=== PATIENT | male | born 1955 | race Caucasian/White ===

== ENCOUNTER → 2017-10-14 07:04 | Outpatient (CLI) | payer MEDICARE, SELFPAY ==
--- NOTE | 2017-10-14 07:06 | ECHOCS_ITS ---
Reason For Study: Dyspnea/SOB Procedure This was a 2D Doppler, Color Flow transthoracic echocardiogram. The exam was of poor technical quality due to body habitus. The study was technically difficult. Contrast injection was performed. Exam performed in department. Left Ventricle Mildly dilated left ventricle. Mild to moderate global left ventricular systolic dysfunction. The estimated ejection fraction is 40 %. There is evidence of diastolic dysfunction. Right Ventricle Normal RV size. ICD or pacer leads identified within the right ventricle. Normal systolic function. Atria Normal left atrium. Normal right atrium. ICD or pacer leads identified within the right atrium. No doppler evidence for ASD. Mitral Valve There is no mitral annular calcification. Normal mitral valve. Trivial mitral valve insufficiency. Tricuspid Valve Normal tricuspid valve. Trivial tricuspid valve insufficiency. Unable to estimate RV systolic pressure/pulmonary artery pressure due to technically difficult study. Aortic Valve Trisinus/trileaflet aortic valve. Normal aortic valve. Pulmonic Valve The pulmonic valve is not well visualized. Great Vessels Normal sized aortic root. Pericardium/Pleural No pericardial effusion. Medication 22 gauge I.V. with prn adaptor inserted into right arm. Diluted definity 2ml given slow IV push to enhance endocardial definition. MMode/2D Measurements & Calculations LVIDd: 5.6 cm IVSd: 1.1 cm Ao root diam: 3.4 cm LVIDs: 4.2 cm LVPWd: 1.4 cm LA dimension: 4.0 cm FS: 25.3 % LAV(MOD-bp): 60.7 ml LA A4 area: 16.4 cm2 RA A4 area: 13.7 cm2 LAV(MOD-bp) Indexed: 23.3 ml/m2 LAV(MOD-sp2): 80.5 ml LAV(MOD-sp4): 43.9 ml Time Measurements MV dec time: 0.16 sec Doppler Measurements & Calculations MV E max ian: 69.7 cm/sec Lat Peak E' Ian: 7.2 cm/sec Med Peak E' Ian: 4.0 cm/sec MV A max ian: 106.1 cm/sec E/E' lat: 9.6 E/E' med: 17.4 MV E/A: 0.66 MV V2 max: 123.9 cm/sec MV P1/2t max ian: 71.9 cm/sec Ao V2 max: 120.7 cm/sec MV max P.1 mmHg MV P1/2t: 130.5 msec Ao max P.8 mmHg MV V2 mean: 60.5 cm/sec MV dec slope: 161.4 cm/sec2 Ao V2 mean: 75.5 cm/sec MV mean P.8 mmHg MVA(P1/2t): 1.7 cm2 Ao mean P.7 mmHg MV V2 VTI: 35.5 cm Ao V2 VTI: 20.7 cm LV V1 max: 91.3 cm/sec PA V2 max: 80.9 cm/sec LV V1 max P.3 mmHg LV V1 mean P.6 mmHg LV V1 mean: 57.4 cm/sec LV V1 VTI: 19.1 cm Interpretation Summary The study was technically difficult. Contrast injection was performed. Mildly dilated left ventricle. Mild to moderate global left ventricular systolic dysfunction. The estimated ejection fraction is 40 %. Trivial mitral valve insufficiency. Trivial tricuspid valve insufficiency. Unable to estimate RV systolic pressure/pulmonary artery pressure due to technically difficult study. There is evidence of diastolic dysfunction. ICD or pacer leads identified within the right atrium ICD or pacer leads identified within the right ventricle. Ordering Physician: Jaden Ndiaye Referring Physician: Jaden Ndiaye Performed By: Mack King [facility]
--- NOTE | 2017-10-14 16:15 | STRESSREP ---
Stress Test Report Date: 10/14/2017 Procedure: Pharmacologic stress nuclear imaging study Indications: Shortness of breath/dyspnea Consent: Per the patient Procedure: The patient underwent pharmacologic (Regadenoson) evaluation with a peak heart rate of 80 beats per minute (50 predicted maximal heart rate) and a peak blood pressure of 146/94 mmHg. The baseline ECG demonstrated normal sinus rhythm with poor R-wave progression. The peak pharmacologic ECG demonstrated no obvious ECG changes. There were no cardiac dysrhythmias pretest, during pharmacologic infusion, or recovery. There was no complaint of chest discomfort during pharmacologic infusion or recovery. The examination was discontinued secondary to completion of protocol. Impression: 1. Pharmacologic (Regadenoson) evaluation 2. Peak pharmacologic ECG with no obvious ECG changes. 3. There were no cardiac dysrhythmias pretest, during pharmacologic infusion, or recovery 4. Nuclear images pending Myocardial perfusion imaging study: Technique: The patient was injected with 14 millicuries of technetium 99m Cardiolite and subsequently rest SPECT Cardiolite nuclear imaging was obtained in the horizontal long, vertical long, and short axis views. The patient underwent pharmacologic (Regadenoson) evaluation with a peak heart rate of 80 beats per minute (50 % percent predicted maximal heart rate) and a peak blood pressure of 146/94 mmHg. The patient was injected with 45 millicuries of technetium 99m Cardiolite and subsequently stress SPECT Cardiolite nuclear imaging was obtained in the horizontal long, vertical long, and short axis views. A gated Cardiolite study at peak stress was obtained. Interpretation: Rest and stress SPECT Cardiolite nuclear imaging status post realignment, normalization, and attenuation correction demonstrate the appearance of relative uniform tracer uptake and myocardial perfusion appearing within normal limits. There is end systolic thickening and brightening. The gated Cardiolite study demonstrates myocardial thickening and inward wall motion. The reported LVEF is 43 %. Impression: 1. Rest and stress SPECT Cardiolite nuclear imaging demonstrate relative uniform tracer uptake and myocardial perfusion appearing within normal limits. 2. The gated Cardiolite study reports an LVEF of 43 %. This note was generated with [employer] software. It may contain incorrect words, spelling, and punctuation that were not noted in checking the note before signing.
== END ==
PROVIDERS: Visit Provider Internal Medicine Cardiovascular Disease
DX: I42.0 Dilated cardiomyopathy (principal); I50.22 Chronic systolic (congestive) heart failure; R06.02 Shortness of breath
CPT/HCPCS: 78452; 93017; 93306; A9500; Q9957; A4216; C8929; J2785

== ENCOUNTER → 2018-04-07 10:58 | Outpatient (CLI) | payer MEDICARE, SELFPAY ==
[2018-04-07 13:07] LABS: AST(SGOT) 20 U/L (15-37); Alanine Aminotransfer ALT/SGPT 37 U/L (16-61); Albumin, Serum 3.7 g/dL (3.2-5.0); Alkaline Phosphatase 66 U/L (45-117); Anion Gap 7 (5-15); BUN 14 mg/dL (7-18); BUN/Creat Ratio 18.9 RATIO (10-20); Bilirubin, Direct 0.15 mg/dL (0.00-0.30); Calcium,Total 8.3 mg/dL (8.5-10.1); Chloride 104 mmol/L (98-107); Cholesterol 153 mg/dL (200); Creatinine, Serum 0.74 mg/dL (0.70-1.30); EST Glomerular Filtration Rate 113 mL/min (>60); Est Glom Filt Rate - Afr Amer 137 mL/min (>60); Globulin 3.6 g/dL (2.2-4.2); Glucose 112 mg/dL (74-106); High Density Lipoprotein 31 mg/dL; Potassium 4.1 mmol/L (3.5-5.1); Protein, Total 7.3 g/dL (6.4-8.2); Sodium Level 138 mmol/L (136-145); Triglycerides 295 mg/dL; Very Low Density Lipoprotein 59 mg/dL (5-40)
== END ==
PROVIDERS: Visit Provider Physician Assistant Medical
DX: I50.22 Chronic systolic (congestive) heart failure (principal); E78.5 Hyperlipidemia, unspecified
CPT/HCPCS: 36415; 80048; 80061; 80076

== ENCOUNTER → 2018-07-21 12:45 | Outpatient (CLI) | payer MEDICARE, SELFPAY ==
[2018-07-09 10:24] VITALS: BMI 35.8
--- NOTE | 2018-07-21 13:19 | ART_ITS ---
Reason For Study: PVD Procedure A bilateral lower extremity continuous wave Doppler with analog waveform analysis,segmental pressures,and ankle brachial indexes with exercise. Left Segmental Pressures Left brachial= 122mmHg. Left posterior tibial artery = 133mmHg. Left dorsalis pedis artery = 123mmHg. The left dorsalis pedis waveforms are triphasic. The left posterior tibial artery waveforms are triphasic. Right Segmental Pressures Right brachial= 123mmHg. Right thigh = 121mmHg. Right calf = 100mmHg. Right posterior tibial artery = 108mmHg. Right dorsalis pedis artery = 108mmHg. The right dorsalis pedis waveforms are biphasic. The right posterior tibial artery waveforms are biphasic. Indices The right ankle brachial index by the dorsalis pedis is 0.88. The right ankle brachial index by the posterior tibial artery is 0.88. The right post exercise ankle brachial index is 0.52. The left ankle brachial index by the dorsalis pedis is 1.00. The left ankle brachial index by the posterior tibial artery is 1.08. The left post exercise ankle brachial index is 0.87. Interpretation Summary Findings are consistent with vascular occlusive disease in the range of claudication more notable on the right than the left. The level of disease on the right may be superficial femoral/popliteal and on the left cannot be determined. Critical ischemia is not identified bilaterally. Ordering Physician: Taqueria Jo Performed By: Nikolay Brewer RVT and Student
== END ==
PROVIDERS: Referring Provider Surgery; Visit Provider Surgery
DX: I73.9 Peripheral vascular disease, unspecified (principal)
CPT/HCPCS: 93923

== ENCOUNTER → 2018-07-24 08:29 | Outpatient (CLI) | payer MEDICARE, SELFPAY ==
[2018-07-24 08:09] VITALS: BMI 35.8
[2018-07-24 09:11] LABS: Anion Gap 5 (5-15); BUN 15 mg/dL (7-18); BUN/Creat Ratio 18.6 RATIO (10-20); Calcium,Total 8.7 mg/dL (8.5-10.1); Chloride 102 mmol/L (98-107); Creatinine, Serum 0.81 mg/dL (0.70-1.30); EST Glomerular Filtration Rate 103 mL/min (>60); Est Glom Filt Rate - Afr Amer 124 mL/min (>60); Glucose 212 mg/dL (74-106); Sodium Level 135 mmol/L (136-145)
== END ==
PROVIDERS: Referring Provider Surgery; Visit Provider Surgery
DX: I73.9 Peripheral vascular disease, unspecified (principal); E78.5 Hyperlipidemia, unspecified
CPT/HCPCS: 36415; 80048

== ENCOUNTER → 2018-07-31 07:51 | Outpatient (CLI) | payer MEDICARE, SELFPAY ==
[2018-07-24 08:09] VITALS: BMI 35.8
--- NOTE | 2018-07-31 08:00 | CT_ITS ---
STUDY: CTA OF THE ABDOMINAL AORTA AND BILATERAL LOWER EXTREMITIES REASON FOR EXAM: Male, 62 years old. Peripheral vascular disease. RADIATION DOSAGE (If Supplied By Facility): CTDIvol = ( 7.79 ) mGy, DLP = ( 1812.95 ) mGycm TECHNIQUE: Axial CT angiography multi-detector data acquisition was obtained from the to the following intravenous administration of Isovue 370 100 IV. Axial images and MIP images were reconstructed from the axial data set. Post-processing of the angiographic images was performed, with multiplanar reformation and 3D reconstruction. Individualized dose optimization techniques were used for this CT. TECHNICAL QUALITY: Good COMPARISON: 02/17/2014. Descriptors of Narrowing: None (0%) Mild (< 50%) Moderate (50-70%) Severe (70-90%) Subtotal/Total Occlusion (90-100%) Non-Evaluable (technically non-diagnostic FINDINGS: There again is diffuse fatty infiltration of the liver. There is a 1.5 cm cyst in the spleen. There is a small cyst in the right kidney. There is no evidence of gallstones. The small bowel loops are normal in caliber. There is fecal retention. There is diverticulosis of the sigmoid colon with fluid-filled sigmoid colon. Acute diverticulitis is not definitely seen. Abdominal aorta: Large peripheral clots in the peripheral aspect of the aorta extending from the level of the renal arteries to the level of the bifurcation with significant narrowing markedly worse than the previous examination. The stenosis is most severe just proximal to the bifurcation where there is an area of near complete occlusion. Celiac and superior mesenteric arteries: No demonstrated narrowing. Inferior mesenteric artery: No demonstrated narrowing. Right renal artery(arteries): Minimal atherosclerotic calcification at its origin without significant stenosis. Left renal artery(arteries): No demonstrated narrowing. 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 Right external iliac artery: No demonstrated narrowing. Right internal iliac artery: There is moderate diffuse narrowing. Left common iliac artery: Eccentric atherosclerotic calcifications with no significant stenosis. Left external iliac artery: No demonstrated narrowing. Left internal iliac artery: No demonstrated narrowing. RIGHT LOWER EXTREMITY Right common femoral artery: No significant stenosis. Presence of femoral-femoral graft change since the prior exam. Right profundus femoris: No demonstrated narrowing. Right superficial femoral: No demonstrated narrowing. Right popliteal artery: No demonstrated narrowing. Right tibioperoneal trunk: No demonstrated narrowing. Right anterior tibial artery: No demonstrated narrowing. Right posterior tibial artery: No demonstrated narrowing. Right peroneal artery: No demonstrated narrowing. LEFT LOWER EXTREMITY Left common femoral artery: No demonstrated narrowing. Left profundus femoris: No demonstrated narrowing. Left superficial femoral: No demonstrated narrowing. Left popliteal artery: No demonstrated narrowing. Left tibioperoneal trunk: No demonstrated narrowing. Left anterior tibial artery: No demonstrated narrowing. Left posterior tibial artery: No demonstrated narrowing. Left peroneal artery: No demonstrated narrowing. CT/CTA Abd w/Runoff W/WO Contrast IMPRESSION: 1. Significant atherosclerotic plaques and thrombus in the distal abdominal aorta markedly worse than the previous examination. 2. 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 3. Femoral-femoral graft unchanged. 4. No significant stenosis is seen in both lower extremities. 5. Fatty infiltration of the liver. 6. Splenic and right renal cysts. Electronically Signed: Florencio Tam MD at 9:00 EST Tel , Service support ,
== END ==
PROVIDERS: Referring Provider Surgery; Visit Provider Surgery
DX: I73.9 Peripheral vascular disease, unspecified (principal)
CPT/HCPCS: 75635; Q9967

== ENCOUNTER → 2019-01-19 | Outpatient (CLI) | payer MEDICARE, SELFPAY ==
[2019-01-19 08:36] VITALS: BMI 36.2
[2019-01-19 13:03] LABS: AST(SGOT) 23 U/L (15-37); Alanine Aminotransfer ALT/SGPT 34 U/L (16-61); Albumin, Serum 3.6 g/dL (3.2-5.0); Alkaline Phosphatase 82 U/L (45-117); Bilirubin, Direct 0.08 mg/dL (0.00-0.30); Cholesterol 134 mg/dL (200); Globulin 3.6 g/dL (2.2-4.2); High Density Lipoprotein 32 mg/dL; Protein, Total 7.2 g/dL (6.4-8.2); Triglycerides 247 mg/dL; Very Low Density Lipoprotein 49 mg/dL (5-40)
== END | disposition home or self-care (01) ==
LOC: POLAB3 10:46
PROVIDERS: Visit Provider Physician Assistant Medical
DX: E78.00 Pure hypercholesterolemia, unspecified (principal)
CPT/HCPCS: 36415; 80061; 80076

== ENCOUNTER → 2019-07-20 08:24 | Outpatient (CLI) | payer MEDICARE, SELFPAY ==
[2019-07-19 09:51] VITALS: BMI 36.2
[2019-07-20 11:09] LABS: AST(SGOT) 23 U/L (15-37); Alanine Aminotransfer ALT/SGPT 39 U/L (16-61); Albumin, Serum 3.6 g/dL (3.2-5.0); Alkaline Phosphatase 96 U/L (45-117); Bilirubin, Direct 0.16 mg/dL (0.00-0.30); Cholesterol 148 mg/dL (200); Globulin 3.7 g/dL (2.2-4.2); High Density Lipoprotein 35 mg/dL; Protein, Total 7.3 g/dL (6.4-8.2); Triglycerides 279 mg/dL; Very Low Density Lipoprotein 56 mg/dL (5-40)
== END ==
PROVIDERS: Referring Provider Internal Medicine Cardiovascular Disease; Visit Provider Internal Medicine Cardiovascular Disease
DX: E78.00 Pure hypercholesterolemia, unspecified (principal)
CPT/HCPCS: 36415; 80061; 80076

== ENCOUNTER → 2020-02-01 09:21 | Outpatient (CLI) | payer MEDICARE, SELFPAY ==
[2020-01-24 08:32] VITALS: BMI 33.3
[2020-02-01 10:25] LABS: AST(SGOT) 21 U/L (15-37); Alanine Aminotransfer ALT/SGPT 37 U/L (16-61); Albumin, Serum 3.9 g/dL (3.2-5.0); Alkaline Phosphatase 91 U/L (45-117); Cholesterol 169 mg/dL (200); Globulin 3.6 g/dL (2.2-4.2); High Density Lipoprotein 35 mg/dL; Protein, Total 7.5 g/dL (6.4-8.2); Triglycerides 304 mg/dL; Very Low Density Lipoprotein 61 mg/dL (5-40)
== END ==
PROVIDERS: Referring Provider Internal Medicine Cardiovascular Disease; Visit Provider Internal Medicine Cardiovascular Disease
DX: E78.00 Pure hypercholesterolemia, unspecified (principal)
CPT/HCPCS: 36415; 80061; 80076

== ENCOUNTER → 2020-10-04 11:39 | Outpatient (CLI) | payer MEDICARE, SELFPAY ==
[2020-10-04 10:59] VITALS: BMI 36.2
[2020-10-04 12:43] LABS: AST(SGOT) 22 U/L (15-37); Alanine Aminotransfer ALT/SGPT 42 U/L (16-61); Albumin, Serum 3.8 g/dL (3.2-5.0); Alkaline Phosphatase 113 U/L (45-117); Bilirubin, Direct 0.14 mg/dL (0.00-0.30); Cholesterol 171 mg/dL (200); Globulin 3.7 g/dL (2.2-4.2); High Density Lipoprotein 38 mg/dL; Protein, Total 7.5 g/dL (6.4-8.2); Triglycerides 371 mg/dL; Very Low Density Lipoprotein 74 mg/dL (5-40)
== END ==
PROVIDERS: Visit Provider Internal Medicine Cardiovascular Disease
DX: E78.00 Pure hypercholesterolemia, unspecified (principal); I42.0 Dilated cardiomyopathy; I11.0 Hypertensive heart disease with heart failure; I50.22 Chronic systolic (congestive) heart failure; Z95.810 Presence of automatic (implantable) cardiac defibrillator
CPT/HCPCS: 36415; 80061; 80076

== ENCOUNTER → 2020-10-19 07:43 | Outpatient (CLI) | payer MEDICARE, SELFPAY ==
[2020-10-04 10:59] VITALS: BMI 36.2
--- NOTE | 2020-10-19 07:49 | ECHOCS_ITS ---
Reason For Study: CARDIOMYOPATHY Procedure This was a 2D Doppler, Color Flow transthoracic echocardiogram. The study was technically difficult. Contrast injection was performed. Exam performed in department. Left Ventricle Normal LV size. Mild global left ventricular systolic dysfunction. The estimated ejection fraction is 45 %. Septal bounce. Diastolic function is indeterminate. Right Ventricle Normal RV size. ICD or pacer leads identified within the right ventricle. Normal systolic function. Atria Normal left atrium. Normal right atrium. ICD or pacer leads identified within the right atrium. No doppler evidence for ASD. Mitral Valve There is no mitral annular calcification. Normal mitral valve. Trivial mitral valve insufficiency. Tricuspid Valve Normal tricuspid valve. Trivial tricuspid valve insufficiency. Unable to estimate RV systolic pressure/pulmonary artery pressure due to technically difficult study. Aortic Valve Trisinus/trileaflet aortic valve. Normal aortic valve. Pulmonic Valve The pulmonic valve is not well visualized. Trivial pulmonic valve insufficiency. Great Vessels Normal sized aortic root. Pericardium/Pleural No pericardial effusion. Medication 22 gauge I.V. with prn adaptor inserted into right arm. Diluted definity 3.0ml given slow IV push to enhance endocardial definition. MMode/2D Measurements & Calculations LVIDd: 5.3 cm IVSd: 1.1 cm Ao root diam: 3.8 cm LVIDs: 4.2 cm LVPWd: 1.0 cm RVDd: 3.4 cm FS: 21.2 % LAV(MOD-bp): 40.3 ml LA A4 area: 16.1 cm2 LA dimension(2D): 4.4 cm LAV(MOD-bp) Indexed: 16.1 ml/m2 LAV(MOD-sp2): 39.6 ml LAV(MOD-sp4): 36.6 ml RA A4 area: 13.5 cm2 Time Measurements MV dec time: 0.25 sec Doppler Measurements & Calculations MV E max ian: 55.1 cm/sec Lat Peak E' Ian: 7.7 cm/sec Med Peak E' Ian: 7.0 cm/sec MV A max ian: 110.4 cm/sec E/E' lat: 7.1 E/E' med: 7.8 MV E/A: 0.50 Ao V2 max: 135.1 cm/sec LV V1 max: 81.0 cm/sec PA V2 max: 91.4 cm/sec Ao max P.3 mmHg LV V1 max P.6 mmHg ECHO/Echo Complete W/ Contrast Interpretation Summary The study was technically difficult. Contrast injection was performed. Mild global left ventricular systolic dysfunction. The estimated ejection fraction is 45 %. Septal bounce. Trivial mitral valve insufficiency. Trivial tricuspid valve insufficiency. Trivial pulmonic valve insufficiency. Unable to estimate RV systolic pressure/pulmonary artery pressure due to techni elpidio difficult study. Diastolic function is indeterminate. ICD or pacer leads identified within the right atrium ICD or pacer leads identified within the right ventricle. Ordering Physician: Jaden Ndiaye Referring Physician: NO PCP Performed By: Jossy Patton, KARRIE, RVT
== END ==
PROVIDERS: Referring Provider Internal Medicine Cardiovascular Disease; Visit Provider Internal Medicine Cardiovascular Disease
DX: I50.22 Chronic systolic (congestive) heart failure (principal)
CPT/HCPCS: 93306; Q9957; C8929; J3490

== ENCOUNTER → 2021-04-09 09:28 | Outpatient (CLI) | payer MEDICARE, SELFPAY ==
[2021-04-09 12:47] LABS: AST(SGOT) 23 U/L (15-37); Alanine Aminotransfer ALT/SGPT 45 U/L (16-61); Albumin, Serum 3.7 g/dL (3.2-5.0); Alkaline Phosphatase 92 U/L (45-117); Bilirubin, Direct 0.13 mg/dL (0.00-0.30); Cholesterol 176 mg/dL (200); Globulin 3.6 g/dL (2.2-4.2); High Density Lipoprotein 33 mg/dL; Protein, Total 7.3 g/dL (6.4-8.2); Triglycerides 420 mg/dL
== END ==
PROVIDERS: Nurse Practitioner Family; Visit Provider Internal Medicine Cardiovascular Disease
DX: I42.0 Dilated cardiomyopathy (principal); E78.00 Pure hypercholesterolemia, unspecified; I50.22 Chronic systolic (congestive) heart failure; I73.9 Peripheral vascular disease, unspecified
CPT/HCPCS: 36415; 80061; 80076

== ENCOUNTER 2021-05-20 14:00 | Inpatient (IN) | payer MEDICARE, SELFPAY ==
[2021-05-20] VITALS (13 sets, daily range): BP systolic 93–126; BP diastolic 74–98; PULSE 84–95; RESP 18–26; TEMP 35.8–36.7; O2SAT 88–95; BMI 33.3; BMI 31.9
--- NOTE | 2021-05-20 15:08 | EDS_ITS ---
HPI History of Present Illness Chief Complaint: Shortness of Breath Informant: patient Onset/Context/Timing Onset: Days Context: gradual Timing: Continuous Current Severity: Mild Maximum Severity: Mild Associated Symptoms cough; Negative for fever, sore throat or chills Chest Pain: Positive for None Narrative Narrative: 65-year-old male history of CHF and pacemaker. States has been short of breath the last 2 to 3 days. Mild chills and cough. Cough is nonproductive. No chest pain. No hemoptysis. No fever. No vomiting or diarrhea. No melena. States had CHF before this feels a little different. He denies any leg pain or swelling. No history of DVT or PE. No recent travel, surgery or immobilization. No recent hospitalization. PE Risk Factors: Negative for Cancer, OCP + Smoking + > 35, Prior DVT or PE, Recent immobilization, Recent surgery and Recent travel Prior similar symptoms: Yes Recent Illness/Hospitalization: No PFSH PFSH Medical History Anxiety Arthritis Cardiomyopathy, dilated Chronic systolic congestive heart failure Depression Essential hypertension NINO (obstructive sleep apnea) Peripheral vascular disease Pure hypercholesterolemia Home Medications aspirin 325 mg tablet 325 mg PO QDAY tab 09/29/17 [History Last Taken Unknown] HANDICAP PLACARD #1 ea 03/09/20 [Rx Last Taken Unknown] lisinopril 20 mg tablet 20 mg PO BID #180 tab 09/11/20 [Rx Last Taken Unknown] furosemide 40 mg tablet 40 mg PO QDAY #90 tab 09/19/20 [Rx Last Taken Unknown] potassium chloride 20 mEq tablet,extended release 20 meq PO QDAY #90 tab 09/25/20 [Rx Last Taken Unknown] amlodipine 10 mg tablet 10 mg PO DAILY #90 tab 10/04/20 [Rx Last Taken Unknown] atenolol 50 mg tablet 50 mg PO BID #180 tab 10/04/20 [Rx Last Taken Unknown] pravastatin 80 mg tablet 80 mg PO QHS #90 tab 10/25/20 [Rx Last Taken Unknown] fenofibrate micronized 130 mg capsule 130 mg PO QDAY #30 cap 04/09/21 [Rx Last Taken Unknown] Allergy/AdvReac Type Severity Reaction Status Date / Time No Known Allergies Allergy Verified 10/04/20 10:50 Family History Father Heart disease CVA (cerebral vascular accident) Mother Hypertension Surgical History History of tonsillectomy Presence of cardiac defibrillator (11/08/10) Social History Smoking Status: Former smoker Smokeless tobacco user: other alcohol intake: current alcohol intake frequency: a few times a month substance use type: marijuana caffeine: Yes Type: carbonated beverages Number of servings: 2 and coffee Number of servings: 2 ROS ROS ED ROS Narrative non- productive cough with chills. Shortness of breath. Review of Systems ROS Unobtainable: Denies due to encephalopathy Constitutional Constitutional ED: Reports chills; Denies fever(s) Eyes Eyes: Denies change in vision ENT ENT ED: Denies ear pain Cardiovascular Cardiovascular: Denies chest pain Respiratory/Chest Respiratory/Chest: Reports cough and dyspnea Gastrointestinal Gastrointestinal: Denies abdominal pain, diarrhea, nausea or vomiting Genitourinary Genitourinary ED: Denies dysuria Musculoskeletal Musculoskeletal: Denies myalgias Integumentary Denies rash Neurologic Neurologic: Denies headache(s) Psychiatric Psychiatric: Denies depression Endocrine Endocrinology: Denies polyuria Hematologic/Lymphatic Hematologic/Lymphatic: Denies easy bruising Allergic/Immunologic Allergic/Immunologic ED: Denies urticaria EXAM Physical Exam Narrative Exam Narrative: 65-year-old male pulse ox 88% on room air 95% on 6 L. He does not look septic or toxic. Blood pressures running low at 92/74. H EENT exam unremarkable. Nontender no JVD. Lungs clear to auscultation bilaterally. Heart regular rhythm no murmur. Abdomen soft nontender normal bowel sounds no peritoneal signs. Moving all 4 extremities. Calves are nontender without edema or cords. Neurologically is awake and alert with no focal motor deficits. Const Vital Signs: 05/20/21 14:01 05/20/21 14:08 05/20/21 15:09 Temperature 97.1 F L Temperature Source Axillary Pulse Rate 86 87 Respiratory Rate 24 H 24 H Respiratory Effort Respiratory Depth Respiratory Pattern Blood Pressure 93/74 98/74 Blood Pressure Mean 80 82 Pulse Ox 88 95 93 Oxygen Delivery Method Room Air Nasal Cannula Nasal Cannula Oxygen Flow Rate (L/min) 6 5 05/20/21 15:17 05/20/21 15:24 05/20/21 17:07 Temperature Temperature Source Pulse Rate 84 Respiratory Rate 18 Respiratory Effort Short of Breath Respiratory Depth Normal Respiratory Pattern Normal Blood Pressure 95/81 H Blood Pressure Mean 85 Pulse Ox 93 90 Oxygen Delivery Method Room Air Nasal Cannula Nasal Cannula Oxygen Flow Rate (L/min) 3 05/20/21 18:20 05/20/21 19:01 Temperature Temperature Source Pulse Rate 93 87 Respiratory Rate 24 H 22 H Respiratory Effort Respiratory Depth Respiratory Pattern Blood Pressure 106/88 H 106/80 Blood Pressure Mean 94 88 Pulse Ox 93 90 Oxygen Delivery Method Nasal Cannula Nasal Cannula Oxygen Flow Rate (L/min) 3 3 Positive well nourished, well developed and obese; Negative for cachectic, contractures or unkempt General Appearance ED: well developed and NAD; Negative for unkempt, cachectic, contractures or pallor Nutritional Appearance: obese; Negative for cachectic HEENT Reports moist mucous membranes atraumatic; Negative for trauma Eyes PERRL and EOMs intact bilaterally Neck no lymphadenopathy and supple Resp normal respiratory effort and clear to auscultation bilaterally Auscultation: Negative for rales, rhonchi or wheezes Cardio regular rate, regular rhythm, S1 normal heart sound, S2 normal heart sound and no murmurs GI non-tender, non-distended and no masses Auscultation: normoactive bowel sounds Palpation: soft; Negative for tender, guarding or rebound tenderness present Back/Spine no CVA tenderness and normal to inspection General Back: Negative for CVA tenderness Extremity normal to inspection General Extremety ED: Negative for edema or tenderness General Extremity: Negative for edema Neuro oriented x3 Sensorium / Orientation: alert, oriented to person, oriented to place and oriented to time; Negative for orientation impaired, confused, lethargic or stuporous Motor Exam: strength 5/5 throughout Psych mental status grossly normal Appearance: Negative for unkempt Thought Process: normal thought process Skin no wounds and No skin turgor normal General Skin Exam: Negative for jaundice or pallor Lesions: no lesions Rashes: no rashes MDM MDM MDM Narrative Medical decision making narrative: 65-year-old hypoxic male with a known history of prior CHF. We worked up for respiratory infection, Covid, pneumonia versus CHF or other etiologies. Multiple repeat exams. The patient has had episodes of hypoxia into the high 80s. He is not on oxygen at home. For that reason I did a D-dimer which was elevated and CT of his chest which showed pulmonary emboli. Patient is currently doing well at 9:15 PM. My concern is he 65 he has 2 new significant diagnoses acute bilateral pulmonary emboli with hypoxia and the second new onset diabetes. I think he needs to be admitted to be started on blood thinners and have diabetic teaching and oxygen for his hypoxia. I discussed this with the hospitalist. Patient is comfortable with the plan. Lab Data Attestation: I reviewed the patient's lab results. Lab results narrative: CBC shows a white count 9.8. Hemoglobin 17.4. Platelets 180. INR 1.2. Chest x-ray no acute process. Chemistries show sodium 131 gap of 11 BUN 31 creatinine 1.37. Glucose is elevated 516 with a normal gap. Troponin is normal at 36 and BNP is 411. INR is 1.2. D-dimer was elevated. CTA chest obtained which showed bilateral pulmo nary emboli. Labs: Laboratory Results - last 24 hr 05/20/21 05/20/21 05/20/21 14:08 14:08 14:08 WBC 9.8 RBC 5.38 Hgb 17.4 H Hct 50.7 MCV 94.2 H MCH 32.3 H MCHC 34.3 RDW Std Deviation 43.9 RDW Coeff of Bessie 13.2 Plt Count 180 MPV 11.6 Immature Gran % (Auto) 1.700 H Neut % (Auto) 66.1 Lymph % (Auto) 22.1 [place] % (Auto) 9.1 Eos % (Auto) 0.2 Baso % (Auto) 0.8 Absolute Neuts (auto) 6.5 Absolute Lymphs (auto) 2.17 Nucleated RBC % 0 PT INR D-Dimer Quant (PE/DVT) Sodium 131 L Potassium 4.6 Chloride 95 L Carbon Dioxide 25.0 Anion Gap 11 BUN 31 H Creatinine 1.37 H Estim Creat Clear Calc 66.00 Est GFR (MDRD) Af Amer 67 Est GFR (MDRD) Non-Af 55 L BUN/Creatinine Ratio 22.6 H Glucose 516 H* Calcium 9.3 Troponin I High Sens 36 B-Natriuretic Peptide 411.7 H POC Glucose 05/20/21 05/20/21 05/20/21 15:21 15:21 19:07 WBC RBC Hgb Hct MCV MCH MCHC RDW Std Deviation RDW Coeff of Bessie Plt Count MPV Immature Gran % (Auto) Neut % (Auto) Lymph % (Auto) [place] % (Auto) Eos % (Auto) Baso % (Auto) Absolute Neuts (auto) Absolute Lymphs (auto) Nucleated RBC % PT 14.2 INR 1.2 D-Dimer Quant (PE/DVT) 7.93 H* Sodium Potassium Chloride Carbon Dioxide Anion Gap BUN Creatinine Estim Creat Clear Calc Est GFR (MDRD) Af Amer Est GFR (MDRD) Non-Af BUN/Creatinine Ratio Glucose Calcium Troponin I High Sens B-Natriuretic Peptide POC Glucose 360 H Radiography Chest X-Ray - ED: 1 View, Read by ED Physician, Read by Radiologist, Heart, Lungs, Mediastinum, Bony Structures, No Acute Disease and Chronic Changes Diagnostic Testing: Clinical Impression(s) from Imaging Studies Chest X-Ray 05/20/21 15:25 IMPRESSION: No acute cardiopulmonary process. Electronically Signed: Sudheer Roy MD at 16:09 EST Tel , Service support , Chest CTA 05/20/21 18:07 IMPRESSION: Bilaterally pulmonary embolism. No arterial dissection. Left upper lobe infiltrate. Fluid distended esophagus. Electronically Signed: David Maharaj DO at 19:15 EST Tel [phone], Service support , ADDENDUM: 05/20/211946 IMPRESSION: Bilaterally pulmonary embolism. No arterial dissection. Left upper lobe infiltrate. Fluid distended esophagus. N.B. : The above Results were Read Back by David Maharaj DO to Dr Peter MD, and understanding confirmed on 05/20/2021 19:40:37 (ET). Electronically Signed: David Maharaj DO at 19:15 EST Tel [phone], Service support , Chest x-ray, portable single view shows no acute abnormality. Left-sided pacemaker. Rhythm Strip Rhythm Strip: Sinus Rhythm Rate: 88 Ectopy: None EKG Initial EKG: Attestation: I personally reviewed and interpreted this EKG as follows: Interpretation: Sinus Rhythm and No Acute Injury Pattern Comments: Normal sinus rhythm rate 88 no acute signs of NV nor ischemia. Discharge Plan Triage Chief Complaint: Shortness of Breath ED Provider: Best Green Dx/Rx/DC Orders Clinical Impression: Diabetes mellitus, new onset, Acute hyperglycemia, Acute renal insufficiency, Hypoxia, Bilateral pulmonary embolism Prescriptions: No Action aspirin 325 mg tablet 325 mg PO QDAY RF: 0 amlodipine 10 mg tablet 10 mg PO DAILY Qty: 90 RF: 4 atenolol 50 mg tablet 50 mg PO BID Qty: 180 RF: 4 (DME) HANDICAP PLACARD See Rx Instructions .Route .MEDSUPPLY Qty: 1 RF: 0 lisinopril [Prinivil] 20 mg tablet 20 mg PO BID Qty: 180 RF: 3 furosemide 40 mg tablet 40 mg PO QDAY Qty: 90 RF: 3 potassium chloride 20 mEq tablet extended release 20 meq PO QDAY Qty: 90 RF: 3 pravastatin 80 mg tablet 80 mg PO QHS Qty: 90 RF: 3 fenofibrate micronized 130 mg capsule 130 mg PO QDAY Qty: 30 RF: 4 Primary Care Provider: Care Physician,No Primary Referrals: Care Physician,No Primary [Primary Care Provider] -
--- NOTE | 2021-05-20 15:13 | EKG12_ITS ---
Test Reason : SOB Blood Pressure : / mmHG Vent. Rate : 088 BPM Atrial Rate : 088 BPM P-R Int : 168 ms QRS Dur : 108 ms QT Int : 408 ms P-R-T Axes : 035 -65 058 degrees QTc Int : 493 ms Normal sinus rhythm Left axis deviation Anterior infarct , age undetermined Abnormal ECG Confirmed by FIONA DEL RIO, GILDA ([id number]), acquisitions editor ADOLFO PAK ([id number]) on 05/22/2021 9:57:14 AM Referred By: CRISTINA Confirmed By:GILDA JAIMES MD
--- NOTE | 2021-05-20 15:25 | RAD_ITS ---
STUDY: X-RAY CHEST REASON FOR EXAM: Male, 65 years old. chest pain TECHNIQUE: 1 view COMPARISON: None. FINDINGS: Left-sided unipolar pacemaker is in place. Cardiomediastinal silhouette is unremarkable. Costophrenic angles are sharp. Lungs are clear. The trachea is midline. There is no pneumothorax. Multilevel thoracic spondylosis is noted. RAD/Chest 1 View (Portable) IMPRESSION: No acute cardiopulmonary process. Electronically Signed: Sudheer Roy MD at 16:09 EST Tel , Service support ,
[2021-05-20 15:46] LABS: International Normalized Ratio 1.2; Prothrombin Time (Protime)PT. 14.2 SECONDS (11.7-14.9)
[2021-05-20 15:55] LABS: Absolute Lymphocyte Count 2.17 X10^3/uL (0.83-4.51); Absolute Neutrophil Count 6.5 X10^3/uL (2.0-7.7); Basophil# 0.08 X10^3/uL; Basophil% 0.8 % (0-1); Eosinophil# 0.02 X10^3/uL; Eosinophils% 0.2 % (0-5); Hematocrit 50.7 % (40-54); Hemoglobin 17.4 g/dL (13.0-16.5); Lymphocyte # 2.17 X10^3/ul (0.83-4.51); Lymphocyte % 22.1 % (19-41); Mean Corp Hgb Conc 34.3 g/dL (32-36); Mean Corpuscular Hgb 32.3 pg (27.0-32.0); Mean Corpuscular Volume 94.2 fL (80-94); Mean Platelet Vol. 11.6 fl (6.2-12.0); Monocyte# 0.89 X10^3/uL; Monocyte% 9.1 % (0-10); NRBC Flagged by Analyzer 0 % (0-5); Neutrophil % 66.1 % (47-70); Platelet Count 180 K/mm3 (150-450); RBC Distribution Width CV 13.2 % (11.6-14.6); RBC Distribution Width SD 43.9 fl (35.1-43.9); Red Blood Count 5.38 M/mm3 (4.6-6.2); White Blood Count 9.8 K/mm3 (4.4-11.0)
[2021-05-20 16:18] LABS: BNP,B-Type NATRIURETIC PEPTIDE 411.7 pg/mL (0-100)
[2021-05-20 16:23] LABS: Anion Gap 11 (5-15); BUN 31 mg/dL (7-18); BUN/Creat Ratio 22.6 RATIO (10-20); Calcium,Total 9.3 mg/dL (8.5-10.1); Chloride 95 mmol/L (98-107); Creatinine, Serum 1.37 mg/dL (0.70-1.30); EST Glomerular Filtration Rate 55 mL/min (>60); Est Glom Filt Rate - Afr Amer 67 mL/min (>60); Glucose 516 mg/dL (74-106); Potassium 4.6 mmol/L (3.5-5.1); Sodium Level 131 mmol/L (136-145); Troponin-I HS 36 pg/mL (3.0-78.0)
[2021-05-20] MEDS: 0.9% Normal Saline 1,000 ML 999 ML IV (17:34)
[2021-05-20 18:05] LABS: D-Dimer Quantitative (DVT/PE) 7.93 FEU/ug/m (0.27-0.49)
--- NOTE | 2021-05-20 18:07 | CT_ITS ---
We are attempting to reach an attending provider to discuss findings. An addendum with communication details will be sent when the communication is complete. STUDY: CTA CHEST REASON FOR EXAM: Male, 65 years old. hypoxia. Elevated d-dimer RADIATION DOSAGE (If Supplied By Facility): CTDIvol = ( 16.23 ) mGy, DLP = ( 552.91 ) mGycm TECHNIQUE: The examination was performed with the intravenous administration of IV 100mL Isovue-370. Post-processing of the angiographic images was performed, with multiplanar reformation and 3D reconstruction. Individualized dose optimization techniques were used for this CT. COMPARISON: None. FINDINGS: There are filling defects of the right and left pulmonary arteries. No filling defects of the bilateral peripheral pulmonary arteries. This is compatible with bilateral pulmonary embolism. Normal thoracic aorta and visualized great vessels. There is no demonstrated aortic dissection. Normal heart and pericardium. Normal mediastinum. Normal hilar regions. Normal visualized trachea and bronchi. The lungs are well expanded. Left upper lobe infiltrate. Normal pleura. Normal chest wall structures. Fluid distended esophagus. Degenerative vertebral changes. Normal visualized upper abdomen. CT/CTA Chest W/WO Contrast IMPRESSION: Bilaterally pulmonary embolism. No arterial dissection. Left upper lobe infiltrate. Fluid distended esophagus. Electronically Signed: David Maharaj DO at 19:15 EST Tel [phone], Service support ,
[2021-05-20] MEDS: metFORMIN HCl 500 MG Tablet PO (18:19)
[2021-05-20 19:10] LABS: Bedside Glucose 360 mg/dL (70-110)
[2021-05-20] MEDS: APIXABAN 5 MG TABLET 10 MG PO (21:48)
--- NOTE | 2021-05-20 21:51 | PCM.HP.STD ---
HPI - General General Date of Admission: 05/20/21 HPI Narrative RENETTA FERNANDEZ, is a 65 M with a significant history of congestive heart failure; and permanent pacemaker with defibrillator who presents to the emergency department with 4-day history of progressively worsening shortness of breath. His shortness of breath is with mild exertion. Associated with symptoms is chills and intermittent dry cough. He denies any fever. At the emergent department patient was found to have bilateral PE. He denies any recent immobility. 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 His last colonoscopy was about 10 years ago. [facility] Medical History Anxiety Arthritis Cardiomyopathy, dilated Chronic systolic congestive heart failure Depression Essential hypertension NINO (obstructive sleep apnea) Peripheral vascular disease Pure hypercholesterolemia Home Medications aspirin 325 mg tablet 325 mg PO QDAY tab 09/29/17 [History Last Taken Unknown] HANDICAP PLACARD #1 ea 03/09/20 [Rx Last Taken Unknown] lisinopril 20 mg tablet 20 mg PO BID #180 tab 09/11/20 [Rx Last Taken Unknown] furosemide 40 mg tablet 40 mg PO QDAY #90 tab 09/19/20 [Rx Last Taken Unknown] potassium chloride 20 mEq tablet,extended release 20 meq PO QDAY #90 tab 09/25/20 [Rx Last Taken Unknown] amlodipine 10 mg tablet 10 mg PO DAILY #90 tab 10/04/20 [Rx Last Taken Unknown] atenolol 50 mg tablet 50 mg PO BID #180 tab 10/04/20 [Rx Last Taken Unknown] pravastatin 80 mg tablet 80 mg PO QHS #90 tab 10/25/20 [Rx Last Taken Unknown] fenofibrate micronized 130 mg capsule 130 mg PO QDAY #30 cap 04/09/21 [Rx Last Taken Unknown] Allergy/AdvReac Type Severity Reaction Status Date / Time No Known Allergies Allergy Verified 10/04/20 10:50 Family History Father Heart disease CVA (cerebral vascular accident) Mother Hypertension Surgical History History of tonsillectomy Presence of cardiac defibrillator (11/08/10) Social History Smoking Status: Former smoker Smokeless tobacco user: other alcohol intake: current alcohol intake frequency: a few times a month substance use type: marijuana caffeine: Yes Type: carbonated beverages Number of servings: 2 and coffee Number of servings: 2 ROS ROS Narrative Constitutional: Reports chills. Denies fever, anorexia and change in weight Eyes: Denies blurry vision, change in eye color, change in vision, discharge from eye(s), double vision, erythema, eye pain, loss of vision or other HEENT: Denies abnormal hearing, dysphagia, ear pain, epistaxis, headache(s), hearing loss, nasal congestion, nasal discharge, post nasal drip, sinus pressure, sore throat or other Cardiovascular: Denies chest pain or palpitations. Respiratory/Chest: Reports dry cough. Denies excessive phlegm production. Gastrointestinal: Denies abdominal pain, coffee ground emesis, constipation, diarrhea, dyspepsia, hematemesis, hematochezia, loose stools, melena, nausea, vomiting or other Genitourinary: Reports decrease in urinary frequency. Denies burning urination, difficulty urinating, dysuria, hematuria, nocturia, urinary frequency, urinary hesitancy, urinary incontinence, urinary urgency or other Musculoskeletal: Denies arthralgias, back pain, joint pain, joint stiffness, joint swelling, myalgias, neck pain or other Neurologic: Denies abnormal gait, abnormal speech, confusion, disequilibrium, dizziness, focal weakness, headache(s), numbness, paresthesias, seizure-like activity, seizures, syncope, tingling, tremor(s) or other Psychiatric: Denies anxiety, depression, homicidal ideation, suicidal ideation or other Endocrinology: Reports polydipsia. Denies change in body appearance, cold intolerance, excessive sweating, heat intolerance, polyuria or other Hematologic/Lymphatic: Denies anemia, easy bleeding, easy bruising, lymphadenopathy or other Integumentary: Denies rashes Allergic/Immunologic: Denies rhinitis, hives, eczema, asthma or other Vital Signs Vital Signs Vital Signs: 05/20/21 14:01 05/20/21 14:08 05/20/21 15:09 Temperature 97.1 F L Temperature Source Axillary Pulse Rate 86 87 Respiratory Rate 24 H 24 H Respiratory Effort Respiratory Depth Respiratory Pattern Blood Pressure 93/74 98/74 Blood Pressure Mean 80 82 Pulse Ox 88 95 93 Oxygen Delivery Method Room Air Nasal Cannula Nasal Cannula Oxygen Flow Rate (L/min) 6 5 05/20/21 15:17 05/20/21 15:24 05/20/21 17:07 Temperature Temperature Source Pulse Rate 84 Respiratory Rate 18 Respiratory Effort Short of Breath Respiratory Depth Normal Respiratory Pattern Normal Blood Pressure 95/81 H Blood Pressure Mean 85 Pulse Ox 93 90 Oxygen Delivery Method Room Air Nasal Cannula Nasal Cannula Oxygen Flow Rate (L/min) 3 05/20/21 18:20 05/20/21 19:01 05/20/21 21:22 Temperature Temperature Source Pulse Rate 93 87 95 Respiratory Rate 24 H 22 H 26 H Respiratory Effort Respiratory Depth Respiratory Pattern Blood Pressure 106/88 H 106/80 118/87 H Blood Pressure Mean 94 88 97 Pulse Ox 93 90 92 Oxygen Delivery Method Nasal Cannula Nasal Cannula Nasal Cannula Oxygen Flow Rate (L/min) 3 3 Weight Weight: 124.4 kg Body Mass Index (BMI) 33.3 Physical Exam Narrative Physical exam: General: Well-nourished, well-developed. Head: Normocephalic, atraumatic, no tenderness Eyes: PERRLA, EOMI ENT, no trauma, moist mucous membranes, no rhinorrhea Neck: Nontender, full range of motion, no spinal tenderness, deformities, step-off CVS: Regular rate and rhythm. S1-S2 present. No murmur, gallop or rub. Respiratory : Tachypnea. Use accessory muscles of respiration. Clear to auscultation bilaterally, chest wall nontender, no wheezing Abdomen: Soft, nontender, nondistended, normal bowel sounds, no masses : Deferred Back: Nontender, no CVA tenderness, no midline spinal tenderness, deformities, step-offs Extremities: Nontender full range of motion, no trauma. Cold feet (states chronic) Skin: Normal color, no trauma, abrasions Neuro: Alert, oriented, cranial nerves II through XII grossly intact. Psychiatry: Normal mood. Normal affect. Not depressed. Not anxious. Results Lab / Micro Data Result Diagrams: 05/20/21 14:08 05/20/21 14:08 Labs: Laboratory Results - last 24 hr 05/20/21 14:08: WBC 9.8, RBC 5.38, Hgb 17.4 H, Hct 50.7, MCV 94.2 H, MCH 32.3 H, MCHC 34.3, RDW Std Deviation 43.9, RDW Coeff of Bessie 13.2, Plt Count 180, MPV 11.6, Immature Gran % (Auto) 1.700 H, Neut % (Auto) 66.1, Lymph % (Auto) 22.1, [place] % (Auto) 9.1, Eos % (Auto) 0.2, Baso % (Auto) 0.8, Absolute Neuts (auto) 6.5, Absolute Lymphs (auto) 2.17, Nucleated RBC % 0 05/20/21 14:08: Sodium 131 L, Potassium 4.6, Chloride 95 L, Carbon Dioxide 25.0, Anion Gap 11, BUN 31 H, Creatinine 1.37 H, Estim Creat Clear Calc 66.00, Est GFR (MDRD) Af Amer 67, Est GFR (MDRD) Non-Af 55 L, BUN/Creatinine Ratio 22.6 H, Glucose 516 H*, Calcium 9.3, Troponin I High Sens 36 05/20/21 14:08: B-Natriuretic Peptide 411.7 H 05/20/21 15:21: PT 14.2, INR 1.2 05/20/21 15:21: D-Dimer Quant (PE/DVT) 7.93 H* 05/20/21 19:07: POC Glucose 360 H Micro: Microbiology 05/20/21 15:05 Nasal Secretion SARS-CoV-2 Antigen (Rapid) - Final Rhythm Strip Rhythm Strip: Sinus Rhythm Rate: 88 Ectopy: None Radiology Impression Chest X-Ray 05/20/21 15:25 IMPRESSION: No acute cardiopulmonary process. Electronically Signed: Sudheer Roy MD at 16:09 EST Tel , Service support , Chest CTA 05/20/21 18:07 IMPRESSION: Bilaterally pulmonary embolism. No arterial dissection. Left upper lobe infiltrate. Fluid distended esophagus. Electronically Signed: David Maharaj DO at 19:15 EST Tel [phone], Service support , ADDENDUM: 05/20/211946 IMPRESSION: Bilaterally pulmonary embolism. No arterial dissection. Left upper lobe infiltrate. Fluid distended esophagus. N.B. : The above Results were Read Back by David Maharaj DO to Dr Peter MD, and understanding confirmed on 05/20/2021 19:40:37 (ET). Electronically Signed: David Maharaj DO at 19:15 EST Tel [phone], Service support , Assessment & Plan Assessment/Plan (1) Bilateral pulmonary embolism: (2) Acute hyperglycemia: (3) Hypoxia: PLAN: Acute hypoxemic respiratory failure secondary to bilateral pulmonary embolism. Patient requiring supplemental oxygen at the emergency department. Tachypnea, using accessory muscles of respiration. Chest CTA was independently interpreted and I agree with radiologist interpretation of bilateral pulmonary embolism; and Left upper lobe infiltrate. Of note patient has no white count but he has bandemia of 1.7%. He has no fever. He reports chills at home. His symptoms are most likely from his bilateral pulmonary embolism and less likely pneumonia. Will not initiate antibiotics at this time. Will trend CBC and BMP. Discussed with emergency department doctor to initiate Eliquis. We will continue Eliquis. In view of starting patient on Eliquis will de-escalate home full dose aspirin to baby aspirin daily. Acute hyperglycemia Likely new onset diabetes. Given Metformin and a fluid bolus at the ED. Of note patient has a history of CHF and on home Lasix. Patient does not want to be started on insulin if possible. Will check A1c. Accu-Chek QA CHS with correction scale insulin. Cardiac and diabetic diet. Diabetic education. Hypertension Blood pressure is not within goal Atenolol, furosemide, amlodipine and lisinopril continued. Trend blood pressure and adjust blood pressure medications. Heart failure with reduced ejection fraction Does not appear fluid overloaded. Continue current medication. Last echocardiogram on file was on 10/19/2020. Echocardiogram showed estimated ejection fraction with of 45%. Diastolic function was indeterminate. Patient had trivial mitral valve insufficiency. Right ventricular systolic pressure was unable to be determined. Patient had trivial pulmonary valve insufficiency. Lasix, atenolol and lisinopril continued. Hyperlipidemia Pravastatin and fenofibrate continued. DVT prophylaxis not indicated as patient has been started on Eliquis. Charges/Coding Visit Charges Inpatient E&M: 88583 Init Hosp L3
[2021-05-20 22:00] LABS: Bedside Glucose 316 mg/dL (70-110)
--- NOTE | 2021-05-20 22:11 | ECHOD_ITS ---
Reason For Study: emboli Procedure This was a 2D Doppler, Color Flow transthoracic echocardiogram. The study was technically difficult. Due to body habitus and deep respirations/SOB. Definity deferred due to increased PAP >65mmHg. Exam performed portable in patient room. Left Ventricle Normal LV size. D shaped septum in systole and diastole. Left ventricular systolic function is lower limits of normal. Stage 1 diastolic dysfunction. No regional wall motion abnormalities noted. Right Ventricle Moderately dilated right ventricle. ICD or pacer leads identified within the right ventricle. Moderate global right ventricular systolic dysfunction. Atria Normal left atrium. The right atrium is mildly enlarged. Mitral Valve Normal mitral valve. Mild (1+) eccentric mitral valve insufficiency. Tricuspid Valve Normal tricuspid valve. Moderate (2+) tricuspid valve insufficiency. Pulmonary artery systolic pressure is 70 mmHg. Severe pulmonary hypertension. Aortic Valve Trisinus/trileaflet aortic valve. Pulmonic Valve Normal pulmonic valve. Great Vessels Normal aortic root. The pulmonary artery is normal size. Normal inferior vena cava. Pericardium/Pleural No pericardial effusion. MMode/2D Measurements & Calculations LVIDd: 4.8 cm IVSd: 1.1 cm Ao root diam: 3.8 cm LVIDs: 3.8 cm LVPWd: 1.1 cm RVDd: 4.3 cm FS: 21.3 % LAV(MOD-bp): 51.3 ml LA A4 area: 19.1 cm2 LA dimension(2D): 3.6 cm LAV(MOD-bp) Indexed: 20.3 ml/m2 LAV(MOD-sp2): 45.6 ml LAV(MOD-sp4): 50.4 ml RA A4 area: 24.0 cm2 Doppler Measurements & Calculations MV E max ian: 42.4 cm/sec Lat Peak E' Ian: 6.8 cm/sec Med Peak E' Ian: 4.2 cm/sec MV A max ian: 95.1 cm/sec E/E' lat: 6.3 E/E' med: 10.1 MV E/A: 0.45 Ao V2 max: 122.5 cm/sec LV V1 max: 65.1 cm/sec PA V2 max: 62.5 cm/sec Ao max P.0 mmHg LV V1 max P.7 mmHg TR max ian: 377.9 cm/sec TR max P.1 mmHg ECHO/Echo Complete Interpretation Summary Moderately dilated right ventricle. Moderate global right ventricular systolic dysfunction. Normal LV size. Left ventricular systolic function is lower limits of normal. Stage 1 diastolic dysfunction. D shaped septum in systole and diastole. Pulmonary artery systolic pressure is 70 mmHg. Severe pulmonary hypertension. Ordering Physician: Se Grijalva Referring Physician: MAR PCP Performed By: Jossy Patton RDCS, RVT
[2021-05-20] MEDS: Insulin Lispro 100 UNIT/ML INSULN.PEN SC (22:38)
[2021-05-20] MEDS: Atenolol 50 MG Tablet PO (22:39)
[2021-05-20] MEDS: Lisinopril 20 MG Tablet PO (22:39)
[2021-05-20] MEDS: Pravastatin 80 MG Tablet PO (22:39)
--- NOTE | 2021-05-20 22:43 | PCS.PANDOC ---
PANDEMIC DOCUMENTATION INITIATED: Date: 01/08/2021 Time: 190
[2021-05-20 22:46] LABS: Bedside Glucose 343 mg/dL (70-110)
[2021-05-21] VITALS (17 sets, daily range): BP systolic 84–109; BP diastolic 64–82; PULSE 72–95; RESP 16–22; TEMP 36.2–36.9; O2SAT 90–96
[2021-05-21] MEDS: Insulin Lispro 100 UNIT/ML INSULN.PEN SC ×4 (06:29→21:27)
[2021-05-21 06:35] LABS: Bedside Glucose 230 mg/dL (70-110)
[2021-05-21 07:07] LABS: Absolute Lymphocyte Count 2.43 X10^3/uL (0.83-4.51); Absolute Neutrophil Count 4.5 X10^3/uL (2.0-7.7); Basophil# 0.04 X10^3/uL; Basophil% 0.5 % (0-1); Eosinophil# 0.04 X10^3/uL; Eosinophils% 0.5 % (0-5); Hematocrit 45.5 % (40-54); Hemoglobin 15.6 g/dL (13.0-16.5); Lymphocyte # 2.43 X10^3/ul (0.83-4.51); Lymphocyte % 31.2 % (19-41); Mean Corp Hgb Conc 34.3 g/dL (32-36); Mean Corpuscular Hgb 31.8 pg (27.0-32.0); Mean Corpuscular Volume 92.9 fL (80-94); Mean Platelet Vol. 11.2 fl (6.2-12.0); Monocyte# 0.65 X10^3/uL; Monocyte% 8.4 % (0-10); NRBC Flagged by Analyzer 0 % (0-5); Neutrophil # 4.52 X10^3/uL (2.7-7.7); Neutrophil % 58.1 % (47-70); Platelet Count 132 K/mm3 (150-450); RBC Distribution Width CV 13.3 % (11.6-14.6); RBC Distribution Width SD 43.3 fl (35.1-43.9); White Blood Count 7.8 K/mm3 (4.4-11.0)
[2021-05-21 07:41] LABS: Anion Gap 10 (5-15); BUN 30 mg/dL (7-18); BUN/Creat Ratio 36.3 RATIO (10-20); Calcium,Total 8.5 mg/dL (8.5-10.1); Chloride 100 mmol/L (98-107); Creatinine, Serum 0.83 mg/dL (0.70-1.30); EST Glomerular Filtration Rate 99 mL/min (>60); Est Glom Filt Rate - Afr Amer 120 mL/min (>60); Estimated Creatinine Clearance 108.94 ml/min; Glucose 249 mg/dL (74-106); Potassium 3.7 mmol/L (3.5-5.1); Sodium Level 135 mmol/L (136-145)
[2021-05-21] MEDS: Fenofibrate 145 MG Tablet PO (08:58)
[2021-05-21] MEDS: Furosemide 40 MG Tablet PO (08:58)
[2021-05-21] MEDS: Aspirin 81 MG TAB.CHEW PO (08:59)
[2021-05-21] MEDS: Potassium Chloride Oral Tablet 20 MEQ PO (08:59)
[2021-05-21] MEDS: APIXABAN 5 MG TABLET 10 MG PO (08:59)
[2021-05-21 09:17] LABS: Hemoglobin A1c 11.2 % (3.8-5.6)
--- NOTE | 2021-05-21 10:56 | CASEMGMT ---
ERICH NASH Assessment: Face to Face with pt for initial transition planning/care coordination assessment. RN CM introduced self and role at [facility], pt voices understanding and consents to assessment. Patient appears restful in bed, in no apparent distress. Pt is A/O x4 and answers all questions appropriately at this time. Care providers, pharmacy, and demographics verified/updated. Admitting Dx: Pulmonary embolism, hyperglycemia PCP: None. [facility] Physician Directory provided to patient. Specialists: Moodisspenserw- cardio Preferred Pharmacy: [facility] [place] Insurance: Medicare Prescription Benefit: no LW/HPOA: Patient states he has LW/HPOA. Patient made aware these forms are not on file at [facility] and may be brought in to be scanned into record. LNOK: [id number], Jaskaran René Living Arrangements: Pt lives with sister and [id number] in two story house with 2 steps to enter with railing. Patient reports independent with ADLs prior to hospitalization. Social: former smoker (quit 4 years ago), denies ETOH use Transportation: Pt drives self and denies concerns with transportation. 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 DME/HHC/SNF: Patient denies having any DME in home. Patient does not have glucometer. Denies previous HHC or SNF stays. Pt states no concerns with going home at time of dc. Pt states no further concerns/needs. CM to follow. Advised pt to ask CM if any further question/concerns/needs arise, voices understanding. Pt Goal: home Plan: home
[2021-05-21 12:20] LABS: Bedside Glucose 337 mg/dL (70-110)
[2021-05-21] MEDS: Ondansetron 4 MG/2 ML Vial IV (12:24)
[2021-05-21] MEDS: 0.9% Saline Lock 10 ML Syringe IV (12:24)
--- NOTE | 2021-05-21 12:33 | PN.HOSP_ITS ---
Documented by User: Tristin LLANOS 05/21/21 12:53 Subjective Subjective Patient is a 65-year-old male comfortably resting in bed, alert and orient x3. Patient still feels a little groggy and short of breath, although improved from admission. Denies development of any new symptoms overnight. Does not appear in acute distress Objective Data Objective Data Vital Signs: Vital Signs Temp Pulse Resp BP Pulse Ox 97.8 F 86 18 91/74 91 05/21/21 12:00 05/21/21 12:00 05/21/21 12:00 05/21/21 12:00 05/21/21 12:00 Oxygen Flow Rate (L/min) 4 Oxygen Delivery Method Nasal Cannula Weight: 262 lb 5.601 oz Body Mass Index (BMI) 31.9 Intake & Output: Intake and Output for Last 24 Hours 05/19/21 05/20/21 05/21/21 23:59 23:59 23:59 Intake Total 1000 / 1000 1220 / 1220 Balance 1000 / 1000 1220 / 1220 Lab / Micro Data Result Diagrams: 05/21/21 06:30 05/21/21 06:30 Labs: Laboratory Results - last 24 hr 05/20/21 14:08: WBC 9.8, RBC 5.38, Hgb 17.4 H, Hct 50.7, MCV 94.2 H, MCH 32.3 H, MCHC 34.3, RDW Std Deviation 43.9, RDW Coeff of Bessie 13.2, Plt Count 180, MPV 11.6, Immature Gran % (Auto) 1.700 H, Neut % (Auto) 66.1, Lymph % (Auto) 22.1, Meigs % (Auto) 9.1, Eos % (Auto) 0.2, Baso % (Auto) 0.8, Absolute Neuts (auto) 6.5, Absolute Lymphs (auto) 2.17, Nucleated RBC % 0 05/20/21 14:08: Sodium 131 L, Potassium 4.6, Chloride 95 L, Carbon Dioxide 25.0, Anion Gap 11, BUN 31 H, Creatinine 1.37 H, Estim Creat Clear Calc 66.00, Est GFR (MDRD) Af Amer 67, Est GFR (MDRD) Non-Af 55 L, BUN/Creatinine Ratio 22.6 H, Glucose 516 H*, Calcium 9.3, Troponin I High Sens 36 05/20/21 14:08: B-Natriuretic Peptide 411.7 H 05/20/21 15:21: PT 14.2, INR 1.2 05/20/21 15:21: D-Dimer Quant (PE/DVT) 7.93 H* 05/20/21 19:07: POC Glucose 360 H 05/20/21 21:54: POC Glucose 316 H 05/20/21 22:37: POC Glucose 343 H 05/21/21 06:29: POC Glucose 230 H 05/21/21 06:30: WBC 7.8, RBC 4.90, Hgb 15.6, Hct 45.5, MCV 92.9, MCH 31.8, MCHC 34.3, RDW Std Deviation 43.3, RDW Coeff of Bessie 13.3, Plt Count 132 L, MPV 11.2, Immature Gran % (Auto) 1.300 H, Neut % (Auto) 58.1, Lymph % (Auto) 31.2, Meigs % (Auto) 8.4, Eos % (Auto) 0.5, Baso % (Auto) 0.5, Absolute Neuts (auto) 4.5, Absolute Lymphs (auto) 2.43, Nucleated RBC % 0 05/21/21 06:30: Sodium 135 L, Potassium 3.7, Chloride 100, Carbon Dioxide 25.0, Anion Gap 10, BUN 30 H, Creatinine 0.83, Estim Creat Clear Calc 108.94, Est GFR (MDRD) Af Amer 120, Est GFR (MDRD) Non-Af 99, BUN/Creatinine Ratio 36.3 H, Glucose 249 H, Calcium 8.5 05/21/21 06:30: Hemoglobin A1c 11.2 H 05/21/21 12:13: POC Glucose 337 H Micro: Microbiology 05/20/21 15:05 Nasal Secretion SARS-CoV-2 Antigen (Rapid) - Final Radiography Diagnostic Testing: Radiology Impression Chest X-Ray 05/20/21 15:25 IMPRESSION: No acute cardiopulmonary process. Electronically Signed: Sudheer Roy MD at 16:09 EST Tel , Service support , Chest CTA 05/20/21 18:07 IMPRESSION: Bilaterally pulmonary embolism. No arterial dissection. Left upper lobe infiltrate. Fluid distended esophagus. Electronically Signed: David Maharaj DO at 19:15 EST Tel [phone], Service support , ADDENDUM: 05/20/211946 IMPRESSION: Bilaterally pulmonary embolism. No arterial dissection. Left upper lobe infiltrate. Fluid distended esophagus. N.B. : The above Results were Read Back by David Maharaj DO to Dr Peter MD, and understanding confirmed on 05/20/2021 19:40:37 (ET). Electronically Signed: David Maharaj DO at 19:15 EST Tel [phone], Service support , Rhythm Strip Rhythm Strip: Sinus Rhythm Rate: 88 Ectopy: None Physical Exam Const alert, oriented x3 and no apparent distress HEENT head/scalp atraumatic, moist oral mucous membranes and oropharynx normal Head and Scalp: normocephalic Eyes PERRL, EOMs intact bilaterally and conjunctivae normal Neck no lymphadenopathy, supple and no JVD Resp normal air movement, no retractions and no use of accessory muscles Effort and Inspection: labored Auscultation: diminished lung sounds Cardio regular rate, regular rhythm, no murmurs and no JVD GI normal to inspection, nondistended, normoactive bowel sounds, soft to palpation and non-tender Extremity normal to inspection, full ROM and no clubbing, cyanosis or edema Skin no rashes or lesions noted, no wounds and skin turgor normal Neuro CN's II-XII intact bilaterally Psych affect normal Assessment & Plan Assessment/Plan (1) Bilateral pulmonary embolism: (2) Hypoxia: PLAN: Day 1 Discharge planning: Current plan is for patient to discharge home when medically ready. 1) acute hypoxemic respiratory failure secondary to bilateral PE Patient still requiring 4 L of oxygen and satting at 90%. Chest CTA demonstrated bilateral pulmonary embolism and Left upper lobe infiltrate. Patient is without any significant respiratory symptoms to include productive cough, fever, chills or N/V/D. Plan; continue Eliquis and echocardiogram ordered/pending. 2) Acute hyperglycemia Glucose currently 332, hemoglobin A1c 11.2. Admitting physician noted new onset. Continue Accu-Cheks with sliding scale insulin. 3) HTN Stable, continue amlodipine, atenolol, Lasix and lisinopril. 4) HFrEF Does not appear fluid overloaded, do not believe patient is in acute exacerbation. Echocardiogram from September 2020 demonstrated an EF of 45%, diastolic dysfunction was indeterminate. Continue Lasix, atenolol and lisinopril. 5) hyperlipidemia Continue pravastatin and fenofibrate. DVT prophylaxis -not indicated, on therapeutic Eliquis. Patient seen by Tristin Thomas PA-C, under the supervision of Dr. Portillo. Documented by User: Dr. Michelle Portillo MD 05/21/21 15:03 Objective Data Lab / Micro Data Result Diagrams: 05/21/21 06:30 05/21/21 06:30 Charges/Coding Addendum Addendum: Patient seen by Tristin Thomas PA-C under my supervision Patient seen and examined. He had no active complaints. He remains on 4 L of oxygen. He denies any chest pain or palpitations, dizziness, nausea vomiting. Review of systems otherwise negative. O/E: Const alert, oriented x3 and no apparent distress HEENT head/scalp atraumatic, moist oral mucous membranes and oropharynx normal Head and Scalp: normocephalic Eyes PERRL, EOMs intact bilaterally and conjunctivae normal Neck no lymphadenopathy, supple and no JVD Resp diminished breath sounds bibasally, no wheezes or crackles. On 4L of oxygen by nasal canula Cardio regular rate, regular rhythm, no murmurs and no JVD GI normal to inspection, nondistended, normoactive bowel sounds, soft to palpation and non-tender Extremity normal to inspection, full ROM and no clubbing, cyanosis or edema Skin no rashes or lesions noted, no wounds and skin turgor normal Neuro CN's II-XII intact bilaterally Psych affect normal Patient is being managed for bilateral pulmonary embolism. Patient is on 4 L of oxygen and blood pressure was marginal when he came in at 95/81 and 93/74 when he came in so he meets the criteria for submassive PE. He was started on Eliquis on admission. 2D echo shows a moderately dilated right ventricle with moderate global right ventricular systolic dysfunction and normal left ventricular size with stage I diastolic dysfunction and D-shaped septum in systole and diastole as well as pulmonary artery systolic pressure of 70 mmHg. Patient therefore has severe pulmonary hypertension which I think is as a direct result of the PE. I do think this patient will benefit from use of heparin drip for now due to his submassive PE. Once his saturation starts improving and his blood pressure improves and he is hemodynamically more stable, he can be taken off of the heparin drip and transition to direct oral anticoagulants. We will consult pulmonology as well. Titrate oxygen to maintain saturation above 90%. 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 He had a colonoscopy ~ 10 years ago and says everything was normal, and he wasnt told exactly when to come back. I will speak to pharmacy about transitioning him to heparin drip, with him getting a heparin bolus and then continuing with the drip. I am concerned about his marginal blood pressures and him still requiring 4L of oxygen. Will hold his BP meds- amlodipine, atenolol and lisinopril, and will also hold lasix. Will give a bit of fluids at 125cc/hr for 1L bag. Consult pulmonology. Plan discussed with Dr Webster Visit Charges Inpatient E&M: 13293 Subs Hosp L3
[2021-05-21] MEDS: 0.9% Normal Saline 1,000 ML 125 ML IV (15:41)
[2021-05-21 16:05] LABS: Bedside Glucose 264 mg/dL (70-110)
[2021-05-21] MEDS: Pravastatin 80 MG Tablet PO (21:27)
[2021-05-21 22:35] LABS: Partial Thromboplast Time 34.5 Seconds (24.1-36.2)
[2021-05-21] MEDS: Heparin Injection (Vial) 5,000 UNIT/ML VIAL IV (22:48)
[2021-05-21] MEDS: 0.9% Normal Saline 1,000 ML 999 ML IV (23:59)
[2021-05-22] VITALS (9 sets, daily range): BP systolic 106–121; BP diastolic 58–80; PULSE 82–99; RESP 16–20; TEMP 35.9–36.8; O2SAT 92–97
[2021-05-22 03:06] LABS: Bedside Glucose 266 mg/dL (70-110)
[2021-05-22 05:48] LABS: Partial Thromboplast Time 37.4 Seconds (24.1-36.2)
[2021-05-22] MEDS: Heparin Injection (Vial) 5,000 UNIT/ML VIAL IV ×2 (06:16→13:28)
[2021-05-22 06:34] LABS: Hematocrit 44.5 % (40-54); Mean Corp Hgb Conc 33.7 g/dL (32-36); Mean Corpuscular Hgb 31.8 pg (27.0-32.0); Mean Corpuscular Volume 94.5 fL (80-94); Mean Platelet Vol. 11.2 fl (6.2-12.0); RBC Distribution Width CV 13.4 % (11.6-14.6); RBC Distribution Width SD 45.2 fl (35.1-43.9); Red Blood Count 4.71 M/mm3 (4.6-6.2); White Blood Count 7.8 K/mm3 (4.4-11.0)
--- NOTE | 2021-05-22 07:39 | EX.PCM.CONCC ---
Assessment & Plan Assessment/Plan (1) Bilateral pulmonary embolism: PLAN: RECOMMENDATIONS: 1. Wean supplemental oxygen to maintain saturations at or above 90%. 2. Continue heparin infusion. 3. Await results of Covid PCR testing. 4. If Covid testing is negative, start Levaquin with plans to complete a 7-day treatment course. 5. Encourage incentive spirometer use and mobilize patient as tolerated. IMPRESSIONS: 1. Acute hypoxemic respiratory failure The patient initially presented to the hospital with dyspnea and was found to have significant bilateral pulmonary emboli with evidence of RV dysfunction consistent with submassive PE. He remains on systemic anticoagulation. The patient's hemodynamics were a bit tenuous at first, but responded to IV fluid resuscitation. On chest imaging, he did have a vague groundglass opacity in the left upper lobe which could be an early pneumonia. For now, we will plan to continue the patient on a continuous heparin infusion. COVID-19 PCR is currently pending. If his Covid testing is negative, I would recommend that we place him on CAP antimicrobials, such as Levaquin, to complete a 7-day treatment course. Continue to wean supplemental oxygen to maintain saturations at or above 90%. Encourage incentive spirometer use and mobilize patient as tolerated. 2. Obesity/hypertension/diabetes mellitus Complicates care, management, recovery and prognosis. Continue home medications as indicated. This note was generated with [employer] dictation software. It may contain incorrect words, spelling, and punctuation that were not noted in checking the note before signing. HPI Consult Data Date of Consult: 05/22/21 HPI Narrative Reason for Consultation: Submassive PE HPI Narrative: The patient is a 65-year-old male, with a history as outlined below, who presented to the emergency department via EMS on May 20 with shortness of breath. The patient has a known history of known coronary artery disease associated cardiomyopathy and is status post ICD placement. On presentation to the emergency department, the patient was noted to be afebrile and hemodynamically stable. The patient was hypoxemic, saturating 88% on room air. D-dimer was elevated at 7.9. Initial creatinine was elevated at 1.37. BNP was elevated 411. Troponin was unremarkable. CTA chest was positive for bilateral pulmonary emboli. Follow-up echocardiogram completed on May 21 demonstrated stage I diastolic dysfunction with moderate global RV systolic dysfunction and a pulmonary artery systolic pressure estimated to be 70 mmHg. The patient was initially admitted to the hospital and placed on Eliquis. However, in light of tenuous hemodynamics noted throughout the day on May 21, he was transitioned to a heparin infusion. The patient denies a history of venous thromboembolic disease. 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 [facility] Medical History Anxiety Arthritis Cardiomyopathy, dilated Chronic systolic congestive heart failure Depression Essential hypertension NINO (obstructive sleep apnea) Peripheral vascular disease Pure hypercholesterolemia Home Medications aspirin 325 mg tablet 325 mg PO QDAY tab 09/29/17 [History Last Taken Unknown] HANDICAP PLACARD #1 ea 03/09/20 [Rx Last Taken Unknown] lisinopril 20 mg tablet 20 mg PO BID #180 tab 09/11/20 [Rx Last Taken Unknown] furosemide 40 mg tablet 40 mg PO QDAY #90 tab 09/19/20 [Rx Last Taken Unknown] potassium chloride 20 mEq tablet,extended release 20 meq PO QDAY #90 tab 09/25/20 [Rx Last Taken Unknown] amlodipine 10 mg tablet 10 mg PO DAILY #90 tab 10/04/20 [Rx Last Taken Unknown] atenolol 50 mg tablet 50 mg PO BID #180 tab 10/04/20 [Rx Last Taken Unknown] pravastatin 80 mg tablet 80 mg PO QHS #90 tab 10/25/20 [Rx Last Taken Unknown] fenofibrate micronized 130 mg capsule 130 mg PO QDAY #30 cap 04/09/21 [Rx Last Taken Unknown] Allergy/AdvReac Type Severity Reaction Status Date / Time No Known Allergies Allergy Verified 10/04/20 10:50 Family History Father Heart disease CVA (cerebral vascular accident) Mother Hypertension Surgical History History of tonsillectomy Presence of cardiac defibrillator (11/08/10) Social History Smoking Status: Former smoker Smokeless tobacco user: other alcohol intake: current alcohol intake frequency: a few times a month substance use type: marijuana caffeine: Yes Type: carbonated beverages Number of servings: 2 and coffee Number of servings: 2 ROS Constitutional Constitutional: Denies chills, fatigue or fever(s) Eyes Eyes: Denies blurry vision or change in vision ENT HEENT: Denies dizziness, dysphagia or loss taste/smell Cardiovascular Cardiovascular: Reports dyspnea; Denies chest pain Respiratory/Chest Respiratory/Chest: Reports dyspnea; Denies chest tightness Gastrointestinal Gastrointestinal: Denies abdominal pain, diarrhea, nausea or vomiting Genitourinary Genitourinary: Denies difficulty urinating Musculoskeletal Musculoskeletal: Denies arthralgias, back pain or joint pain Integumentary Integumentary: Denies lesions, rash or skin ulcer Neurologic Neurologic: Denies abnormal gait or abnormal speech Psychiatric Psychiatric: Denies anxiety Endocrine Endocrinology: Denies fatigue or polydipsia Hematologic/Lymphatic Hematologic/Lymphatic: Denies easy bleeding or easy bruising Physical Exam Const alert, oriented x3 and no apparent distress General Appearance: cooperative Nutritional Appearance: obese HEENT normocephalic, head/scalp atraumatic and moist oral mucous membranes Eyes PERRL, EOMs intact bilaterally and conjunctivae normal Neck supple General: trachea midline Chest inspection of chest normal Resp Auscultation: diminished lung sounds Cardio regular rate and regular rhythm GI normal to inspection, nondistended, normoactive bowel sounds Extremity no clubbing, cyanosis or edema Skin no rashes or lesions noted Neuro CN's II-XII intact bilaterally, moves all extremities and no focal motor deficits Psych cooperative and affect normal Lab / Micro Data Result Diagrams: 05/22/21 05:30 05/22/21 05:30 Labs: Laboratory Results - last 24 hr 05/21/21 06:30: Sodium 135 L, Potassium 3.7, Chloride 100, Carbon Dioxide 25.0, Anion Gap 10, BUN 30 H, Creatinine 0.83, Estim Creat Clear Calc 108.94, Est GFR (MDRD) Af Amer 120, Est GFR (MDRD) Non-Af 99, BUN/Creatinine Ratio 36.3 H, Glucose 249 H, Calcium 8.5 05/21/21 06:30: Hemoglobin A1c 11.2 H 05/21/21 12:13: POC Glucose 337 H 05/21/21 15:57: POC Glucose 264 H 05/21/21 21:25: POC Glucose 266 H 05/21/21 22:06: APTT 34.5 05/22/21 05:30: APTT 37.4 H 05/22/21 05:30: WBC 7.8, RBC 4.71, Hgb 15.0, Hct 44.5, MCV 94.5 H, MCH 31.8, MCHC 33.7, RDW Std Deviation 45.2 H, RDW Coeff of Bessie 13.4, Plt Count 128 L, MPV 11.2 Rhythm Strip Rhythm Strip: Sinus Rhythm Rate: 88 Ectopy: None Radiology Impression Echocardiogram 05/20/21 22:11 Interpretation Summary Moderately dilated right ventricle. Moderate global right ventricular systolic dysfunction. Normal LV size. Left ventricular systolic function is lower limits of normal. Stage 1 diastolic dysfunction. D shaped septum in systole and diastole. Pulmonary artery systolic pressure is 70 mmHg. Severe pulmonary hypertension. Ordering Physician: Se Grijalva Referring Physician: MAR PCP Performed By: Jossy Patton, KARRIE, RVT Charges/Coding Visit Charges Inpatient E&M: 92586 Init Hosp L3
[2021-05-22 08:13] LABS: Anion Gap 9 (5-15); BUN 33 mg/dL (7-18); BUN/Creat Ratio 34.1 RATIO (10-20); Calcium,Total 8.9 mg/dL (8.5-10.1); Chloride 99 mmol/L (98-107); Creatinine, Serum 0.97 mg/dL (0.70-1.30); EST Glomerular Filtration Rate 83 mL/min (>60); Est Glom Filt Rate - Afr Amer 100 mL/min (>60); Estimated Creatinine Clearance 93.21 ml/min; Glucose 228 mg/dL (74-106); Potassium 4.3 mmol/L (3.5-5.1); Sodium Level 132 mmol/L (136-145)
[2021-05-22] MEDS: Fenofibrate 145 MG Tablet PO (08:49)
[2021-05-22] MEDS: Potassium Chloride Oral Tablet 20 MEQ PO (08:49)
[2021-05-22] MEDS: Insulin Lispro 100 UNIT/ML INSULN.PEN SC ×4 (08:49→20:31)
[2021-05-22 08:55] LABS: Bedside Glucose 220 mg/dL (70-110)
--- NOTE | 2021-05-22 11:06 | PN.HOSP_ITS ---
Subjective Subjective Patient seen and examined. He says he had a rough night. His shortness of breath worsened, and he says he is on 10L. His blood pressure is also much better. He remains on heparin drip. Objective Data Objective Data Vital Signs: Vital Signs Temp Pulse Resp BP Pulse Ox 97.4 F L 89 20 H 106/79 94 05/22/21 08:35 05/22/21 08:35 05/22/21 08:35 05/22/21 08:35 05/22/21 08:35 Oxygen Flow Rate (L/min) 10 Oxygen Delivery Method High Flow Weight: 262 lb 5.601 oz Body Mass Index (BMI) 31.9 Intake & Output: Intake and Output for Last 24 Hours 05/20/21 05/21/21 05/22/21 23:59 23:59 23:59 Intake Total 1000 / 1000 2909.5 / 2909.5 1091.6 / 1091.6 Balance 1000 / 1000 2909.5 / 2909.5 1091.6 / 1091.6 Lab / Micro Data Result Diagrams: 05/22/21 05:30 05/22/21 05:30 Labs: Laboratory Results - last 24 hr 05/21/21 12:13: POC Glucose 337 H 05/21/21 15:57: POC Glucose 264 H 05/21/21 21:25: POC Glucose 266 H 05/21/21 22:06: APTT 34.5 05/22/21 05:30: APTT 37.4 H 05/22/21 05:30: WBC 7.8, RBC 4.71, Hgb 15.0, Hct 44.5, MCV 94.5 H, MCH 31.8, MCHC 33.7, RDW Std Deviation 45.2 H, RDW Coeff of Bessie 13.4, Plt Count 128 L, MPV 11.2 05/22/21 05:30: Sodium 132 L, Potassium 4.3, Chloride 99, Carbon Dioxide 24.0, Anion Gap 9, BUN 33 H, Creatinine 0.97, Estim Creat Clear Calc 93.21, Est GFR (MDRD) Af Amer 100, Est GFR (MDRD) Non-Af 83, BUN/Creatinine Ratio 34.1 H, Glucose 228 H, Calcium 8.9 05/22/21 08:39: POC Glucose 220 H Micro: Microbiology 05/20/21 15:05 Nasal Secretion SARS-CoV-2 Antigen (Rapid) - Final Radiography Diagnostic Testing: Radiology Impression Echocardiogram 05/20/21 22:11 Interpretation Summary Moderately dilated right ventricle. Moderate global right ventricular systolic dysfunction. Normal LV size. Left ventricular systolic function is lower limits of normal. Stage 1 diastolic dysfunction. D shaped septum in systole and diastole. Pulmonary artery systolic pressure is 70 mmHg. Severe pulmonary hypertension. Ordering Physician: Se Grijalva Referring Physician: MAR PCP Performed By: Jossy Patton, KARRIE, RVT Rhythm Strip Rhythm Strip: Sinus Rhythm Rate: 88 Ectopy: None Physical Exam Const alert, oriented x3 and no apparent distress Exam Limitations: no limitations HEENT head/scalp atraumatic and moist oral mucous membranes Head and Scalp: normocephalic Eyes PERRL, EOMs intact bilaterally and conjunctivae normal Neck no lymphadenopathy Resp Resp Narrative: diminished breath sounds bibasally, no wheezes or crackles. On 10L of oxygen by nasal canula. Cardio regular rate, regular rhythm, S1 normal heart sound, S2 normal heart sound and no murmurs GI normal to inspection, nondistended, normoactive bowel sounds, soft to palpation, non-tender, non-distended and hepatosplenomegaly Extremity normal to inspection, full ROM and no clubbing, cyanosis or edema Peripheral Pulses: Yes pulses 2+ throughout Skin no rashes or lesions noted Neuro oriented x3, CN's II-XII intact bilaterally and moves all extremities Sensorium / Orientation: awake and alert Psych affect normal Assessment & Plan Assessment/Plan (1) Diabetes mellitus, new onset: (2) Bilateral pulmonary embolism: (3) Acute and chronic respiratory failure with hypoxia: PLAN: #Acute hypoxic respiratory failure due to submassive PE * patient up to 10L of oxygen today; was on 4L yesterday. * eliquis was discontinued, and he is now on heparin drip. * titrate oxygen to maintain sats >90% * breathing treatment with bronchodilators. * #Bilateral submassive PE * management as above. * pulmonology on board. * #Type 2 diabetes mellitus * newly diagnosed * A1C was 11.2. * on lantus 10 units qhs. ISS. Accuchecks ACHS * on metformin 500mg bid * #Hypertension: BP meds on hold due to patient's low BP yesterday,. Will continue to hold for now DVT prophylaxis: not indicated as patient is on heparin drip for PE. Charges/Coding Visit Charges Inpatient E&M: 25722 [facility] Hosp L3
[2021-05-22 11:31] LABS: Bedside Glucose 289 mg/dL (70-110)
[2021-05-22 12:22] LABS: Partial Thromboplast Time 38.8 Seconds (24.1-36.2)
[2021-05-22 14:32] LABS: Absolute Lymphocyte Count 2.56 X10^3/uL (0.83-4.51); Absolute Neutrophil Count 4.6 X10^3/uL (2.0-7.7); Basophil# 0.04 X10^3/uL; Basophil% 0.5 % (0-1); Eosinophil# 0.03 X10^3/uL; Eosinophils% 0.4 % (0-5); Lymphocyte # 2.56 X10^3/ul (0.83-4.51); Lymphocyte % 31.9 % (19-41); Monocyte# 0.69 X10^3/uL; Monocyte% 8.6 % (0-10); NRBC Flagged by Analyzer 0 % (0-5); Neutrophil # 4.61 X10^3/uL (2.7-7.7); Neutrophil % 57.4 % (47-70); Platelet Count 124 K/mm3 (150-450)
[2021-05-22 16:21] LABS: Bedside Glucose 299 mg/dL (70-110)
[2021-05-22] MEDS: levoFLOXacin IV 750 MG/150 ML BAG 100 MG IV (16:38)
[2021-05-22] MEDS: 0.9% Saline Lock 10 ML Syringe IV (16:42)
[2021-05-22 20:08] LABS: Partial Thromboplast Time 44.8 Seconds (24.1-36.2)
[2021-05-22] MEDS: Pravastatin 80 MG Tablet PO (20:31)
[2021-05-22 21:26] LABS: Bedside Glucose 236 mg/dL (70-110)
[2021-05-23] VITALS (9 sets, daily range): BP systolic 103–137; BP diastolic 78–107; PULSE 89–105; RESP 14–20; TEMP 36.4–36.8; O2SAT 93–95
[2021-05-23 02:57] LABS: Absolute Lymphocyte Count 2.54 X10^3/uL (0.83-4.51); Absolute Neutrophil Count 3.3 X10^3/uL (2.0-7.7); Basophil# 0.03 X10^3/uL; Basophil% 0.4 % (0-1); Eosinophil# 0.07 X10^3/uL; Hematocrit 41.8 % (40-54); Hemoglobin 14.6 g/dL (13.0-16.5); Lymphocyte # 2.54 X10^3/ul (0.83-4.51); Lymphocyte % 37.9 % (19-41); Mean Corp Hgb Conc 34.9 g/dL (32-36); Mean Corpuscular Hgb 32.2 pg (27.0-32.0); Mean Corpuscular Volume 92.3 fL (80-94); Mean Platelet Vol. 11.1 fl (6.2-12.0); Monocyte# 0.64 X10^3/uL; Monocyte% 9.6 % (0-10); NRBC Flagged by Analyzer 0 % (0-5); Neutrophil # 3.34 X10^3/uL (2.7-7.7); Neutrophil % 49.9 % (47-70); Platelet Count 104 K/mm3 (150-450); RBC Distribution Width CV 13.1 % (11.6-14.6); RBC Distribution Width SD 43.4 fl (35.1-43.9); Red Blood Count 4.53 M/mm3 (4.6-6.2); White Blood Count 6.7 K/mm3 (4.4-11.0)
[2021-05-23 03:07] LABS: Partial Thromboplast Time 47.8 Seconds (24.1-36.2)
[2021-05-23 03:14] LABS: Anion Gap 8 (5-15); BUN 24 mg/dL (7-18); BUN/Creat Ratio 32.7 RATIO (10-20); Calcium,Total 8.5 mg/dL (8.5-10.1); Chloride 99 mmol/L (98-107); Creatinine, Serum 0.73 mg/dL (0.70-1.30); EST Glomerular Filtration Rate 114 mL/min (>60); Est Glom Filt Rate - Afr Amer 138 mL/min (>60); Estimated Creatinine Clearance 123.86 ml/min; Glucose 158 mg/dL (74-106); Potassium 4.1 mmol/L (3.5-5.1); Sodium Level 132 mmol/L (136-145)
[2021-05-23] MEDS: Insulin Lispro 100 UNIT/ML INSULN.PEN SC ×4 (06:34→21:11)
[2021-05-23 06:41] LABS: Bedside Glucose 186 mg/dL (70-110)
[2021-05-23] MEDS: Fenofibrate 145 MG Tablet PO (09:13)
[2021-05-23] MEDS: metFORMIN HCl 500 MG Tablet PO ×2 (09:13→16:03)
[2021-05-23] MEDS: Potassium Chloride Oral Tablet 20 MEQ PO (09:13)
[2021-05-23 09:32] LABS: Partial Thromboplast Time 45.3 Seconds (24.1-36.2)
[2021-05-23] MEDS: levoFLOXacin IV 750 MG/150 ML BAG 100 MG IV (10:19)
--- NOTE | 2021-05-23 10:53 | PN.HOSP_ITS ---
Subjective Subjective Patient seen and examined. He has no active complaints today. He is down to 6l of oxygen. Review of systems is otherwise negative. Objective Data Objective Data Vital Signs: Vital Signs Temp Pulse Resp BP Pulse Ox 97.9 F 103 H 20 H 137/91 H 94 05/23/21 09:10 05/23/21 09:10 05/23/21 09:10 05/23/21 09:10 05/23/21 09:10 Oxygen Flow Rate (L/min) 6 Oxygen Delivery Method Nasal Cannula Weight: 262 lb 5.601 oz Body Mass Index (BMI) 31.9 Intake & Output: Intake and Output for Last 24 Hours 05/21/21 05/22/21 05/23/21 23:59 23:59 23:59 Intake Total 2909.5 / 2909.5 2874.77 / 2874.77 244.83 / 244.83 Output Total 850 / 850 475 / 475 Balance 2909.5 / 2909.5 2024.77 / 2024.77 -230.17 / -230.17 Lab / Micro Data Result Diagrams: 05/23/21 02:35 05/23/21 02:35 Labs: Laboratory Results - last 24 hr 05/22/21 05:30: Plt Count 124 L, Immature Gran % (Auto) 1.200 H, Neut % (Auto) 57.4, Lymph % (Auto) 31.9, [place] % (Auto) 8.6, Eos % (Auto) 0.4, Baso % (Auto) 0.5, Absolute Neuts (auto) 4.6, Absolute Lymphs (auto) 2.56, Nucleated RBC % 0 05/22/21 11:00: COVID-19 (KA[facility]EN) Not Detected 05/22/21 11:17: POC Glucose 289 H 05/22/21 12:00: APTT 38.8 H 05/22/21 16:14: POC Glucose 299 H 05/22/21 19:35: APTT 44.8 H 05/22/21 20:29: POC Glucose 236 H 05/23/21 02:35: WBC 6.7, RBC 4.53 L, Hgb 14.6, Hct 41.8, MCV 92.3, MCH 32.2 H, MCHC 34.9, RDW Std Deviation 43.4, RDW Coeff of Bessie 13.1, Plt Count 104 L, MPV 11.1, Immature Gran % (Auto) 1.200 H, Neut % (Auto) 49.9, Lymph % (Auto) 37.9, [place] % (Auto) 9.6, Eos % (Auto) 1.0, Baso % (Auto) 0.4, Absolute Neuts (auto) 3.3, Absolute Lymphs (auto) 2.54, Nucleated RBC % 0 05/23/21 02:35: Sodium 132 L, Potassium 4.1, Chloride 99, Carbon Dioxide 25.0, Anion Gap 8, BUN 24 H, Creatinine 0.73, Estim Creat Clear Calc 123.86, Est GFR (MDRD) Af Amer 138, Est GFR (MDRD) Non-Af 114, BUN/Creatinine Ratio 32.7 H, Glucose 158 H, Calcium 8.5 05/23/21 02:35: APTT 47.8 H 05/23/21 06:33: POC Glucose 186 H 05/23/21 09:05: APTT 45.3 H Micro: Microbiology 05/20/21 15:05 Nasal Secretion SARS-CoV-2 Antigen (Rapid) - Final Rhythm Strip Rhythm Strip: Sinus Rhythm Rate: 88 Ectopy: None Physical Exam Const alert, oriented x3 and no apparent distress Exam Limitations: no limitations HEENT head/scalp atraumatic and moist oral mucous membranes Head and Scalp: normocephalic Eyes PERRL, EOMs intact bilaterally and conjunctivae normal Neck no lymphadenopathy Resp Resp Narrative: diminished breath sounds bibasally, no wheezes or crackles. On 6 L of oxygen by nasal canula. Cardio regular rate, regular rhythm, S1 normal heart sound, S2 normal heart sound and no murmurs GI normal to inspection, nondistended, normoactive bowel sounds, soft to palpation, non-tender, non-distended and hepatosplenomegaly Extremity normal to inspection, full ROM and no clubbing, cyanosis or edema Peripheral Pulses: Yes pulses 2+ throughout Skin no rashes or lesions noted Neuro oriented x3, CN's II-XII intact bilaterally and moves all extremities Sensorium / Orientation: awake and alert Psych affect normal Assessment & Plan Assessment/Plan (1) Diabetes mellitus, new onset: (2) Bilateral pulmonary embolism: (3) Acute and chronic respiratory failure with hypoxia: PLAN: #Acute hypoxic respiratory failure due to submassive PE * patient is down to 6 L of oxygen today, from 10L yesterday * 2D echo showed right ventricular strain and markedly elevated PA pressure of 70mmHg. * on heparin drip. Pulmonology on board * started on IV levaquin yesterday due to concerns about superimposed pneumonia due to his * titrate oxygen to maintain sats >90% * breathing treatment with bronchodilators. * #Bilateral submassive PE * management as above. * pulmonology on board. * #Severe pulmonary hypertension * PA pressure per echo was 70mmHg, which is likely secondary to the bilateral PE * will need follow up 2D echo to assess for improvement down the line * #Type 2 diabetes mellitus * newly diagnosed * A1C was 11.2. * on lantus 10 units qhs. ISS. Accuchecks ACHS * on metformin 500mg bid * #Hypertension: BP meds on hold due to patient's low BP on admission. BP has now improved. Will continue to hold for now DVT prophylaxis: not indicated as patient is on heparin drip for PE. Charges/Coding Visit Charges Inpatient E&M: 77858 Subs Hosp L3
[2021-05-23 11:21] LABS: Bedside Glucose 352 mg/dL (70-110)
--- NOTE | 2021-05-23 14:01 | PCM.PN.INT ---
Assessment & Plan Assessment/Plan (1) Bilateral pulmonary embolism: PLAN: RECOMMENDATIONS: 1. Wean supplemental oxygen to maintain saturations at or above 90%. 2. Continue heparin infusion. Transition to either Eliquis or Xarelto at discharge. 3. Continue Levaquin for 7 days of therapy. 4. Encourage incentive spirometer use and mobilize patient as tolerated. 5. Recommend follow-up echocardiogram in 2 to 3 months. 6. The patient can be discharged home once able to maintain appropriate saturations on 6 L/min or less of oxygen. 7. Please have the patient follow-up in the pulmonary medicine clinic after discharge. 8. Will sign off at this time. Please call with any additional questions. IMPRESSIONS: 1. Acute hypoxemic respiratory failure The patient initially presented to the hospital with dyspnea and was found to have significant bilateral pulmonary emboli with evidence of RV dysfunction consistent with submassive PE. He remains on systemic anticoagulation. The patient's hemodynamics were a bit tenuous at first, but responded to IV fluid resuscitation. On chest imaging, he did have a vague groundglass opacity in the left upper lobe which could be an early pneumonia. COVID-19 PCR was negative. Accordingly, the patient will be placed on Levaquin to complete 7 days of therapy. In addition, he will be continued on a heparin infusion until he is stable for discharge home, at which time, he can be transitioned to either Xarelto or Eliquis. The patient can be discharged home with outpatient pulmonary follow-up once he is able to ambulate on 6 L/min or less of supplemental oxygen. Continue to encourage incentive spirometer use and mobilize patient as tolerated. Please arrange for outpatient pulmonary follow-up after discharge. 2. Obesity/hypertension/diabetes mellitus Complicates care, management, recovery and prognosis. Continue home medications as indicated. This note was generated with [employer] dictation software. It may contain incorrect words, spelling, and punctuation that were not noted in checking the note before signing. Subjective Subjective The patient was seen and examined at the bedside this morning. Events from the last 24 hours have been reviewed. The patient is currently afebrile, hemodynamically stable and maintaining appropriate oxygen saturations on 6 L/min via nasal cannula. The patient remains on a continuous heparin infusion. He denies any overt dyspnea today. Objective Data Objective Data The patient's most recent lab work, culture data and imaging studies have all been personally reviewed. Surface echocardiogram demonstrated evidence of stage I diastolic dysfunction with a moderately dilated RV and moderate global RV systolic dysfunction. Pulmonary artery systolic pressure was estimated to be 70 mmHg. Vital Signs: Vital Signs Temp Pulse Resp BP Pulse Ox 97.9 F 103 H 20 H 137/91 H 94 05/23/21 09:10 05/23/21 09:10 05/23/21 09:10 05/23/21 09:10 05/23/21 09:10 Oxygen Flow Rate (L/min) 6 Oxygen Delivery Method Nasal Cannula Weight: 119 kg Body Mass Index (BMI) 31.9 Intake & Output: Intake and Output for Last 24 Hours 05/21/21 05/22/21 05/23/21 23:59 23:59 23:59 Intake Total 2909.5 / 2909.5 2874.77 / 2874.77 874.83 / 874.83 Output Total 850 / 850 475 / 475 Balance 2909.5 / 2909.5 2024.77 / 2024.77 399.83 / 399.83 Lab / Micro Data Attestation: I reviewed the patient's lab results. Result Diagrams: 05/23/21 02:35 05/23/21 02:35 Labs: Laboratory Results - last 24 hr 05/22/21 05:30: Plt Count 124 L, Immature Gran % (Auto) 1.200 H, Neut % (Auto) 57.4, Lymph % (Auto) 31.9, [place] % (Auto) 8.6, Eos % (Auto) 0.4, Baso % (Auto) 0.5, Absolute Neuts (auto) 4.6, Absolute Lymphs (auto) 2.56, Nucleated RBC % 0 05/22/21 11:00: COVID-19 ([facility]) Not Detected 05/22/21 16:14: POC Glucose 299 H 05/22/21 19:35: APTT 44.8 H 05/22/21 20:29: POC Glucose 236 H 05/23/21 02:35: WBC 6.7, RBC 4.53 L, Hgb 14.6, Hct 41.8, MCV 92.3, MCH 32.2 H, MCHC 34.9, RDW Std Deviation 43.4, RDW Coeff of Bessie 13.1, Plt Count 104 L, MPV 11.1, Immature Gran % (Auto) 1.200 H, Neut % (Auto) 49.9, Lymph % (Auto) 37.9, [place] % (Auto) 9.6, Eos % (Auto) 1.0, Baso % (Auto) 0.4, Absolute Neuts (auto) 3.3, Absolute Lymphs (auto) 2.54, Nucleated RBC % 0 05/23/21 02:35: Sodium 132 L, Potassium 4.1, Chloride 99, Carbon Dioxide 25.0, Anion Gap 8, BUN 24 H, Creatinine 0.73, Estim Creat Clear Calc 123.86, Est GFR (MDRD) Af Amer 138, Est GFR (MDRD) Non-Af 114, BUN/Creatinine Ratio 32.7 H, Glucose 158 H, Calcium 8.5 05/23/21 02:35: APTT 47.8 H 05/23/21 06:33: POC Glucose 186 H 05/23/21 09:05: APTT 45.3 H 05/23/21 11:12: POC Glucose 352 H Micro: Microbiology 05/20/21 15:05 Nasal Secretion SARS-CoV-2 Antigen (Rapid) - Final Rhythm Strip Rhythm Strip: Sinus Rhythm Rate: 88 Ectopy: None Physical Exam Const alert, oriented x3 and no apparent distress General Appearance: cooperative Nutritional Appearance: obese HEENT normocephalic, head/scalp atraumatic and moist oral mucous membranes Eyes PERRL, EOMs intact bilaterally and conjunctivae normal Neck supple General: trachea midline Chest inspection of chest normal Resp Auscultation: diminished lung sounds Cardio regular rate and regular rhythm GI normal to inspection, nondistended, normoactive bowel sounds Extremity no clubbing, cyanosis or edema Skin no rashes or lesions noted Neuro CN's II-XII intact bilaterally, moves all extremities and no focal motor deficits Psych cooperative and affect normal Charges/Coding Visit Charges Inpatient E&M: 98072 Subs Hosp L2
[2021-05-23 16:21] LABS: Bedside Glucose 165 mg/dL (70-110)
[2021-05-23 16:44] LABS: Partial Thromboplast Time 50.4 Seconds (24.1-36.2)
[2021-05-23] MEDS: Pravastatin 80 MG Tablet PO (21:11)
[2021-05-23 21:20] LABS: Bedside Glucose 184 mg/dL (70-110)
[2021-05-23 23:15] LABS: Partial Thromboplast Time 51.7 Seconds (24.1-36.2)
[2021-05-24] VITALS (12 sets, daily range): BP systolic 124–135; BP diastolic 84–94; PULSE 89–107; RESP 16–20; TEMP 36.6–37.2; O2SAT 91–96
[2021-05-24 05:42] LABS: Absolute Lymphocyte Count 1.92 X10^3/uL (0.83-4.51); Absolute Neutrophil Count 2.8 X10^3/uL (2.0-7.7); Basophil# 0.02 X10^3/uL; Basophil% 0.4 % (0-1); Eosinophil# 0.05 X10^3/uL; Eosinophils% 0.9 % (0-5); Hematocrit 41.3 % (40-54); Hemoglobin 14.3 g/dL (13.0-16.5); Lymphocyte # 1.92 X10^3/ul (0.83-4.51); Lymphocyte % 35.8 % (19-41); Mean Corp Hgb Conc 34.6 g/dL (32-36); Mean Corpuscular Hgb 32.1 pg (27.0-32.0); Mean Corpuscular Volume 92.8 fL (80-94); Mean Platelet Vol. 11.1 fl (6.2-12.0); Monocyte# 0.52 X10^3/uL; Monocyte% 9.7 % (0-10); NRBC Flagged by Analyzer 0 % (0-5); Neutrophil # 2.79 X10^3/uL (2.7-7.7); Neutrophil % 52.1 % (47-70); POSITIVE COUNT YES; Platelet Count 94 K/mm3 (150-450); RBC Distribution Width SD 43.8 fl (35.1-43.9); Red Blood Count 4.45 M/mm3 (4.6-6.2); White Blood Count 5.4 K/mm3 (4.4-11.0)
[2021-05-24 05:47] LABS: Partial Thromboplast Time 55.3 Seconds (24.1-36.2)
[2021-05-24 06:15] LABS: Anion Gap 7 (5-15); BUN 14 mg/dL (7-18); BUN/Creat Ratio 18.3 RATIO (10-20); Calcium,Total 8.4 mg/dL (8.5-10.1); Chloride 98 mmol/L (98-107); Creatinine, Serum 0.77 mg/dL (0.70-1.30); EST Glomerular Filtration Rate 108 mL/min (>60); Est Glom Filt Rate - Afr Amer 131 mL/min (>60); Estimated Creatinine Clearance 117.42 ml/min; Glucose 157 mg/dL (74-106); Sodium Level 132 mmol/L (136-145)
[2021-05-24 06:26] LABS: Bedside Glucose 142 mg/dL (70-110)
[2021-05-24] MEDS: levoFLOXacin IV 750 MG/150 ML BAG 100 MG IV (09:32)
[2021-05-24] MEDS: metFORMIN HCl 500 MG Tablet PO ×2 (09:32→16:40)
[2021-05-24] MEDS: Potassium Chloride Oral Tablet 20 MEQ PO (09:32)
[2021-05-24] MEDS: Fenofibrate 145 MG Tablet PO (09:32)
[2021-05-24] MEDS: Insulin Lispro 100 UNIT/ML INSULN.PEN SC ×3 (11:26→21:08)
[2021-05-24 11:35] LABS: Bedside Glucose 210 mg/dL (70-110)
[2021-05-24 11:56] LABS: Partial Thromboplast Time 55.6 Seconds (24.1-36.2)
--- NOTE | 2021-05-24 13:49 | PN.HOSP_ITS ---
Subjective Subjective Patient seen and examined. He has no complaints and feels well. Review of systems otherwise negative. He is down to 5 L of oxygen today. Objective Data Objective Data Vital Signs: Vital Signs Temp Pulse Resp BP Pulse Ox 98.6 F 98 16 135/89 H 95 05/24/21 09:15 05/24/21 09:15 05/24/21 09:15 05/24/21 09:15 05/24/21 09:57 Oxygen Flow Rate (L/min) 4 Oxygen Delivery Method Nasal Cannula Weight: 262 lb 5.601 oz Body Mass Index (BMI) 31.9 Intake & Output: Intake and Output for Last 24 Hours 05/22/21 05/23/21 05/24/21 23:59 23:59 23:59 Intake Total 2874.77 / 2874.77 1551.38 / 1551.38 468.75 / 468.75 Output Total 850 / 850 475 / 475 600 / 600 Balance 2024.77 / 2024.77 1076.38 / 1076.38 -131.25 / -131.25 Lab / Micro Data Result Diagrams: 05/24/21 05:14 05/24/21 05:14 Labs: Laboratory Results - last 24 hr 05/23/21 16:02: POC Glucose 165 H 05/23/21 16:16: APTT 50.4 H 05/23/21 21:10: POC Glucose 184 H 05/23/21 22:53: APTT 51.7 H 05/24/21 05:14: WBC 5.4, RBC 4.45 L, Hgb 14.3, Hct 41.3, MCV 92.8, MCH 32.1 H, MCHC 34.6, RDW Std Deviation 43.8, RDW Coeff of Bessie 13.0, Plt Count 94 L, MPV 11.1, Immature Gran % (Auto) 1.100 H, Neut % (Auto) 52.1, Lymph % (Auto) 35.8, [place] % (Auto) 9.7, Eos % (Auto) 0.9, Baso % (Auto) 0.4, Absolute Neuts (auto) 2.8, Absolute Lymphs (auto) 1.92, Nucleated RBC % 0 05/24/21 05:14: Sodium 132 L, Potassium 4.0, Chloride 98, Carbon Dioxide 27.0, Anion Gap 7, BUN 14, Creatinine 0.77, Estim Creat Clear Calc 117.42, Est GFR (MDRD) Af Amer 131, Est GFR (MDRD) Non-Af 108, BUN/Creatinine Ratio 18.3, Glucose 157 H, Calcium 8.4 L 05/24/21 05:14: APTT 55.3 H 05/24/21 06:22: POC Glucose 142 H 05/24/21 11:23: POC Glucose 210 H 05/24/21 11:32: APTT 55.6 H Micro: Microbiology 05/20/21 15:05 Nasal Secretion SARS-CoV-2 Antigen (Rapid) - Final Rhythm Strip Rhythm Strip: Sinus Rhythm Rate: 88 Ectopy: None Physical Exam Const alert, oriented x3 and no apparent distress Exam Limitations: no limitations HEENT head/scalp atraumatic and moist oral mucous membranes Head and Scalp: normocephalic Eyes PERRL, EOMs intact bilaterally and conjunctivae normal Neck no lymphadenopathy Resp Resp Narrative: diminished breath sounds bibasally, no wheezes or crackles. On 5 L of oxygen by nasal canula. Cardio regular rate, regular rhythm, S1 normal heart sound, S2 normal heart sound and no murmurs GI normal to inspection, nondistended, normoactive bowel sounds, soft to palpation, non-tender, non-distended and hepatosplenomegaly Extremity normal to inspection, full ROM and no clubbing, cyanosis or edema Peripheral Pulses: Yes pulses 2+ throughout Skin no rashes or lesions noted Neuro oriented x3, CN's II-XII intact bilaterally and moves all extremities Sensorium / Orientation: awake and alert Psych affect normal Assessment & Plan Assessment/Plan (1) Diabetes mellitus, new onset: (2) Bilateral pulmonary embolism: (3) Acute and chronic respiratory failure with hypoxia: PLAN: #Acute hypoxic respiratory failure due to submassive PE * patient is down to 5L of oxygen today * 2D echo showed right ventricular strain and markedly elevated PA pressure of 70mmHg. * on heparin drip. Pulmonology on board * on IV levaquin. to complete a 7 day course * titrate oxygen to maintain sats >90% * breathing treatment with bronchodilators. * to switch to eliquis at discharge. * #Bilateral submassive PE * management as above. * pulmonology on board. * #Severe pulmonary hypertension * PA pressure per echo was 70mmHg, which is likely secondary to the bilateral PE * will need follow up 2D echo to assess for improvement down the line * #Type 2 diabetes mellitus * newly diagnosed * A1C was 11.2. * on lantus 10 units qhs. ISS. Accuchecks ACHS * on metformin 500mg bid * #Hypertension: * BP meds on hold due to patient's low BP on admission. * BP has now improved. Will continue to hold for now DVT prophylaxis: not indicated as patient is on heparin drip for PE. Charges/Coding Visit Charges Inpatient E&M: 99420 Subs Hosp L2
--- NOTE | 2021-05-24 15:02 | CASEMGMT ---
Pt has no Rx coverage and [facility] Rx assist to be utilized at [facility] pharmacy[address]. Portillo aware to send meds 05/25 as pharmacy is only open till 1630. Rx assist paper already tubed to pharmacy with note regarding same. Green sheet left on chart for home oxygen, if pt qualifies. Jennifer JUNG CM
[2021-05-24 16:45] LABS: Bedside Glucose 203 mg/dL (70-110)
[2021-05-24] MEDS: Pravastatin 80 MG Tablet PO (21:09)
[2021-05-24 21:26] LABS: Bedside Glucose 209 mg/dL (70-110)
[2021-05-25] VITALS (7 sets, daily range): BP systolic 140–147; BP diastolic 90–99; PULSE 89–111; RESP 16–20; TEMP 36.8–36.9; O2SAT 89–97
[2021-05-25 05:27] LABS: Absolute Lymphocyte Count 1.84 X10^3/uL (0.83-4.51); Absolute Neutrophil Count 2.5 X10^3/uL (2.0-7.7); Basophil# 0.02 X10^3/uL; Basophil% 0.4 % (0-1); Eosinophil# 0.06 X10^3/uL; Eosinophils% 1.2 % (0-5); Hematocrit 40.1 % (40-54); Hemoglobin 14.1 g/dL (13.0-16.5); Lymphocyte # 1.84 X10^3/ul (0.83-4.51); Lymphocyte % 36.9 % (19-41); Mean Corp Hgb Conc 35.2 g/dL (32-36); Mean Corpuscular Hgb 32.5 pg (27.0-32.0); Mean Corpuscular Volume 92.4 fL (80-94); Mean Platelet Vol. 10.9 fl (6.2-12.0); Monocyte# 0.46 X10^3/uL; Monocyte% 9.2 % (0-10); NRBC Flagged by Analyzer 0 % (0-5); Neutrophil # 2.54 X10^3/uL (2.7-7.7); Neutrophil % 50.9 % (47-70); POSITIVE COUNT YES; Platelet Count 91 K/mm3 (150-450); RBC Distribution Width CV 13.2 % (11.6-14.6); RBC Distribution Width SD 44.4 fl (35.1-43.9); Red Blood Count 4.34 M/mm3 (4.6-6.2)
[2021-05-25 05:41] LABS: Partial Thromboplast Time 59.9 Seconds (24.1-36.2)
[2021-05-25 05:47] LABS: Anion Gap 7 (5-15); BUN 12 mg/dL (7-18); BUN/Creat Ratio 14.9 RATIO (10-20); Calcium,Total 8.4 mg/dL (8.5-10.1); Chloride 101 mmol/L (98-107); Creatinine, Serum 0.81 mg/dL (0.70-1.30); EST Glomerular Filtration Rate 102 mL/min (>60); Est Glom Filt Rate - Afr Amer 123 mL/min (>60); Estimated Creatinine Clearance 111.63 ml/min; Glucose 146 mg/dL (74-106); Potassium 4.2 mmol/L (3.5-5.1); Sodium Level 133 mmol/L (136-145)
[2021-05-25] MEDS: Fenofibrate 145 MG Tablet PO (08:47)
[2021-05-25] MEDS: metFORMIN HCl 500 MG Tablet PO (08:47)
[2021-05-25] MEDS: Potassium Chloride Oral Tablet 20 MEQ PO (08:48)
[2021-05-25] MEDS: levoFLOXacin IV 750 MG/150 ML BAG 100 MG IV (10:35)
--- NOTE | 2021-05-25 10:43 | CASEMGMT ---
ERICH NASH NOTE: Dr Portillo requesting amezcua check on Eliquis vs Xarelto. TC to [facility] pharmacy. 30-day supply of Eliquis 5 mg po BID is $429.31 and for Xarelto 20 mg daily it is $423.80. Dr Portillo made aware and asks for PCU nurse to discuss this w/pt to inquire if this is affordable, as he will need to be on one of these for approx 6 months. Timmy, PCU charge made aware of the above and states will talk w/pt and will f/u w/Dr Portillo. Damien MANNN ERICH CM
[2021-05-25] MEDS: Insulin Lispro 100 UNIT/ML INSULN.PEN SC (11:04)
[2021-05-25 11:21] LABS: Bedside Glucose 201 mg/dL (70-110)
--- NOTE | 2021-05-25 11:46 | PCM.DC.SUM ---
Providers Date of Admission: 05/20/21 Primary Care Physician: Yen Primary Care Phys Consultations 05/21/21 14:32 Consult: Full Stack Software Developer / Pulmonary Medicine Routine Consulting Provider: Pulmonary Medicine emory Thomas Reason for Consult: submassive PE EMERGENT Consult: No MD Notified: Yes Date Notified: 05/21/21 Time Notified: 14:32 Method of Notification: Text Reason For Visit: PULMONARY EMBOLISM, HYPERGLYCEMIA Diagnosis Discharge Diagnosis (1) Diabetes mellitus, new onset: Status: Acute Code(s): E11.9 - Type 2 diabetes mellitus without complications (2) Bilateral pulmonary embolism: Status: Acute Code(s): I26.99 - Other pulmonary embolism without acute cor pulmonale (3) Acute and chronic respiratory failure with hypoxia: Status: Chronic Code(s): J96.21 - Acute and chronic respiratory failure with hypoxia Medications at Discharge Home Medications HANDICAP PLACARD #1 ea 03/09/20 lisinopril 20 mg tablet 20 mg PO BID #180 tab 09/11/20 furosemide 40 mg tablet 40 mg PO QDAY #90 tab 09/19/20 potassium chloride 20 mEq tablet,extended release 20 meq PO QDAY #90 tab 09/25/20 amlodipine 10 mg tablet 10 mg PO DAILY #90 tab 10/04/20 atenolol 50 mg tablet 50 mg PO BID #180 tab 10/04/20 pravastatin 80 mg tablet 80 mg PO QHS #90 tab 10/25/20 fenofibrate micronized 130 mg capsule 130 mg PO QDAY #30 cap 04/09/21 blood sugar diagnostic [Freestyle Insu[employer]x] #10 ea 05/25/21 blood-glucose meter #1 ea 05/25/21 insulin glargine 10 unit SUBCUT QPM #15 ml 05/25/21 levofloxacin 750 mg PO DAILY #5 tab 05/25/21 metformin 500 mg PO BID #60 tab 05/25/21 rivaroxaban [Xarelto DVT-PE Treat 30d Start] 1 tab PO UD #51 tab 05/25/21 Hospital Course Operations None Procedures 2-D Echocardiogram Summary of Care Provided Minutes Spent on Discharge: 40 Hospital Course: Patient is a 65-year-old male with a past medical history as outlined who was admitted through the ED on 05/20/2021 with a complaint of shortness of breath which have been going on for about 4 days. Was worsened with exertion and he had associated chills and intermittent dry cough. 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 D-dimer was markedly elevated he also had elevated BNP and chest x-ray showed evidence of pulmonary congestion. CTA of the chest was positive for bilateral PE. He was admitted to be managed for bilateral PE. He was initially started on Eliquis. However patient's oxygen requirements increased and was diagnosed with submassive pulmonary embolism. He was therefore switched to heparin drip. Of note patient was also noted to have elevated blood sugar on admission and was found to have newly diagnosed diabetes as his A1c was around 11. He was started on subcu Lantus 10 units daily as well as Metformin 500 mg twice daily. He had 2D echo which showed severe right ventricular strain and markedly elevated pulmonary artery pressure of 70 mmHg. Of note patient was also started on Levaquin due to concerns about probable pneumonia. Patient's shortness of breath gradually resolved he was weaned off of oxygen. Patient was transitioned to Xarelto at time of discharge and was also discharged on subcu Lantus 10 units daily as well as Metformin 500 mg twice daily. Patient was referred to pulmonology as well as to [place] [facility] to establish PCP care. He is to follow-up with his primary care doctor and rehab/pre vocational counselor in 1 to 2 weeks. Of note, bilateral PE was thought to be due to a sedentary lifestyle as no other clear cause was found. He had had a colonoscopy about 10 years ago and said it was completely normal then. He is to follow-up with his primary care doctor once he establishes relationship with 1 for age-appropriate screening. Patient seen and examined prior to discharge. He had no complaints and felt well. Review of systems otherwise negative. Labs and vitals reviewed. Home medication reviewed and reconciled. Physical Exam Const alert, oriented x3 and no apparent distress General Appearance: cooperative, comfortable and well kempt Exam Limitations: no limitations HEENT normocephalic, head/scalp atraumatic and moist oral mucous membranes Eyes PERRL, EOMs intact bilaterally and conjunctivae normal Neck no lymphadenopathy Resp Resp Narrative: diminished breath sounds bibasally, no wheezes or crackles. weaned off oxygen onto room air. Cardio regular rate, regular rhythm, S1 normal heart sound, S2 normal heart sound and no murmurs GI normal to inspection, nondistended, normoactive bowel sounds, soft to palpation, non-tender, non-distended and hepatosplenomegaly Extremity normal to inspection, full ROM and no clubbing, cyanosis or edema Skin no rashes or lesions noted Neuro oriented x3, CN's II-XII intact bilaterally and moves all extremities Sensorium / Orientation: awake and alert Psych affect normal Weight / BMI Weight Weight: 262 lb 5.601 oz Body Mass Index (BMI) 31.9 ABG / Lab / Microbiology Data Result Diagrams: 05/25/21 04:52 05/25/21 04:52 Laboratory: Laboratory Results - last 24 hr 05/24/21 11:32: APTT 55.6 H 05/24/21 16:39: POC Glucose 203 H 05/24/21 21:06: POC Glucose 209 H 05/25/21 04:52: WBC 5.0, RBC 4.34 L, Hgb 14.1, Hct 40.1, MCV 92.4, MCH 32.5 H, MCHC 35.2, RDW Std Deviation 44.4 H, RDW Coeff of Bessie 13.2, Plt Count 91 L, MPV 10.9, Immature Gran % (Auto) 1.400 H, Neut % (Auto) 50.9, Lymph % (Auto) 36.9, [place] % (Auto) 9.2, Eos % (Auto) 1.2, Baso % (Auto) 0.4, Absolute Neuts (auto) 2.5, Absolute Lymphs (auto) 1.84, Nucleated RBC % 0 05/25/21 04:52: Sodium 133 L, Potassium 4.2, Chloride 101, Carbon Dioxide 25.0, Anion Gap 7, BUN 12, Creatinine 0.81, Estim Creat Clear Calc 111.63, Est GFR (MDRD) Af Amer 123, Est GFR (MDRD) Non-Af 102, BUN/Creatinine Ratio 14.9, Glucose 146 H, Calcium 8.4 L 05/25/21 04:52: APTT 59.9 H 05/25/21 11:03: POC Glucose 201 H Microbiology: Microbiology 05/20/21 15:05 Nasal Secretion SARS-CoV-2 Antigen (Rapid) - Final D/C Instructions Discharge Diet: 1800 Calorie Control Diet Discharge Activity: Return to Normal Activity Weight Bearing Status: Weight bearing as tolerated Call your doctor if you observe: Shortness of breath, Dizziness, Swelling in the ankles, Chest pain, Increased palpitations (irregular heartbeat) and Calf discomfort Meaningful Use Info Meaningful Use Diagnoses (Choose all that apply): VTE VTE Anticoag overlap given w/in hospital stay or rx'd at ut?: Yes Pt receive overlap for 5 days?: No Reason overlap not ordered, prescribed, or given for 5 days: Procedure Not Indicated Discharge Plan Admission Admit Date/Time: 05/20/21 21:41 Primary Reason for Your Visit: bilateral PE; newly diagnosed diabetes mellitus. Attending Provider: Michelle Portillo Primary Care Provider: Care Physician,No Primary Consulting Providers: Larry Cook ; Cyrus Webster ; Agueda Adam FRUIT BAR MAKER Discharge Orders/Prescriptions Prescriptions: New insulin glargine 100 unit/mL (3 mL) insulin pen 10 unit subcut QPM Qty: 15 RF: 0 metformin 500 mg tablet 500 mg PO BID Qty: 60 RF: 1 levofloxacin 750 mg tablet 750 mg PO DAILY Qty: 5 RF: 0 Xarelto DVT-PE Treat 30d Start 15 mg (42)- 20 mg (9) tablets,dose pack 1 tab PO UD Qty: 51 RF: 0 (DME) blood-glucose meter Kit See Rx Instructions .ROUTE .MEDSUPPLY Qty: 1 RF: 0 (DME) Freestyle [employer] Strip See Rx Instructions .ROUTE .MEDSUPPLY Qty: 10 RF: 0 Continued amlodipine 10 mg tablet 10 mg PO DAILY Qty: 90 RF: 4 atenolol 50 mg tablet 50 mg PO BID Qty: 180 RF: 4 (DME) HANDICAP PLACARD See Rx Instructions .Route .MEDSUPPLY Qty: 1 RF: 0 lisinopril [Prinivil] 20 mg tablet 20 mg PO BID Qty: 180 RF: 3 furosemide 40 mg tablet 40 mg PO QDAY Qty: 90 RF: 3 potassium chloride 20 mEq tablet extended release 20 meq PO QDAY Qty: 90 RF: 3 pravastatin 80 mg tablet 80 mg PO QHS Qty: 90 RF: 3 fenofibrate micronized 130 mg capsule 130 mg PO QDAY Qty: 30 RF: 4 Discontinued aspirin 325 mg tablet 325 mg PO QDAY RF: 0 Referrals / Follow Up: Cyrus Webster DO [STAFF PHYSICIAN] - Within 2 Weeks Natty Amaya MD [STAFF PHYSICIAN] - Within 2 Weeks (follow up to establish PCP relationship) Care Physician,No Primary [Primary Care Provider] - Disposition Disposition (needs filled in before D/C Order can be placed): Home, Self Care Charges/Coding Visit Charges Inpatient E&M: 47904 Disch Hosp
--- NOTE | 2021-05-25 13:30 | CASEMGMT ---
ERICH NASH NOTE: Pt has received new scripts from [facility] pharmacy using Rx assist program. Noted no pen needles in bag w/discharge meds. Pt wishing to discharge before pen needles delivered to room. He is aware he can get from [facility] pharmacy once they are ready. Dr Portillo made aware and will e-scribe them. Pt made aware glucometer is not available @ [facility] retail pharmacy. Pt has been given script for glucometer and made aware he can take to pharmacy of his choice. Questions answered. Pt denies having other discharge planning needs or concerns. Damien ROQUE RN CM
== END 2021-05-25 14:06 | disposition home or self-care (01) | DRG 175 ==
LOC: ED 21:46 → PCU 21:53
PROVIDERS: Admitting Provider Hospitalist; Emergency Provider Emergency Medicine; Visit Provider Student in an Organized Health Care Education/Training Program
DX: I26.99 Other pulmonary embolism without acute cor pulmonale (principal); J96.01 Acute respiratory failure with hypoxia; I42.0 Dilated cardiomyopathy; I50.22 Chronic systolic (congestive) heart failure; E11.65 Type 2 diabetes mellitus with hyperglycemia; E11.51 Type 2 diabetes mellitus with diabetic peripheral angiopathy without gangrene; E66.9 Obesity, unspecified; Z68.31 Body mass index [BMI] 31.0-31.9, adult; E78.00 Pure hypercholesterolemia, unspecified; F32.A Depression, unspecified; F41.9 Anxiety disorder, unspecified; G47.33 Obstructive sleep apnea (adult) (pediatric); I11.0 Hypertensive heart disease with heart failure; I25.10 Atherosclerotic heart disease of native coronary artery without angina pectoris; I27.20 Pulmonary hypertension, unspecified; M19.90 Unspecified osteoarthritis, unspecified site; Z79.82 Long term (current) use of aspirin; Z79.899 Other long term (current) drug therapy; Z95.810 Presence of automatic (implantable) cardiac defibrillator; Z87.891 Personal history of nicotine dependence; Z23 Encounter for immunization
CPT/HCPCS: 36415; 71045; 71275; 80048; 82962; 83036; 83880; 84484; 85025; 85379; 85610; 85730; 87426; 87635; 93005; 93306; 97802; 99285; G0008; J7030; Q9957; Q9967; U0005; 90686; A4216; J2405; U0003

== ENCOUNTER 2021-06-21 08:57 | Outpatient (CLI) | payer MEDICARE, SELFPAY ==
[2021-06-21 09:44] LABS: Absolute Lymphocyte Count 1.53 X10^3/uL (0.83-4.51); Absolute Neutrophil Count 3.4 X10^3/uL (2.0-7.7); Basophil# 0.03 X10^3/uL; Basophil% 0.5 % (0-1); Eosinophils% 1.8 % (0-5); Hematocrit 44.5 % (40-54); Hemoglobin 15.3 g/dL (13.0-16.5); Lymphocyte # 1.53 X10^3/ul (0.83-4.51); Lymphocyte % 27.6 % (19-41); Mean Corp Hgb Conc 34.4 g/dL (32-36); Mean Corpuscular Volume 93.1 fL (80-94); Mean Platelet Vol. 9.9 fl (6.2-12.0); Monocyte# 0.48 X10^3/uL; Monocyte% 8.6 % (0-10); NRBC Flagged by Analyzer 0 % (0-5); Neutrophil # 3.37 X10^3/uL (2.7-7.7); Neutrophil % 60.8 % (47-70); Platelet Count 177 K/mm3 (150-450); RBC Distribution Width CV 12.5 % (11.6-14.6); Red Blood Count 4.78 M/mm3 (4.6-6.2); White Blood Count 5.6 K/mm3 (4.4-11.0)
[2021-06-21 10:18] LABS: Vitamin D,25 Hydroxy 44.1 ng/mL
[2021-06-21 10:24] LABS: AST(SGOT) 19 U/L (15-37); Alanine Aminotransfer ALT/SGPT 30 U/L (16-61); Albumin, Serum 3.7 g/dL (3.2-5.0); Alkaline Phosphatase 53 U/L (45-117); Anion Gap 6 (5-15); BUN 24 mg/dL (7-18); BUN/Creat Ratio 28.8 RATIO (10-20); Bilirubin, Direct 0.13 mg/dL (0.00-0.30); Calcium,Total 9.1 mg/dL (8.5-10.1); Chloride 104 mmol/L (98-107); Cholesterol 132 mg/dL (200); Creatinine, Serum 0.83 mg/dL (0.70-1.30); EST Glomerular Filtration Rate 98 mL/min (>60); Est Glom Filt Rate - Afr Amer 119 mL/min (>60); Globulin 3.8 g/dL (2.2-4.2); Glucose 149 mg/dL (74-106); High Density Lipoprotein 33 mg/dL; PSA,Total- Diagnostic 1.14 ng/mL (0.0-4.0); Potassium 4.3 mmol/L (3.5-5.1); Protein, Total 7.5 g/dL (6.4-8.2); Sodium Level 137 mmol/L (136-145); T4 Free Direct 1.09 ng/dL (0.76-1.46); Thyroid Stim Hormone (TSH) 0.49 uIU/mL (0.358-3.74); Triglycerides 190 mg/dL; Very Low Density Lipoprotein 38 mg/dL (5-40)
== END 2021-06-21 23:59 | disposition short-term general hospital (02) ==
LOC: LAB 09:00
PROVIDERS: PCP Internal Medicine; Referring Provider Nurse Practitioner Family; Visit Provider Nurse Practitioner Family
DX: E55.9 Vitamin D deficiency, unspecified (principal); I26.99 Other pulmonary embolism without acute cor pulmonale; I42.0 Dilated cardiomyopathy; I50.22 Chronic systolic (congestive) heart failure; I11.0 Hypertensive heart disease with heart failure; I73.9 Peripheral vascular disease, unspecified; E78.1 Pure hyperglyceridemia; E78.00 Pure hypercholesterolemia, unspecified; N40.1 Benign prostatic hyperplasia with lower urinary tract symptoms; N13.8 Other obstructive and reflux uropathy; Z95.810 Presence of automatic (implantable) cardiac defibrillator
CPT/HCPCS: 80053; 80061; 82248; 82306; 84153; 84439; 84443; 84481; 85025

== ENCOUNTER → 2021-11-07 | Outpatient (CLI) | payer MEDICARE, SELFPAY ==
--- NOTE | 2021-11-07 09:59 | ECHOLC_ITS ---
Reason For Study: DYSPNEA/SOB Procedure This was a limited 2D transthoracic echocardiogram. The study was technically difficult. Exam performed in department. Left Ventricle Normal LV size. The estimated ejection fraction is 45 %. No regional wall motion abnormalities noted. Right Ventricle Normal RV size. Mild global right ventricular systolic dysfunction. Atria Normal left atrium. Normal right atrium. Mitral Valve Normal mitral valve. Tricuspid Valve Normal tricuspid valve. Mild (1+) tricuspid valve insufficiency. Pulmonary artery systolic pressure is 38 mmHg. Great Vessels Normal aortic root. Pericardium/Pleural No pericardial effusion. Medication 22 gauge I.V. with prn adaptor inserted into right arm. Diluted definity 1.5ml given slow IV push to enhance endocardial definition. MMode/2D Measurements & Calculations LVIDd: 5.5 cm IVSd: 0.84 cm LVAd ap4: 39.6 cm2 LVIDs: 4.1 cm LVPWd: 0.83 cm LVLd ap4: 9.2 cm FS: 26.1 % EDV(MOD-sp4): 137.9 ml EDV(sp4-el): 144.0 ml LVAs ap4: 24.5 cm2 LVLs ap4: 7.5 cm ESV(MOD-sp4): 68.5 ml ESV(sp4-el): 68.2 ml EF(MOD-sp4): 50.3 % EF(sp4-el): 52.6 % SV(MOD-sp4): 69.4 ml SV(sp4-el): 75.8 ml Doppler Measurements & Calculations TR max jazmyne: 295.4 cm/sec TR max P.9 mmHg ECHO/Echo Limited w/Contrast Interpretation Summary The estimated ejection fraction is 45 %. Normal LV size. Mild (1+) tricuspid valve insufficiency. Pulmonary artery systolic pressure is 38 mmHg. Compared to the previous study the pulmonary artery systolic pressures are brenden edly reduced. Contrast injection was performed. The study was technically limited. Ordering Physician: Agueda Adam Referring Physician: MELANIA CASTILLO Performed By: Deb Youngblood RDCS
== END | disposition home or self-care (01) ==
PROVIDERS: PCP Internal Medicine; Visit Provider Nurse Practitioner Acute Care
DX: I50.22 Chronic systolic (congestive) heart failure (principal); R06.02 Shortness of breath
CPT/HCPCS: 93308; Q9957; A4216; C8924

== ENCOUNTER → 2022-02-11 | Outpatient (CLI) | payer MEDICARE, SELFPAY ==
[2022-02-11 11:36] LABS: Absolute Lymphocyte Count 2.22 X10^3/uL (0.83-4.51); Absolute Neutrophil Count 3.4 X10^3/uL (2.0-7.7); Basophil# 0.03 X10^3/uL; Basophil% 0.5 % (0-1); Eosinophil# 0.12 X10^3/uL; Eosinophils% 1.9 % (0-5); Hematocrit 45.8 % (40-54); Hemoglobin 15.6 g/dL (13.0-16.5); Lymphocyte # 2.22 X10^3/ul (0.83-4.51); Mean Corp Hgb Conc 34.1 g/dL (32-36); Mean Corpuscular Hgb 31.9 pg (27.0-32.0); Mean Corpuscular Volume 93.7 fL (80-94); Mean Platelet Vol. 10.7 fl (6.2-12.0); Monocyte# 0.56 X10^3/uL; Monocyte% 8.8 % (0-10); NRBC Flagged by Analyzer 0 % (0-5); Neutrophil # 3.37 X10^3/uL (2.7-7.7); Neutrophil % 53.2 % (47-70); Platelet Count 195 K/mm3 (150-450); RBC Distribution Width CV 12.7 % (11.6-14.6); RBC Distribution Width SD 43.6 fl (35.1-43.9); Red Blood Count 4.89 M/mm3 (4.6-6.2); White Blood Count 6.3 K/mm3 (4.4-11.0)
[2022-02-11 12:01] LABS: Hemoglobin A1c 8.4 % (3.8-5.6)
[2022-02-11 12:40] LABS: ALB/GLOB Ratio 1.1 RATIO (0.9-2.4); AST(SGOT) 28 U/L (15-37); Alanine Aminotransfer ALT/SGPT 56 U/L (16-61); Albumin, Serum 4.1 g/dL (3.2-5.0); Alkaline Phosphatase 55 U/L (45-117); Anion Gap 7 (5-15); BUN 27 mg/dL (7-18); BUN/Creat Ratio 30.3 RATIO (10-20); Calcium,Total 9.7 mg/dL (8.5-10.1); Chloride 104 mmol/L (98-107); Cholesterol 152 mg/dL (200); Creatinine, Serum 0.89 mg/dL (0.70-1.30); EST Glomerular Filtration Rate 91 mL/min (>60); Est Glom Filt Rate - Afr Amer 110 mL/min (>60); Globulin 3.7 g/dL (2.2-4.2); Glucose 177 mg/dL (74-106); High Density Lipoprotein 36 mg/dL; Potassium 4.1 mmol/L (3.5-5.1); Protein, Total 7.8 g/dL (6.4-8.2); Sodium Level 141 mmol/L (136-145); Triglycerides 233 mg/dL; Very Low Density Lipoprotein 47 mg/dL (5-40)
== END | disposition home or self-care (01) ==
LOC: LAB 10:12
PROVIDERS: PCP Internal Medicine; Referring Provider Internal Medicine; Visit Provider Internal Medicine
DX: I10 Essential (primary) hypertension (principal); E11.9 Type 2 diabetes mellitus without complications; E78.1 Pure hyperglyceridemia; E78.00 Pure hypercholesterolemia, unspecified
CPT/HCPCS: 36415; 80053; 80061; 83036; 85025

== ENCOUNTER → 2022-08-12 | Outpatient (CLI) | payer MEDICARE, SELFPAY ==
[2022-08-12 09:47] LABS: Absolute Lymphocyte Count 1.83 X10^3/uL (0.83-4.51); Absolute Neutrophil Count 3.7 X10^3/uL (2.0-7.7); Basophil# 0.04 X10^3/uL; Basophil% 0.6 % (0-1); Eosinophil# 0.12 X10^3/uL; Eosinophils% 1.9 % (0-5); Hematocrit 47.7 % (40-54); Lymphocyte # 1.83 X10^3/ul (0.83-4.51); Lymphocyte % 28.8 % (19-41); Mean Corp Hgb Conc 33.5 g/dL (32-36); Mean Corpuscular Hgb 31.7 pg (27.0-32.0); Mean Corpuscular Volume 94.5 fL (80-94); Mean Platelet Vol. 10.3 fl (6.2-12.0); Monocyte# 0.61 X10^3/uL; Monocyte% 9.6 % (0-10); NRBC Flagged by Analyzer 0 % (0-5); Neutrophil % 58.2 % (47-70); Platelet Count 192 K/mm3 (150-450); RBC Distribution Width CV 12.6 % (11.6-14.6); RBC Distribution Width SD 43.5 fl (35.1-43.9); Red Blood Count 5.05 M/mm3 (4.6-6.2); White Blood Count 6.4 K/mm3 (4.4-11.0)
[2022-08-12 10:09] LABS: D-Dimer Quantitative (DVT/PE) 1.38 FEU/ug/m (0.27-0.49)
[2022-08-12 10:36] LABS: ALB/GLOB Ratio 1.2 RATIO (0.9-2.4); AST(SGOT) 29 U/L (15-37); Alanine Aminotransfer ALT/SGPT 52 U/L (16-61); Alkaline Phosphatase 48 U/L (45-117); Anion Gap 10 (5-15); BUN 24 mg/dL (7-18); BUN/Creat Ratio 24.5 RATIO (10-20); Calcium,Total 9.6 mg/dL (8.5-10.1); Chloride 101 mmol/L (98-107); Cholesterol 159 mg/dL (200); Creatinine, Serum 0.98 mg/dL (0.70-1.30); EST Glomerular Filtration Rate 81 mL/min (>60); Est Glom Filt Rate - Afr Amer 98 mL/min (>60); Globulin 3.4 g/dL (2.2-4.2); Glucose 232 mg/dL (74-106); High Density Lipoprotein 34 mg/dL; PSA,Total - Annual Screen 1.11 ng/mL (0.00-4.00); Protein, Total 7.4 g/dL (6.4-8.2); Sodium Level 138 mmol/L (136-145); Thyroid Stim Hormone (TSH) 0.78 uIU/mL (0.358-3.74); Triglycerides 310 mg/dL; Very Low Density Lipoprotein 62 mg/dL (5-40)
== END | disposition home or self-care (01) ==
PROVIDERS: PCP Internal Medicine; Referring Provider Internal Medicine; Visit Provider Internal Medicine
DX: I42.0 Dilated cardiomyopathy (principal); E11.9 Type 2 diabetes mellitus without complications; G47.33 Obstructive sleep apnea (adult) (pediatric); E78.1 Pure hyperglyceridemia; Z95.810 Presence of automatic (implantable) cardiac defibrillator; E78.00 Pure hypercholesterolemia, unspecified; I10 Essential (primary) hypertension; M79.662 Pain in left lower leg; Z13.220 Encounter for screening for lipoid disorders; Z12.5 Encounter for screening for malignant neoplasm of prostate
CPT/HCPCS: 36415; 80053; 80061; 84153; 84443; 85025; 85379; G0103

== ENCOUNTER → 2022-08-21 | Outpatient (CLI) | payer MEDICARE, SELFPAY ==
--- NOTE | 2022-08-21 07:51 | VDLE_ITS ---
Reason For Study: LLE PAIN RIGHT LEFT CFV is compressible, spontaneous, phasic, GSV is normal. competent and demonstrates normal CFV is compressible, spontaneous, phasic, augmentation. competent, and demonstrates normal Procedure augmentation. This is a venous duplex using B-mode, color FV is compressible, spontaneous, phasic, flow and spectral Doppler. competent and demonstrates normal Exam performed in department. augmentation. A preliminary report was called and/or faxed POP V is compressible, spontaneous, phasic, to Dr. Norwood @ [phone] @8:20 am. competent and demonstrates normal augmentation. T/P Trunk is compressible. PTV is compressible. LT PerV is compressible. VL/Venous Duplex US, Unilateral Interpretation Summary There is no evidence of left lower extremity deep vein thrombosis. Left great s aphenous vein appears patent and compressible segmentally. Normal flow patterns right common femoral vein Ordering Physician: Sadia Norwood Referring Physician: Sadia Norwood Performed By: Jossy Patton, KARRIE, RVT
== END | disposition home or self-care (01) ==
PROVIDERS: PCP Internal Medicine; Referring Provider Internal Medicine; Visit Provider Internal Medicine
DX: M79.662 Pain in left lower leg (principal); M79.89 Other specified soft tissue disorders
CPT/HCPCS: 93971

== ENCOUNTER 2023-07-14 17:49 | Emergency (ER) | payer MEDICARE, SELFPAY ==
[2023-07-14 17:50] VITALS: BP 131/83; PULSE 94; RESP 14; TEMP 36.4; O2SAT 94
--- NOTE | 2023-07-14 18:38 | US_ITS ---
STUDY: VENOUS DOPPLER ULTRASOUND - RIGHT LOWER EXTREMITY REASON FOR EXAM: Male, 67 years old. RIGHT LEG PAIN AND SWELLING TECHNIQUE: Ultrasound evaluation of the deep vein system to include carr-scale imaging and compression was performed. Carr-scale imaging and Doppler sonographic evaluation, including duplex spectral analysis and qualitative color flow sonography, was performed. COMPARISON: None. FINDINGS: Common Femoral Vein: Normal compression, spontaneity and augmentation. Normal color Doppler. Common Femoral Vein/Greater Saphenous Junction: Normal compression, spontaneity and augmentation. Normal color Doppler. Deep Femoral Vein: Normal compression, spontaneity and augmentation. Normal color Doppler. Femoral Proximal: Normal compression, spontaneity and augmentation. Normal color Doppler. Femoral Middle: Normal compression, spontaneity and augmentation. Normal color Doppler. Femoral Distal: Normal compression, spontaneity and augmentation. Normal color Doppler. Popliteal Vein: Normal compression, spontaneity and augmentation. Normal color Doppler. Posterior Tibial Vein: Not imaged Peroneal Vein: Not imaged US/Venous Duplex Imag/Limited/Uni IMPRESSION: Lower leg not imaged. Otherwise no DVT. Electronically Signed: Brendan Suárez MD at 20:13 EST ,
--- NOTE | 2023-07-14 19:14 | EDS_ITS ---
HPI History of Present Illness Chief Complaint: Lower Extremity Injury Detail of Chief Complaint: Right leg pain swelling discoloration Informant: patient Occured/Mechanism Comment: Atraumatic right lower extremity pain, swelling discoloration Onset/Context/Timing Context: Sudden Onset Timing: Continuous Quality of Pain: Dull Location: Right lower extremity Current Severity: Moderate Maximum Severity: Moderate Worsened by: Nothing Relieved by: Nothing Associated Symptoms Associated Symptoms: Negative for Parasthesia, Weakness or Loss of Funtion Narrative Narrative: Patient is a 67-year-old male presents with swelling, discoloration and pain of his right lower extremity. Patient had a femoral line in the right lower extremity had surgical procedure within the past month. He denies history of PE or DVT. He states he was on Eliquis in the past. He has history of hypertension, hypercholesterolemia, type 1 diabetes who presents with pain and swelling discoloration of right lower extremity. He denies chest pain. He denies dyspnea at rest. He may have slight shortness of breath with activity. He denies fever, chills night sweats. He denies headache, visual, ocular auditory symptoms. He denies abdominal pain, nausea, vomit diarrhea. He denies history of peptic ulcer disease. Denies black or maroon-colored stool. Prior similar symptoms: No Recent Illness/Hospitalization: Yes [facility] Medical History Anxiety Arthritis Bilateral pulmonary embolism Cardiology follow-up encounter Cardiomyopathy, dilated Chronic systolic congestive heart failure Depression Diabetes mellitus, new onset Essential hypertension Former smoker Gastric reflux High cholesterol History of pacemaker Implantable cardioverter-defibrillator (ICD) at end of battery life Insulin dependent diabetes mellitus Leg cramps Marijuana use NINO (obstructive sleep apnea) Peripheral vascular disease Pulmonary embolism Pure hypercholesterolemia Wears dentures Wears glasses Home Medications HANDICAP PLACARD #1 ea 03/09/20 [Rx Last Taken Unknown] blood sugar diagnostic (Freestyle InsuLinx strips) #10 ea 05/25/21 [Rx Last Taken Unknown] blood-glucose meter #1 ea 05/25/21 [Rx Last Taken Unknown] aspirin 81 mg chewable tablet 81 mg PO DAILY 06/12/21 [History Last Taken Unknown] pen needle, diabetic 29 gauge x 1/2 (1st Tier Unifine Pentips) #100 ea 01/30/22 [Rx Last Taken Unknown] insulin glargine 100 unit/mL (3 mL) subcutaneous pen 10 unit (0.1 mL) subcut QPM #15 mL 08/12/22 [Rx Last Taken Unknown] lisinopril 20 mg tablet See Rx Instructions .Route .COMPLEX #180 tabs 09/09/22 [Rx Last Taken Unknown] amlodipine 10 mg tablet 10 mg PO DAILY #90 tabs 12/02/22 [Rx Last Taken Unknown] metformin 500 mg tablet 500 mg PO BID #180 tabs 12/02/22 [Rx Last Taken Unknown] fenofibrate micronized 130 mg capsule See Rx Instructions .Route .COMPLEX #90 caps 12/20/22 [Rx Last Taken Unknown] furosemide 40 mg tablet 40 mg PO QDAY #90 tabs 12/20/22 [Rx Last Taken Unknown] atenolol 50 mg tablet 50 mg PO BID #180 tabs 03/25/23 [Rx Last Taken Unknown] pravastatin 80 mg tablet 80 mg PO QHS #90 tabs 03/25/23 [Rx Last Taken Unknown] potassium chloride 20 mEq tablet,extended release 20 meq PO QDAY #90 tabs 06/24/23 [Rx Last Taken Unknown] apixaban 5 mg (74 tabs) tablets in a dose pack (Eliquis DVT-PE Treat 30D Start) 5 mg PO BID #74 tabs 07/14/23 [Rx Last Taken Unknown] Allergy/AdvReac Type Severity Reaction Status Date / Time No Known Allergies Allergy Verified 07/14/23 17:50 Family History Father Heart disease CVA (cerebral vascular accident) Mother Hypertension Surgical History H/O colonoscopy History of implantable cardiac defibrillator (ICD) History of tonsillectomy Presence of cardiac defibrillator (11/08/10) Social History Smoking Status: Former smoker Smokeless tobacco user: other alcohol intake: current alcohol intake frequency: a few times a month substance use type: marijuana caffeine: Yes Type: carbonated beverages Number of servings: 2 and coffee Number of servings: 2 ROS ROS ED Constitutional Constitutional ED: Denies chills, fever(s), subjective or sweats Eyes Eyes: Denies blurry vision, change in vision or diplopia ENT ENT ED: Denies rhinorrhea or sore throat Cardiovascular Cardiovascular: Denies chest pain, orthopnea, palpitations, paroxysmal nocturnal dyspnea or racing heartbeat Respiratory/Chest Respiratory/Chest: Reports dyspnea on exertion; Denies cough, dyspnea, orthopnea, paroxysmal nocturnal dyspnea or sputum Gastrointestinal Gastrointestinal: Denies abdominal pain, nausea or vomiting Genitourinary Genitourinary ED: Denies dysuria, hematuria or urinary frequency Musculoskeletal Musculoskeletal: Denies arthralgias or myalgias Integumentary Reports rash Neurologic Neurologic: Denies paresthesias or weakness Endocrine Endocrinology: Denies polydipsia, polyphagia or polyuria Hematologic/Lymphatic Hematologic/Lymphatic: Denies easy bleeding or easy bruising EXAM Physical Exam Const Vital Signs: 07/14/23 17:50 07/14/23 18:37 Temperature 97.5 F L Temperature Source Temporal Pulse Rate 94 Respiratory Rate 14 Respiratory Effort Normal Non-Labored Respiratory Pattern Normal Blood Pressure 131/83 H Blood Pressure Mean 99 Pulse Ox 94 Oxygen Delivery Method Room Air Positive well nourished, well developed and obese General Appearance ED: well developed and NAD Nutritional Appearance: obese HEENT normocephalic and atraumatic Eyes PERRL Eyes Narrative: Extraocular muscles are intact. Sclera is anicteric. Neck full ROM and supple Thyroid: Negative for tender Chest Wall inspection of chest normal and palpation of chest normal Resp normal respiratory effort, no retractions and clear to auscultation bilaterally Cardio regular rate, regular rhythm, S1 normal heart sound, S2 normal heart sound and no murmurs Back/Spine no CVA tenderness Extremity Extremity Narrative: Patient has phlegmasia cerulea dolens right lower extremity. DP pulses palpable. Neuro oriented x3, CN's II-XII intact bilaterally and moves all extremities Sensorium / Orientation: alert Psych mental status grossly normal Skin Skin Narrative: Phlegmasia cerulea dolens right lower extremity. There is evidence of port for femoral line as patient reported. This was probably the nidus for his DVT. MDM MDM MDM Narrative Medical decision making narrative: Patient has phlegmasia cerulea dolens. Patient has a DVT until proven o therwise. Patient does not have findings consistent with an ischemic leg. Radiography Diagnostic Testing: Venous duplex study reveals DVT involving the common, popliteal and distal branches. Treatment and Re-Evaluation Narrative: After explaining risk benefits of anticoagulation and options patient chose Eliquis. He has been on Eliquis in the past. He received his first dose in the emergency department. Discharge Plan Triage Chief Complaint: Lower Extremity Injury Other Complaint: General Illness ED Provider: Leonid Johnson Dx/Rx/DC Orders Clinical Impression: NINO (obstructive sleep apnea), History of diabetes mellitus, type I, Essential hypertension, Cardiomyopathy, dilated, Pure hypercholesterolemia, Phlegmasia cer ulea dolens of right lower extremity Instructions: ED Deep Vein Thrombosis (DVT) Prescriptions: New Eliquis DVT-PE Treat 30D Start 5 mg (74 tabs) tablets,dose pack 5 mg PO BID Qty: 74 0RF No Action aspirin 81 mg tablet,chewable 81 mg PO DAILY (DME) blood-glucose meter Kit See Rx Instructions .ROUTE .MEDSUPPLY Qty: 1 0RF Rx Instructions: As directed (DME) Freestyle InsuLinx Strip See Rx Instructions .ROUTE .MEDSUPPLY Qty: 10 0RF Rx Instructions: As directed (DME) HANDICAP PLACARD See Rx Instructions .Route .MEDSUPPLY Qty: 1 0RF Rx Instructions: As directed (DME) pen needle, diabetic [1st Tier Unifine Pentips] 29 gauge x 1/2 needle See Rx Instructions .Route Qty: 100 3RF Rx Instructions: As directed to administer insulin twice daily insulin glargine 100 unit/mL (3 mL) insulin pen 10 unit subcut QPM Qty: 15 5RF lisinopril 20 mg tablet See Rx Instructions .ROUTE .COMPLEX Qty: 180 3RF Dose Instruction: TAKE 1 TABLET BY MOUTH TWICE A DAY Rx Instructions: TAKE 1 TABLET BY MOUTH TWICE A DAY amlodipine 10 mg tablet 10 mg PO DAILY Qty: 90 4RF metformin 500 mg tablet 500 mg PO BID Qty: 180 3RF fenofibrate micronized 130 mg capsule See Rx Instructions .ROUTE .COMPLEX Qty: 90 3RF Dose Instruction: TAKE 1 CAPSULE DAILY Rx Instructions: TAKE 1 CAPSULE DAILY furosemide 40 mg tablet 40 mg PO QDAY Qty: 90 3RF atenolol 50 mg tablet 50 mg PO BID Qty: 180 4RF pravastatin 80 mg tablet 80 mg PO QHS Qty: 90 3RF potassium chloride 20 mEq tablet extended release 20 meq PO QDAY Qty: 90 3RF Primary Care Provider: Sadia Norwood Referrals: Sadia Norwood MD [Primary Care Provider] - 1-2 Weeks Disposition Disposition: Home, Self Care
--- OUTSIDE RECORDS SUMMARY | 2023-07-14 19:21 | XMS RPT_ITS | CCD ---
Author Name Unknown Address [id number] [place] [address] Organization [facility] Care Team Providers Care Microbiology Lab Analyst Name Role Phone Harinder JUNG, Laura Sanchez Unavailable [phone] Zelda DEL RIO, Jaden Gibson Unavailable DeFinis, Harumi Y Unavailable Unavailable DeFinis, Harumi Y Unavailable Unavailable [facility] Nurse Unavailable Unavailable Katelin Schneider Unavailable Unavailable Melania Castillo MD Primary Care Provider Tristin Chacko Unavailable Abdi Caldwell MD Unavailable MELANIA CASTILLO Primary Care Unavailable ZAHEER MCCLOUD Attending Unavailable ZAHEER MCCLOUD Admitting Unavailable MELANIA CASTILLO Primary Care Unavailable ABDI CALDWELL Referring Unavailable ZAHEER MCCLOUD Attending Unavailable MELANIA CASTILLO Primary Care Unavailable ZAHEER MCCLOUD Referring Unavailable Medications Completed/Discontinued Medications Medication Drug Class(es) Dates Sig (Normalized) Sig (Original) ALPRAZolam 0.25 mg oral tablet (14 sources) Benzodiazepine Start: 11-25-2011 End: 03-30-2012 take 1 tablet by mouth every six hours as needed XANAX 0.25 MG TABS 1 tablet by mouth every 6 hours as needed ALPRAZOLAM [id number] Jaden Ndiaye MD amLODIPine 10 mg oral tablet (1 source) Dihydropyridine Calcium Channel Carl Start: 03-22-2023 take 1 tablet by mouth once amLODIPine (NORVASC) 10 mg tablet Take 1 tablet by mouth every afternoon. 0 03/22/2023 Suspended Problems Active Problems Problem Classification Problem Date Documented Da te Episodic/Chronic Anxiety disorders (1 source) Anxiety; Translations: [Anxiety disorder, unspecified] Onset: 08-31-2018 08-31-2018 Chronic Complication of device; implant or graft (2 sources) Malfunction of automatic implantable cardioverter defibrillator; Translations: [Breakdown (mechanical) of other cardiac electronic device, initial encounter] Onset: 06-01-2023 07-02-2023 Episodic Conduction disorders (3 sources) Automatic implantable cardiac defibrillator in situ; Translations: [Presence of automatic (implantable) cardiac defibrillator] Onset: 06-01-2023 07-02-2023 Chronic Congestive heart failure; nonhypertensive (17 sources) Congestive heart failure; Translations: [Chronic systolic heart failure] Onset: 09-20-2010 09-20-2010 Chronic Disorders of lipid metabolism (15 sources) Hyperlipidemia; Translations: [Hypertriglyceridemi a] Onset: 09-20-2010 09-20-2010 Chronic Essential hypertension (8 sources) Hypertensive disorder; Translations: [Essential hypertension] Onset: 09-20-2010 09-20-2010 Chronic Osteoarthritis (1 source) Arthritis; Translations: [Unspecified osteoarthritis, unspecified site] Onset: 08-31-2018 08-31-2018 Chronic Other nutritional; endocrine; and metabolic disorders (20 sources) Body mass index (BMI) 33.0-33.9, adult; Translations: [Body mass index (BMI) 32.0-32.9, adult] Onset: 09-20-2010 Resolved: 02-17-2015 07-12-2014 Chronic Dimple-; endo-; and myocarditis; cardiomyopathy (16 sources) Dilated cardiomyopathy; Translations: [Cardiomyopathy in diseases classified elsewhere] Onset: 09-20-2010 09-20-2010 Chronic Peripheral and visceral atherosclerosis (11 sources) Peripheral vascular disease; Translations: [Peripheral vascular disease, unspecified] Onset: 09-20-2010 09-20-2010 Chronic Residual codes; unclassified (1 source) Sleep apnea; Translations: [Sleep apnea, unspecified] 05-11-2009 Chronic Residual codes; unclassified (1 source) Cardiovascular event risk; Translations: [Other specified personal risk factors, not elsewhere classified] Onset: 06-01-2023 07-02-2023 Episodic Residual codes; unclassified (1 source) Other specified personal risk factors, not elsewhere classified; Translations: [At risk for sudden cardiac ] Onset: 06-01-2023 Episodic Screening or history of mental health and substance abuse (8 sources) Tobacco dependence syndrome; Translations: [Nicotine dependence, unspecified, uncomplicated] Onset: 09-20-2010 09-20-2010 Chronic Unclassified (15 sources) Body mass index (BMI) 31.0-31.9, adult; Translations: [Body mass index (BMI) 32.0-32.9, adult] Onset: 06-02-2013 06-02-2013 Chronic Unclassified (7 sources) Implantation of automatic cardiac defibrillator ; Translations: [Presence of automatic (implantable) cardiac defibrillator] Onset: 09-20-2010 09-20-2010 Unclassified (5 sources) Long-term drug therapy; Translations: [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) drug therapy] Onset: 09-20-2010 09-20-2010 Past or Other Problems Problem Classification Problem Date Documented Date Episodic/Chronic Hemorrhoids (1 source) Internal hemorrhoids; Translations: [Other hemorrhoids] Onset: 06-29-2009 06-29-2009 Episodic Nonspecific chest pain (7 sources) Chest pain, unspecified; Translations: [Chest pain, unspecified] Onset: 09-20-2010 09-20-2010 Episodic Other aftercare (2 sources) Other retirement (current) drug therapy; Translations: [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) drug therapy] Onset: 09-20-2010 09-20-2010 Episodic Other and unspecified benign neoplasm (1 source) Benign neoplasm of colon; Translations: [Benign neoplasm of colon, unspecified] Onset: 06-29-2009 06-29-2009 Episodic Other circulatory disease (7 sources) Abnormal result of cardiovascular function study, unspecified; Translations: [Abnormal result of cardiovascular function study, unspecified] Onset: 09-20-2010 09-20-2010 Episodic Other screening for suspected conditions (not mental disorders or infectious disease) (1 source) Patient encounter status; Translations: [Encounter for screening for malignant neoplasm of colon] Onset: 06-29-2009 06-29-2009 Episodic Unclassified (15 sources) Family history of stroke; Translations: [FH: Hypertension] Onset: 06-02-2013 12-29-2013 Episodic Results Test Name Value Interpretation Reference Range Facil ity Vital Signs Date Time Vital Sign Value Performing Clinician Sarbjit sotelo 03-31-2017 08:55-0500 BMI (Body Mass Index) 34.44 kg/m2 [facility] Work Phone: 03-31-2017 08:55-0500 BP Diastolic 90 mm[Hg] [facility] Work Phone: 03-31-2017 08:55-0500 BP Systolic 140 mm[Hg] [facility] Work Phone: 03-31-2017 08:55-0500 Height 193.04 cm [facility] Work Phone: 03-31-2017 08:55-0500 Pulse (Heart Rate) 72 /min [facility] Work Phone: 03-31-2017 08:55-0500 Respiratory Rate 20 /min [facility] Work Phone: 03-31-2017 08:55-0500 Weight 128.37 kg [facility] Work Phone: 09-11-2016 08:56-0400 BMI (Body Mass Index) 34.32 kg/m2 Jaden Ndiaye MD [facility] Work Phone: 09-11-2016 08:56-0400 BP Diastolic 84 mm[Hg] Jaden Ndiaye MD [facility] Work Phone: 09-11-2016 08:56-0400 BP Systolic 110 mm[Hg] Jaden Ndiaye MD [facility] Work Phone: 09-11-2016 08:56-0400 Height 193.04 cm Jaden Ndiaye MD [facility] Work Phone: 09-11-2016 08:56-0400 Pulse (Heart Rate) 74 /min [facility] Work Phone: 09-11-2016 08:56-0400 Respiratory Rate 16 /min Jaden Ndiaye MD [facility] Work Phone: 09-11-2016 08:56-0400 Weight 127.92 kg Jaden Ndiaye MD [facility] Work Phone: 03-08-2016 09:01-0400 BSA (Body Surface Area) 2.58 m2 Jaden Ndiaye MD [facility] Work Phone: Encounters Encounter Date Encounter Type Care Provider Facility Start: 07-02-2023 Telephone encounter Zaheer jensen MD Work Phone: [facility] Procedures Date Procedure Procedure Detail Performing Clinician Start: 07-02-2023 Antibody screen MELANIA COONEY Plan of Treatment Date Care Activity Detail Author Start: 07-02-2026 Diabetes Screening Diabetes Screening [facility] Start: 05-26-2023 Advance Directive Discussion Advance Directive Discussion [facility] Start: 05-26-2023 Depression Assessment Depression Assessment [facility] Start: 01-24-2023 Covid-19 Vaccine () Covid-19 Vaccine () [facility] Start: 01-24-2023 Influenza vaccination Influenza Vaccine (#1) [facility] Start: 03-31-2022 Lipid panel Lipid Screening [facility] Start: 06-29-2019 Screening for malignant neoplasm of colon [facility] Start: 09-29-2017 End: 04-04-2017 *Hepatic Function Panel *Hepatic Function Panel [facility] Work Phone: Start: 09-29-2017 End: 04-04-2017 Lipid panel [AGGREGATE] *Lipid Profile CC PCP [facility] Work Phone: Start: 09-29-2017 End: 09-29-2017 Appointment Appointment [facility] Work Phone: Start: 03-31-2017 End: 03-31-2017 *Hepatic Function Panel *Hepatic Function Panel [facility] Work Phone: Start: 03-31-2017 End: 03-31-2017 Follow Up Appt 6 months Follow Up Appt 6 months [facility] Work Phone: Start: 03-31-2017 End: 03-31-2017 Follow Up Appt Other Follow Up Appt Other [facility] Work Phone: Start: 03-31-2017 End: 03-31-2017 Lipid panel [AGGREGATE] *Lipid Profile CC PCP [facility] Work Phone: Start: 03-31-2017 End: 03-31-2017 Pacer Clinic Pac[facility] Clinic [facility] Work Phone: Start: 03-31-2017 End: 03-31-2017 PFM PFM [facility] Work Phone: Start: 03-31-2017 End: 03-31-2017 Appointment Appointment [facility] Work Phone: Start: 03-31-2017 End: 03-31-2017 Appointment Appointment [facility] Work Phone: Start: 2016 End: 03-31-2017 *Hepatic Function Panel *Hepatic Function Panel [facility] Work Phone: Start: 2016 End: 03-31-2017 Lipid panel [AGGREGATE] *Lipid Profile CC PCP [facility] Work Phone: Start: 2016 End: 10-02-2016 *Hepatic Function Panel *Hepatic Function Panel [facility] Work Phone: Start: 2016 End: 10-02-2016 Lipid panel [AGGREGATE] *Lipid Profile CC PCP [facility] Work Phone: Start: 10-01-2016 End: 10-01-2016 *Hepatic Function Panel *Hepatic Function Panel [facility] Work Phone: Start: 10-01-2016 End: 10-01-2016 Lipid panel [AGGREGATE] *Lipid Profile CC PCP [facility] Work Phone: Start: 10-01-2016 End: 10-01-2016 *Hepatic Function Panel *Hepatic Function Panel [facility] Work Phone: Start: 10-01-2016 End: 10-01-2016 Lipid panel [AGGREGATE] *Lipid Profile CC PCP [facility] Work Phone: Start: 09-11-2016 End: 09-11-2016 Follow Up Appt 3 months Follow Up Appt 3 months [facility] Work Phone: Start: 09-11-2016 End: 09-11-2016 Follow Up Appt Other Follow Up Appt Other [facility] Work Phone: Start: 09-11-2016 End: 09-11-2016 Pacer Clinic Pacer Clinic [facility] Work Phone: Start: 09-11-2016 End: 09-11-2016 PFM PFM [facility] Work Phone: Start: 09-11-2016 End: 09-11-2016 Follow Up Appt 3 months Follow Up Appt 3 months [facility] Work Phone: Start: 09-11-2016 End: 09-11-2016 Follow Up Appt Other Follow Up Appt Other [facility] Work Phone: Start: 09-11-2016 End: 09-11-2016 Pacer Clinic Pacer Clinic [facility] Work Phone: Start: 09-11-2016 End: 09-11-2016 PFM PFM [facility] Work Phone: Start: 06-12-2016 End: 09-02-2016 Follow Up Appt 3 months Follow Up Appt 3 months [facility] Work Phone: Start: 06-12-2016 End: 09-02-2016 Pacer Clinic Pacer Clinic [facility] Work Phone: Start: 06-12-2016 End: 09-02-2016 Follow Up Appt 3 months Follow Up Appt 3 months [facility] Work Phone: Start: 06-12-2016 End: 09-02-2016 Pacer Clinic Pac[facility] Clinic [facility] Work Phone: Start: 04-02-2016 End: 04-03-2016 *BMP *BMP [facility] Work Phone: Start: 04-02-2016 End: 04-03-2016 *BMP *BMP [facility] Work Phone: Start: 03-08-2016 End: 04-02-2016 *Hepatic Function Panel *Hepatic Function Panel [facility] Work Phone: Start: 03-08-2016 End: 03-08-2016 Device Interrogation Device Interrogation [facility] Work Phone: Start: 03-08-2016 End: 03-08-2016 Ecg routine ecg w/least 12 lds w/i&r EKG (In office) [facility] Work Phone: Start: 03-08-2016 End: 03-08-2016 Echocardiography Echocardiogram (complete) [facility] Work Phone: Start: 03-08-2016 End: 09-02-2016 Follow Up Appt 3 months Follow Up Appt 3 months [facility] Work Phone: Start: 03-08-2016 End: 03-08-2016 Follow Up Appt 6 months Follow Up Appt 6 months [facility] Work Phone: Start: 03-08-2016 End: 04-02-2016 Lipid panel [AGGREGATE] *Lipid Profile CC PCP [facility] Work Phone: Start: 03-08-2016 End: 03-08-2016 MMM MMM [facility] Work Phone: Start: 03-08-2016 End: 03-08-2016 Nuclear stress test -Lexiscan Nuclear stress test -Lexiscan [facility] Work Phone: Start: 03-08-2016 End: 09-02-2016 Pacer Clinic Pacer Clinic [facility] Work Phone: Start: 03-08-2016 End: 04-02-2016 *Hepatic Function Panel *Hepatic Function Panel [facility] Work Phone: Start: 03-08-2016 End: 03-08-2016 Device Interrogation Device Interrogation [facility] Work Phone: Start: 03-08-2016 End: 03-08-2016 Echocardiography Echocardiogram (complete) [facility] Work Phone: Start: 03-08-2016 End: 03-08-2016 Electrocardiogram, complete EKG (In office) [facility] Work Phone: Start: 03-08-2016 End: 09-02-2016 Follow Up Appt 3 months Follow Up Appt 3 months [facility] Work Phone: Start: 03-08-2016 End: 03-08-2016 Follow Up Appt 6 months Follow Up Appt 6 months [facility] Work Phone: Start: 03-08-2016 End: 04-02-2016 Lipid panel [AGGREGATE] *Lipid Profile CC PCP [facility] Work Phone: Start: 03-08-2016 End: 03-08-2016 MMM MMM [facility] Work Phone: Start: 03-08-2016 End: 03-08-2016 Nuclear stress test -Lexiscan Nuclear stress test -Lexiscan [facility] Work Phone: Start: 03-08-2016 End: 09-02-2016 Pacer Clinic Pacer Clinic [facility] Work Phone: Start: 11-30-2015 End: 09-02-2016 Follow Up Appt 3 months Follow Up Appt 3 months [facility] Work Phone: Start: 11-30-2015 End: 09-02-2016 Pacer Clinic [facility] Clinic [facility] Work Phone: Start: 11-30-2015 End: 09-02-2016 Follow Up Appt 3 months Follow Up Appt 3 months [facility] Work Phone: Start: 11-30-2015 End: 09-02-2016 Pacer Clinic [facility] Work Phone: Start: 2015 RSV Vaccine (1 - 1-dose 60+ series) RSV Vaccine (1 - 1-dose 60+ series) [facility] Start: 10-26-2015 End: 04-03-2016 *BMP *BMP [facility] Work Phone: Start: 10-26-2015 End: 04-02-2016 *Hepatic Function Panel *Hepatic Function Panel [facility] Work Phone: Start: 10-26-2015 End: 10-26-2015 Follow Up Appt 6 months Follow Up Appt 6 months [facility] Work Phone: Start: 10-26-2015 End: 04-02-2016 Lipid panel [AGGREGATE] *Lipid Profile CC PCP [facility] Work Phone: Start: 10-26-2015 End: 10-26-2015 PFM PFM [facility] Work Phone: Start: 10-26-2015 End: 04-03-2016 *BMP *BMP [facility] Work Phone: Start: 10-26-2015 End: 04-02-2016 *Hepatic Function Panel *Hepatic Function Panel [facility] Work Phone: Start: 10-26-2015 End: 10-26-2015 Follow Up Appt 6 months Follow Up Appt 6 months [facility] Work Phone: Start: 10-26-2015 End: 04-02-2016 Lipid panel [AGGREGATE] *Lipid Profile CC PCP [facility] Work Phone: Start: 10-26-2015 End: 10-26-2015 PFM PFM [facility] Work Phone: Start: 08-22-2015 End: 10-10-2015 Follow Up Appt 3 months Follow Up Appt 3 months [facility] Work Phone: Start: 08-22-2015 End: 10-10-2015 Pacer Clinic Pac[facility] Clinic [facility] Work Phone: Start: 08-22-2015 End: 10-10-2015 Follow Up Appt 3 months Follow Up Appt 3 months [facility] Work Phone: Start: 08-22-2015 End: 10-10-2015 Pacer Clinic [facility] Work Phone: Start: 02-17-2015 End: 10-26-2015 *Hepatic Function Panel *Hepatic Function Panel [facility] Work Phone: Start: 02-17-2015 End: 06-12-2015 Follow Up Appt 3 months Follow Up Appt 3 months [facility] Work Phone: Start: 02-17-2015 End: 07-31-2015 Follow Up Appt 6 months Follow Up Appt 6 months [facility] Work Phone: Start: 02-17-2015 End: 10-26-2015 Lipid panel [AGGREGATE] *Lipid Profile CC PCP [facility] Work Phone: Start: 02-17-2015 End: 07-31-2015 MMM MMM [facility] Work Phone: Start: 02-17-2015 End: 06-12-2015 Pacer Clinic Pac[facility] Work Phone: Start: 02-17-2015 End: 10-26-2015 *Hepatic Function Panel *Hepatic Function Panel [facility] Work Phone: Start: 02-17-2015 End: 06-12-2015 Follow Up Appt 3 months Follow Up Appt 3 months [facility] Work Phone: Start: 02-17-2015 End: 07-31-2015 Follow Up Appt 6 months Follow Up Appt 6 months [facility] Work Phone: Start: 02-17-2015 End: 10-26-2015 Lipid panel [AGGREGATE] *Lipid Profile CC PCP [facility] Work Phone: Start: 02-17-2015 End: 07-31-2015 MMM MMM [facility] Work Phone: Start: 02-17-2015 End: 06-12-2015 Pacer Clinic [facility] Work Phone: Start: 10-11-2014 End: 02-17-2015 Follow Up Appt 3 months Follow Up Appt 3 months [facility] Work Phone: Start: 10-11-2014 End: 02-17-2015 Pacer Clinic Pac[facility] Clinic [facility] Work Phone: Start: 10-11-2014 End: 02-17-2015 Follow Up Appt 3 months Follow Up Appt 3 months [facility] Work Phone: Start: 10-11-2014 End: 02-17-2015 Pacer Clinic Pac[facility] Clinic [facility] Work Phone: Start: 08-18-2014 End: 07-08-2014 *CPKISO - Isoenzyme (CPK) 2154 *CPKISO - Isoenzyme (CPK) 2154 [facility] Work Phone: Start: 08-18-2014 End: 07-08-2014 *Hepatic Function Panel *Hepatic Function Panel [facility] Work Phone: Start: 08-18-2014 End: 07-08-2014 Lipid panel [AGGREGATE] *Lipid Profile CC PCP [facility] Work Phone: Start: 08-18-2014 End: 07-08-2014 *CPKISO - Isoenzyme (CPK) 2154 *CPKISO - Isoenzyme (CPK) 2154 [facility] Work Phone: Start: 08-18-2014 End: 07-08-2014 *Hepatic Function Panel *Hepatic Function Panel [facility] Work Phone: Start: 08-18-2014 End: 07-08-2014 Lipid panel [AGGREGATE] *Lipid Profile CC PCP [facility] Work Phone: Start: 07-12-2014 End: 07-12-2014 Follow Up Appt 6 months Follow Up Appt 6 months [facility] Work Phone: Start: 07-12-2014 End: 07-12-2014 PFM PF [facility] Work Phone: Start: 07-12-2014 End: 07-12-2014 Follow Up Appt 6 months Follow Up Appt 6 months [facility] Work Phone: Start: 07-12-2014 End: 07-12-2014 PFM PFM [facility] Work Phone: Start: 07-07-2014 End: 07-07-2014 *BMP *BMP [facility] Work Phone: Start: 07-07-2014 End: 07-07-2014 *BMP *BMP [facility] Work Phone: Start: 07-05-2014 End: 07-12-2014 Follow Up Appt 3 months Follow Up Appt 3 months [facility] Work Phone: Start: 07-05-2014 End: 07-12-2014 Pacer Clinic Pacer Clinic [facility] Work Phone: Start: 07-05-2014 End: 07-12-2014 Follow Up Appt 3 months Follow Up Appt 3 months [facility] Work Phone: Start: 07-05-2014 End: 07-12-2014 Pacer Clinic Pacer Clinic [facility] Work Phone: Start: 06-26-2014 End: 01-01-2014 *Hepatic Function Panel *Hepatic Function Panel [facility] Work Phone: Start: 06-26-2014 End: 01-01-2014 Lipid panel [AGGREGATE] *Lipid Profile CC PCP [facility] Work Phone: Start: 06-26-2014 End: 01-01-2014 *Hepatic Function Panel *Hepatic Function Panel [facility] Work Phone: Start: 06-26-2014 End: 01-01-2014 Lipid panel [AGGREGATE] *Lipid Profile CC PCP [facility] Work Phone: Start: 03-31-2014 End: 06-30-2014 Follow Up Appt 3 months Follow Up Appt 3 months [facility] Work Phone: Start: 03-31-2014 End: 06-30-2014 Pacer Clinic Pacer Clinic [facility] Work Phone: Start: 03-31-2014 End: 06-30-2014 Follow Up Appt 3 months Follow Up Appt 3 months [facility] Work Phone: Start: 03-31-2014 End: 06-30-2014 Pacer Clinic Pacer Clinic [facility] Work Phone: Start: 01-13-2014 End: 01-13-2014 Vascular Surgery Vascular Surgery [facility] Work Phone: Start: 01-13-2014 End: 01-13-2014 Vascular Surgery Vascular Surgery [facility] Work Phone: Start: 01-01-2014 End: 01-07-2014 *BMP *BMP [facility] Work Phone: Start: 01-01-2014 End: 07-07-2014 Glucose mass conc *Glucose, Fasting [facility] Work Phone: Start: 01-01-2014 End: 01-07-2014 *BMP *BMP [facility] Work Phone: Start: 01-01-2014 End: 07-07-2014 Glucose *Glucose, Fasting [facility] Work Phone: Start: 12-29-2013 End: 12-30-2013 *Hepatic Function Panel *Hepatic Function Panel [facility] Work Phone: Start: 12-29-2013 End: 12-29-2013 Follow Up Appt 3 months Follow Up Appt 3 months [facility] Work Phone: Start: 12-29-2013 End: 12-29-2013 Follow Up Appt 6 months Follow Up Appt 6 months [facility] Work Phone: Start: 12-29-2013 End: 07-07-2014 Follow Up Appt Other Follow Up Appt Other [facility] Work Phone: Start: 12-29-2013 End: 12-30-2013 Lipid panel [AGGREGATE] *Lipid Profile CC PCP [facility] Work Phone: Start: 12-29-2013 End: 12-29-2013 MMM MMM [facility] Work Phone: Start: 12-29-2013 End: 12-29-2013 Pacer Clinic Pacer Clinic [facility] Work Phone: Start: 12-29-2013 End: 12-30-2013 *Hepatic Function Panel *Hepatic Function Panel [facility] Work Phone: Start: 12-29-2013 End: 12-29-2013 Follow Up Appt 3 months Follow Up Appt 3 months [facility] Work Phone: Start: 12-29-2013 End: 12-29-2013 Follow Up Appt 6 months Follow Up Appt 6 months [facility] Work Phone: Start: 12-29-2013 End: 07-07-2014 Follow Up Appt Other Follow Up Appt Other [facility] Work Phone: Start: 12-29-2013 End: 12-30-2013 Lipid panel [AGGREGATE] *Lipid Profile CC PCP [facility] Work Phone: Start: 12-29-2013 End: 12-29-2013 MMM MMM [facility] Work Phone: Start: 12-29-2013 End: 12-29-2013 Pacer Clinic Pacer Clinic [facility] Work Phone: Start: 09-30-2013 End: 06-30-2014 Follow Up Appt 3 months Follow Up Appt 3 months [facility] Work Phone: Start: 09-30-2013 End: 06-30-2014 Pacer Clinic Pac[facility] Clinic [facility] Work Phone: Start: 09-30-2013 End: 06-30-2014 Follow Up Appt 3 months Follow Up Appt 3 months [facility] Work Phone: Start: 09-30-2013 End: 06-30-2014 Pacer Clinic Pacer Clinic [facility] Work Phone: Start: 06-24-2013 End: 06-30-2014 Follow Up Appt 3 months Follow Up Appt 3 months [facility] Work Phone: Start: 06-24-2013 End: 06-30-2014 Pacer Clinic Pacer Clinic [facility] Work Phone: Start: 06-24-2013 End: 06-30-2014 Follow Up Appt 3 months Follow Up Appt 3 months [facility] Work Phone: Start: 06-24-2013 End: 06-30-2014 Pac[facility] Clinic [facility] Work Phone: Start: 06-02-2013 End: 01-01-2014 *Hepatic Function Panel *Hepatic Function Panel [facility] Work Phone: Start: 06-02-2013 End: 06-02-2013 Ecg routine ecg w/least 12 lds w/i&r EKG (In office) [facility] Work Phone: Start: 06-02-2013 End: 06-02-2013 Follow Up Appt 6 months Follow Up Appt 6 months [facility] Work Phone: Start: 06-02-2013 End: 01-01-2014 Lipid panel [AGGREGATE] *Lipid Profile CC PCP [facility] Work Phone: Start: 06-02-2013 End: 06-02-2013 PFM PFM [facility] Work Phone: Start: 06-02-2013 End: 01-01-2014 *Hepatic Function Panel *Hepatic Function Panel [facility] Work Phone: Start: 06-02-2013 End: 06-02-2013 Electrocardiogram, complete EKG (In office) [facility] Work Phone: Start: 06-02-2013 End: 06-02-2013 Follow Up Appt 6 months Follow Up Appt 6 months [facility] Work Phone: Start: 06-02-2013 End: 01-01-2014 Lipid panel [AGGREGATE] *Lipid Profile CC PCP [facility] Work Phone: Start: 06-02-2013 End: 06-02-2013 PFM PFM [facility] Work Phone: Start: 05-31-2013 End: 05-28-2013 *Hepatic Function Panel *Hepatic Function Panel [facility] Work Phone: Start: 05-31-2013 End: 05-28-2013 Lipid panel [AGGREGATE] *Lipid Profile CC PCP [facility] Work Phone: Start: 05-31-2013 End: 05-28-2013 *Hepatic Function Panel *Hepatic Function Panel [facility] Work Phone: Start: 05-31-2013 End: 05-28-2013 Lipid panel [AGGREGATE] *Lipid Profile CC PCP [facility] Work Phone: Start: 01-28-2013 End: 06-02-2013 Follow Up Appt 3 months Follow Up Appt 3 months [facility] Work Phone: Start: 01-28-2013 End: 06-02-2013 Pacer Clinic Pac[facility] Clinic [facility] Work Phone: Start: 01-28-2013 End: 06-02-2013 Follow Up Appt 3 months Follow Up Appt 3 months [facility] Work Phone: Start: 01-28-2013 End: 06-02-2013 Pacer Clinic Pac[facility] Clinic [facility] Work Phone: Start: 10-26-2012 End: 11-03-2012 *BMP *BMP [facility] Work Phone: Start: 10-26-2012 End: 11-03-2012 *Hepatic Function Panel *Hepatic Function Panel [facility] Work Phone: Start: 10-26-2012 End: 10-26-2012 Arterial exam Arterial exam [facility] Work Phone: Start: 10-26-2012 End: 11-03-2012 Digoxin *Digoxin (Drug Assay) [facility] Work Phone: Start: 10-26-2012 End: 11-03-2012 Follow Up Appt 3 months Follow Up Appt 3 months [facility] Work Phone: Start: 10-26-2012 End: 10-26-2012 Follow Up Appt 6 months Follow Up Appt 6 months [facility] Work Phone: Start: 10-26-2012 End: 11-03-2012 Lipid panel [AGGREGATE] *Lipid Profile CC PCP [facility] Work Phone: Start: 10-26-2012 End: 06-02-2013 Pacer Clinic Pacer Clinic [facility] Work Phone: Start: 10-26-2012 End: 10-26-2012 PFM PFM [facility] Work Phone: Start: 10-26-2012 End: 11-03-2012 *BMP *BMP [facility] Work Phone: Start: 10-26-2012 End: 11-03-2012 *Hepatic Function Panel *Hepatic Function Panel [facility] Work Phone: Start: 10-26-2012 End: 10-26-2012 Arterial exam Arterial exam [facility] Work Phone: Start: 10-26-2012 End: 11-03-2012 Digoxin *Digoxin (Drug Assay) [facility] Work Phone: Start: 10-26-2012 End: 11-03-2012 Follow Up Appt 3 months Follow Up Appt 3 months [facility] Work Phone: Start: 10-26-2012 End: 10-26-2012 Follow Up Appt 6 months Follow Up Appt 6 months [facility] Work Phone: Start: 10-26-2012 End: 11-03-2012 Lipid panel [AGGREGATE] *Lipid Profile CC PCP [facility] Work Phone: Start: 10-26-2012 End: 06-02-2013 Pacer Clinic Pacer Clinic [facility] Work Phone: Start: 10-26-2012 End: 10-26-2012 PFM PFM [facility] Work Phone: Start: 09-23-2012 End: 10-26-2012 *Hepatic Function Panel *Hepatic Function Panel [facility] Work Phone: Start: 09-23-2012 End: 10-26-2012 Lipid panel [AGGREGATE] *Lipid Profile [facility] Work Phone: Start: 09-23-2012 End: 10-26-2012 *Hepatic Function Panel *Hepatic Function Panel [facility] Work Phone: Start: 09-23-2012 End: 10-26-2012 Lipid panel [AGGREGATE] *Lipid Profile [facility] Work Phone: Start: 03-30-2012 End: 04-29-2012 *Hepatic Function Panel *Hepatic Function Panel [facility] Work Phone: Start: 03-30-2012 End: 03-30-2012 Device Interrogation Device Interrogation [facility] Work Phone: Start: 03-30-2012 End: 03-30-2012 Follow Up Appt 6 months Follow Up Appt 6 months [facility] Work Phone: Start: 03-30-2012 End: 04-29-2012 Lipid panel [AGGREGATE] *Lipid Profile [facility] Work Phone: Start: 03-30-2012 End: 04-29-2012 *Hepatic Function Panel *Hepatic Function Panel [facility] Work Phone: Start: 03-30-2012 End: 03-30-2012 Device Interrogation Device Interrogation [facility] Work Phone: Start: 03-30-2012 End: 03-30-2012 Follow Up Appt 6 months Follow Up Appt 6 months [facility] Work Phone: Start: 03-30-2012 End: 04-29-2012 Lipid panel [AGGREGATE] *Lipid Profile [facility] Work Phone: Start: 09-23-2011 End: 11-26-2011 *Hepatic Function Panel *Hepatic Function Panel [facility] Work Phone: Start: 09-23-2011 End: 09-23-2011 Device Interrogation Device Interrogation [facility] Work Phone: Start: 09-23-2011 End: 09-23-2011 Follow Up Appt 6 months Follow Up Appt 6 months [facility] Work Phone: Start: 09-23-2011 End: 11-26-2011 Lipid panel [AGGREGATE] *Lipid Profile [facility] Work Phone: Start: 09-23-2011 End: 11-26-2011 *Hepatic Function Panel *Hepatic Function Panel [facility] Work Phone: Start: 09-23-2011 End: 09-23-2011 Device Interrogation Device Interrogation [facility] Work Phone: Start: 09-23-2011 End: 09-23-2011 Follow Up Appt 6 months Follow Up Appt 6 months [facility] Work Phone: Start: 09-23-2011 End: 11-26-2011 Lipid panel [AGGREGATE] *Lipid Profile [facility] Work Phone: Start: 11-10-2010 Prostate specific antigen measurement Prostate Cancer Screening Discussion [facility] Start: 11-10-2005 Shingrix Vaccine (1 of 2) Shingrix Vaccine (1 of 2) [facility] Start: 11-10-2000 Screening for malignant neoplasm of colon [facility] Start: 11-10-1974 Urine microalbumin profile DTaP,Tdap,Td Vaccine (1 - Tdap) [facility] Start: 11-10-1973 Annual PCP Team Chronic Disease Visit Annual PCP Team Chronic Disease Visit [facility] Start: 11-10-1973 BP Controlled (<130/80) BP Controlled (<130/80) [facility] Start: 11-10-1973 Hepatitis C screening Hepatitis C Screening [facility] Start: 11-10-1961 Pneumococcal Vaccine: 65+ (1 of 2 - PCV) Pneumococcal Vaccine: 65+ (1 of 2 - PCV) [facility] Start: 1955 Abdominal aortic aneurysm screening Abdominal Aortic Aneurysm Screening [facility] Patient Education [facility] Work Phone: Immunizations Immunization Date Immunization Notes Care Provider [facility] 05-23-2021 influenza, seasonal, injectable, preservative free Zhaeer Mccloud MD Work Phone: [facility] Work Phone: 05-23-2021 influenza virus vaccine, unspecified formulation Zaheer Mccloud MD Work Phone: [facility] 09-21-2020 COVID-19 original vaccine, full dose, monovalent (MODERNA) Zaheer Mccloud MD Work Phone: [facility] Work Phone: 09-14-2020 COVID-19 original vaccine, full dose, monovalent (MODERNA) Zaheer Mccloud MD Work Phone: [facility] Work Phone: 08-24-2020 COVID-19 original vaccine, full dose, monovalent (MODERNA) Zaheer Mccloud MD Work Phone: [facility] Work Phone: 08-17-2020 COVID-19 original vaccine, full dose, monovalent (MODERNA) Zaheer Mccloud MD Work Phone: [facility] Work Phone: 02-11-2019 influenza, injectabl e, quadrivalent, preservative free Zaheer Mccloud MD Work Phone: [facility] Work Phone: 03-25-2018 influenza, injectabl e, quadrivalent, preservative free Zaheer Mccloud MD Work Phone: [facility] Work Phone: 04-03-2009 influenza virus vaccine, unspecified formulation Zaheer Mccloud MD Work Phone: [facility] Payers Date Payer Category Payer Medicare [id number] 2022 Unknown [facility] MEDIC[facility] ADVANTAGE PPO [id number] 2022-Present [phone] [address] [place] [address] PPO [id number] Social History Date Type Detail Facility Start: 06-06-2023 Tobacco smoking stat us NHIS Occasional tobacco smoker [facility] End: 06-29-2018 History of tobacco use Cigarette Smoker [facility] History of tobacco use Cigar Smoker [facility] Start: 06-06-2023 End: 07-02-2023 Cigarettes smoked current (pack per day) - Reported 0.5 [facility] Start: 06-06-2023 Tobacco use and exposure Smoke less tobacco non-user [facility] Start: 07-02-2023 Alcohol intake Ex-drinker (finding) [facility] Start: 06-06-2023 End: 07-02-2023 Tobacco use panel [facility] National Score (1-10 0), lower number is lower risk 41 [facility] Start: 1955 Sex Assigned At Not on file [facility] Plan of care note 07-03-2023 Note Date & Type Note Facility 07-03-2023 Note HNO ID: [id number] Author: ?, ?, ? Service: Pharmacy Author Type: Slot Service Specialist Type: Plan of Care Filed: 07/03/2023 11:35 Note Text: PHARMACY MEDICATION REVIEW Patient Name: Renetta Jaramillo : 1955 The following medications were updated within the DIRECTOR PRIVATE medication list: Medications ADDED to DIRECTOR PRIVATE medication list naproxen sodium (ALEVE) 220 mg tablet Take 440 mg by mouth two times a day as needed (pain). cholecalciferol (VITAMIN D3) 1,000 unit tab tablet Take 1,000 Units by mouth once daily. glucosam/chond-msm1/C/neal/bor (UQLCPBHRNCP-BBAQH-ZUL COMPLEX ORAL) Take 1 tablet by mouth once daily. hwkifh-ybxznumi-jjtaoyqpey dismutase (NEURIVA DE-STRESS) 100-200-10 mg capsule Take 1 capsule by mouth once daily. Medications CHANGED on DIRECTOR PRIVATE medication list Medications REMOVED from DIRECTOR PRIVATE medication list Additional comments: Verified medication information with e-scripts/dispense report and chart review. Confirmed medications with patient. Patient stated taking naproxen, Vit D, Glucosamine-Chond, and Neuriva - add to med list. Patient stated taking Lasix and lisinopril - found no current fill dates. Required follow up actions for nursing: None The below information represents the best possible medication history: Yes Medication history completed by: Slot Service Specialist: Nayeli Munoz (Child Study Team Director) Source of history: Patient: Reliability of source: Appears reliable, clearly identified: Medication name, Medication dose, Medication route, and Medication frequency, Pharmacy records: e-scripts/dispense report, and [facility] records Medication nonadherence identified: No barriers noted Reconciliation completed: No, pharmacist not yet reviewed Patient interested in Bedside Delivery Services or using OP Pharmacy at discharge? Unable to assess Preferred outpatient pharmacy: e- [id number] [place] [address] - [address] [phone] [id number] Allergies: No Known Allergies Prior to Admission Medications Prescriptions Last Dose Informant Patient Reported? Taking? ATENOLOL 50 MG TAB 07/02/2023 at 0630 Yes Yes Sig: Take 50 mg by mouth two times a day. FUROSEMIDE 40 MG TAB 07/01/2023 at 0700 Yes Yes Sig: Take 40 mg by mouth once daily. Fenofibrate Micronized 130 mg capsule 07/02/2023 at 0630 Yes Yes Sig: Take 1 capsule by mouth every afternoon. LISINOPRIL 20 MG TAB 07/02/2023 at 0630 Yes Yes Sig: Take 20 mg by mouth two times a day. amLODIPine (NORVASC) 10 mg tablet 07/02/2023 at 0630 Yes Yes Sig: Take 1 tablet by mouth every afternoon. aspirin, enteric coated (ASPIRIN, ENTERIC COATED) 81 mg EC tablet 07/01/2023 at 0700 Yes Yes Sig: Take 81 mg by mouth once daily. cholecalciferol (VITAMIN D3) 1,000 unit tab tablet Yes Yes Sig: Take 1,000 Units by mouth once daily. audezv-ttahvexz-hgauwgaufu dismutase (NEURIVA DE-STRESS) 100-200-10 mg capsule Yes Yes Sig: Take 1 capsule by mouth once daily. glucosam/chond-msm1/C/neal/bor (DQRNVEOHJIR-WJFZS-ZBN COMPLEX ORAL) Yes Yes Sig: Take 1 tablet by mouth once daily. metFORMIN ER (GLUMETZA) 500 mg 24 hr tablet 07/02/2023 at 0630 Yes Yes Sig: Take 500 mg by mouth two times a day. naproxen sodium (ALEVE) 220 mg tablet Yes Yes Sig: Take 440 mg by mouth two times a day as needed (pain). potassium chloride 20 mEq TbER 07/01/2023 at 0700 Yes Yes Sig: Take 1 tablet by mouth every afternoon. pravastatin (PRAVACHOL) 80 mg tablet 07/01/2023 at 2100 Yes Yes Sig: Take 80 mg by mouth daily at bedtime. Facility-Administered Medications: None Nayeli Munoz (Child Study Team Director)[id number] 07/03/2023 [facility] Progress note 07-03-2023 Note Date & Type Note Facility 07-03-2023 Note HNO ID: [id number] Author: LAURA ABARCA, ERICH Service: Electrophysiology Author Type: Registered Nurse Type: Progress Notes Filed: 07/03/2023 10:08 Note Text: Device check complete. Stable lead. Teaching reviewed with pt. [facility] Note 07-02-2023 Telephone Encounter - Zaheer Mccloud MD - 07/02/2023 2:42 PM EST Note Date & Type Note Facility 07-02-2023 Miscellaneous Notes Formattin g of this note might be different from the original. [facility] Electrophysiology (EP) Mr. Jaramillo had successful ICD system extraction with replacement of new ICD system today 07/02/2023. He will follow up with [facility] and [facility]. Can someone notify Henna Moy of [facility] (or Dr. Caldwell's office nurse) that Mr. Jaramillo will need wound check and Aquacel dressing removal in about 10 days? Thank you Zaheer Mccloud MD July 02, 2023 2:44 PM documented in this encounter [facility] Clinical Note 07-02-2023 Note Date & Type Note Facility 07-02-2023 Note HNO ID: [id number] Author: SEBAS BENNETT APRN.CRNA Service: Anesthesiology Author Type: Nurse Seismograph Supervisor Type: Anesthesia Procedure Notes Filed: 07/02/2023 11:34 Note Text: ANESTHESIOLOGY PROCEDURE NOTE A-Line General Information Procedure Start Time/Medication Administration: 07/02/2023 11:26 AM Procedure End Time: 07/02/2023 11:29 AM Patient location during procedure: OR Timeout Performed Pre-procedure: timeout performed Consent Obtained: Yes Indications: continuous blood pressure monitoring Staffing Performed by: SOLEDAD Preparation Sterility Preparation: hand hygiene performed prior to procedure, sterile gloves, drapes, and procedure tray, sterile drape used during line insertion, skin prep agent completely dried prior to procedure Site Prep: Chlorhexidine Procedure Details Catheter Size: 20 G Catheter Length: 1.25 in Guidewire Used: Yes Laterality: left Site: radial artery Ultrasound Guided: No Line Secured: Tegaderm and tape Events Events: patient tolerated procedure well with no complications SIGNATURE: Sebas Bennett APRN.CRNA PATIENT NAME: Renetta Jaramillo DATE: July 02, 2023 TIME: 11:33 AM CSN: [id number] [facility] Clinical Note 07-02-2023 Note Date & Type Note Facility 07-02-2023 Note HNO ID: [id number] Author: SEBAS BENNETT APRN.CRNA Service: Anesthesiology Author Type: Nurse Seismograph Supervisor Type: Anesthesia Procedure Notes Filed: 07/02/2023 10:08 Note Text: ANESTHESIOLOGY PROCEDURE NOTE Airway General Information Procedure Start Time/Medication Administration: 07/02/2023 9:49 AM Patient location during procedure: OR Timeout Performed Pre-procedure: timeout performed Consent Obtained: Yes Patient identity confirmed: arm band Staffing Performed by: SOLEDAD Indications and Patient Condition Indications for airway management: anesthesia Preoxygenated: yes anesthesia circuit Patient position: sniffing Method: asleep Difficult Mask: No Final Airway Details Final airway type: endotracheal airway Final Endotracheal Airway: ETT Cuffed: yes Successful intubation technique: direct laryngoscopy Endotracheal tube insertion site: oral Blade: Rainey Blade size: #2 ETT size (mm): 8.0 Measured from: lips Measurement (cm): 24 Placement verified by: capnometry Cormack-Lehane Classification: grade I - full view of glottis Number of attempts at approach: 1 Airway not difficult SIGNATURE: Sebas Bennett APRN.CRNA PATIENT NAME: Renetta Jaramillo DATE: July 02, 2023 TIME: 10:07 AM CSN: [id number] [facility] Progress note 06-06-2023 Note Date & Type Note Facility 06-06-2023 Note HNO ID: [id number] Author: ZAHEER MCCLOUD MD Service: ? Author Type: Physician Type: Progress Notes Filed: 06/11/2023 21:46 Note Text: PRIMARY CARE PHYSICIAN: Melania Castillo [address] [facility] [address] [place] [address] REFERRING PHYSICIAN: Abdi Caldwell MD ([facility]) [address] [facility] [address] [facility] [address] Patient Care Team: Melania Castillo MD as PCP - General (Internal Medicine) [facility]ition[facility] (Cardiology) Abdi Caldwell MD as Specialty Master Merchandiser (Cardiology) CHIEF COMPLAINT: Evaluation of ICD HISTORY OF PRESENT ILLNESS: Mr. Jaramillo is a 67 year old male who presents today for evaluation of his implantable cardioverter defibrillator (ICD). He had his first ICD in 2004 for primary prevention, a Guidant ([employer]) single-chamber system. After 18 months (October 2005) he had an issue with the ICD, he calls it a defective diode and the ICD was prematurely replaced. Then he underwent routine generator change in 2010. He has never been aware of any shocks from the ICD, or being told that he had a shock. He has not had any problems with the ICD implant site, such as pain, swelling, drainage. He has unfortunately developed a problem with the ICD system RV lead, with progressively increasing high voltage impedances. There is concern from [employer] technical support that the system might not function properly (that is, successfully defibrillate a life-threatening ventricular arrhythmia). Mr. Jaramillo is referred to me to be considered for RV lead removal (extraction) and replacement with a new lead. The ICD generator would also be changed, as it is close to elective replacement indicator (LORETTA). Mr. Jaramillo states he has been hearing audible tones from the ICD, which could represent a warning that LORETTA has been reached, or perhaps the alarms are for the high voltage impedances. The most recent ICD interrogation report from [facility] is dated from the end of February, and LORETTA was estimated to be within 3 months. I have confirmed and edited as necessary, the PFSH and ROS obtained by others. PAST MEDICAL HISTORY Diagnosis Date Anxiety 08/31/2018 Arthritis 08/31/2018 At risk for sudden cardiac Atherosclerosis of [place] artery of both lower extremities with intermittent claudication (HCC) 08/31/2018 Benign neoplasm of colon Cardiomyopathy (HCC) 08/31/2018 Chronic systolic (congestive) heart failure (HCC) Essential hypertension 08/31/2018 Intermittent claudication of both lower extremities due to atherosclerosis (HCC) 08/31/2018 Malfunction of implantable cardioverter-defibrillator (ICD), initial encounter Mixed hyperlipidemia 08/31/2018 PAD (peripheral artery disease) ([facility]) Presence of implantable cardioverter-defibrillator (ICD) [employer] single-chamber ICD Sleep apnea PAST SURGICAL HISTORY Procedure Laterality Date BASIC ICD SINGLE CHAMBER Left 10/07/2004 single-chamber Guidant ([employer]) ICD system for primary prevention; [facility] Dr. Louise BYP OTH/THN VEIN FEMORAL-FEMORAL 2004 CHG ICD SINGLE GENERATOR 11/08/2010 [employer] single-chamber ICD generator change CHG ICD SINGLE GENERATOR Left 10/28/2005 Guidant single-chamber ICD generator change; [facility] Dr. Louise COLONOSCOPY W/BIOPSY SINGLE/MULTIPLE 06/29/2009 repair abdomen after injury REPAIR CARDIAC WOUND W/CARDIOPULMONARY BYPASS TONSILLECTOMY PRIMARY/SECONDARY Tonsillectomy SOCIAL HISTORY Social History Tobacco Use Smoking status: Some Days Packs/day: 0.50 Years: 20.00 Additional pack years: 0.00 Total pack years: 10.00 Types: Cigars, Cigarettes Last attempt to quit: 06/29/2018 Years since quittin.9 Smokeless tobacco: Never Substance Use Topics Alcohol use: Not Currently Drug use: Yes Types: Marijuana Comment: occasionally FAMILY HISTORY Problem Relation Age of Onset None Other Aneurysm Brother cerebral aneurysm ALLERGIES: ALLERGIES No Known Allergies MEDICATIONS: metFORMIN ER (GLUMETZA) 500 mg 24 hr tablet Take 500 mg by mouth two times a day. amLODIPine (NORVASC) 10 mg tablet Take 1 tablet by mouth every afternoon. Fenofibrate Micronized 130 mg capsule Take 1 capsule by mouth every afternoon. aspirin, enteric coated (ASPIRIN, ENTERIC COATED) 81 mg EC tablet Take 81 mg by mouth once daily. ATENOLOL 50 MG TAB Take one(1) tablet two(2) times daily. FUROSEMIDE 40 MG TAB Take one(1) tablet daily. LISINOPRIL 20 MG TAB Take one(1) tablet two(2) times daily. potassium chloride(K-DUR 20 MEQ TAB) Take one(1) tablet daily. omeprazole(PRILOSEC 20 MG CAP) Take one(1) tablet daily. pravastatin (PRAVACHOL) 80 mg tablet Take 80 mg by mouth daily at bedtime. REVIEW OF SYSTEMS: Review of Systems Constitutional: Negative for chills, fever and malaise/fatigue. Respiratory: Positive for shortness of breath. Negative for cough, hem (more content not included)... [facility] Clinical Note 04-20-2021 Note Date & Type Note Facility 04-20-2021 Note Patient Outreach (HONORIO BOYER) RENETTA JARAMILLO ([id number]) 1955 M Date Time Provider Department 04/20/21 NEO BROOKS During your visit today, we recorded the following information about you: Neo Brooks Population Health Navigator 04/20/2021 10:54 AM Signed POPULATION HEALTH NAVIGATION OUTREACH Action/FYI I left a voice message re: pcp No care everywhere Contact made with patient or family member? NO Pt identified by name and : NO Outreach Outcome/Action Unable to reach patient: Left message Reason for Outreach Attribution: Provider Off-boarding Payer: Payor: MEDICARE / Plan: MEDICARE A AND B / Product Type: Medicare / Care Gap Reviewed:: Reminder: Reminder note to check Health Maintenance for items below Health Maintenance items due: ABDOMINAL AORTIC ANEURYSM SCREENING Never done DEPRESSION SCREENING Never done COVID-19 VACCINE(1) Never done ANNUAL PCP TEAM CHRONIC DISEASE VISIT Never done HEPATITIS C SCREENING Never done HIV SCREENING Never done BP CONTROLLED (<130/80) Never done DTAP,TDAP,TD(1 - Tdap) Never done LIPID SCREEN Never done SHINGRIX VACCINE(1 of 2) Never done PROSTATE CANCER SCREENING DISCUSSION Never done DIABETES SCREEN due on 04/03/2012 COLORECTAL CANCER SCREENING due on 06/29/2019 ADVANCE DIRECTIVE DISCUSSION Never done PNEUMOVAX AGE 65 AND OVER WITH 5YR LOOKBACK(1) Never done INFLUENZA(1) due on 01/24/2021 Advanced Directives Completed: Have you ever planned for future healthcare decisions with a power of transactional attorney, living will, or advance directives? No. Please bring a copy to your next appointment or email to [email or web address] Referrals: N/A Message Sent to Practice: NO Navigation Signature: Noe Brooks Population Health Navigator April 20, 2021 10:53 AM Allergies As of Date: 04/20/2021 (No Known Allergies) Date Reviewed: 07/12/2019 Reviewed by: Jovana Pascual - Fully Assessed Reason for Visit: Population Health Navigation Outreach [[id number]] Cmt: Offboarding Prescriptions as of 04/20/2021 - ATENOLOL 50 MG TAB Take one(1) tablet two(2) times daily. - FUROSEMIDE 40 MG TAB Take one(1) tablet daily. - LISINOPRIL 20 MG TAB Take one(1) tablet two(2) times daily. - GEMFIBROZIL 600 MG TAB Take one(1) tablet twice daily. - ASPIRIN 325 MG TAB Take one(1) tablet daily. - simvastatin(ZOCOR 40 MG TAB) Take one(1) tablet daily at bedtime. - potassium chloride(K-DUR 20 MEQ TAB) Take one(1) tablet daily. - omeprazole(PRILOSEC 20 MG CAP) Take one(1) tablet daily. - DIGOXIN 250 MCG TAB Take one(1) tablet daily. Problem List As Of Date 04/20/2021 Noted Resolved CHF (Congestive Heart Failure) [I50.9] PAD (Peripheral Artery Disease) [I73.9] Sleep Apnea [G47.30] Special Screening for Malignant Neoplasms, [place]*06/29/2009 Benign Neoplasm of Colon [D12.6] 06/29/2009 Internal Hemorrhoids without Mention of Complic*06/29/2009 Mixed hyperlipidemia [E78.2] 08/31/2018 Cardiomyopathy (HCC) [I42.9] 08/31/2018 Intermittent claudication of both lower extremi*08/31/2018 Essential hypertension [I10] 08/31/2018 Anxiety [F41.9] 08/31/2018 Arthritis [M19.90] 08/31/2018 Atherosclerosis of [place] artery of both lower *08/31/2018 Encounter Status:Closed by CECILIA POPULATION HEALTH NAVIGATORNEO on 04/20/21 [facility] Progress note 04-20-2021 Note Date & Type Note Facility 04-20-2021 Note HNO ID: [id number] Author: Neo Daniel Cecilia Population Health Navigator Service: ? Author Type: ? Type: Progress Notes Filed: 04/20/2021 10:54 AM Note Text: POPULATION HEALTH NAVIGATION OUTREACH Action/FYI I left a voice message re: pcp No care everywhere Contact made with patient or family member? NO Pt identified by name and : NO Outreach Outcome/Action Unable to reach patient: Left message Reason for Outreach Attribution: Provider Off-boarding Payer: Payor: MEDICARE / Plan: MEDICARE A AND B / Product Type: Medicare / Care Gap Reviewed:: Reminder: Reminder note to check Health Maintenance for items below Health Maintenance items due: ABDOMINAL AORTIC ANEURYSM SCREENING Never done DEPRESSION SCREENING Never done COVID-19 VACCINE(1) Never done ANNUAL PCP TEAM CHRONIC DISEASE VISIT Never done HEPATITIS C SCREENING Never done HIV SCREENING Never done BP CONTROLLED (<130/80) Never done DTAP,TDAP,TD(1 - Tdap) Never done LIPID SCREEN Never done SHINGRIX VACCINE(1 of 2) Never done PROSTATE CANCER SCREENING DISCUSSION Never done DIABETES SCREEN due on 04/03/2012 COLORECTAL CANCER SCREENING due on 06/29/2019 ADVANCE DIRECTIVE DISCUSSION Never done PNEUMOVAX AGE 65 AND OVER WITH 5YR LOOKBACK(1) Never done INFLUENZA(1) due on 01/24/2021 Advanced Directives Completed: Have you ever planned for future healthcare decisions with a power of transactional attorney, living will, or advance directives? No. Please bring a copy to your next appointment or email to Referrals: N/A Message Sent to Practice: NO Navigation Signature: Neo Brooks Population Health Navigator April 20, 2021 10:53 AM [facility] Progress note 08-29-2020 Note Date & Type Note Facility 08-29-2020 Note HNO ID: [id number] Author: Jazmine Heller MA Service: ? Author Type: Harvest Crew Supervisor Type: Progress Notes Filed: 08/29/2020 5:41 PM Note Text: Care Gap Reviewed: Follow-up appointment Phone call placed to patient. Pt identified by name and : NO Outreach Outcome/Action: Unable to reach patient: Left message If patient deferred or declined to schedule appointment, please indicate the reason(s): Other Jazmine Heller [facility] Clinical Note 08-29-2020 Note Date & Type Note Facility 08-29-2020 Note Patient Outreach ([facility]) RENETTA JARAMILLO ([id number]) 1955 M Date Time Provider Department 08/29/20 JAZMINE HELLER During your visit today, we recorded the following information about you: Jazmine Heller MA 08/29/2020 5:41 PM Signed Care Gap Reviewed: Follow-up appointment Phone call placed to patient. Pt identified by name and : NO Outreach Outcome/Action: Unable to reach patient: Left message If patient deferred or declined to schedule appointment, please indicate the reason(s): Other Jazmine Heller Allergies As of Date: 08/29/2020 (No Known Allergies) Date Reviewed: 07/12/2019 Reviewed by: Jovana Pascual - Fully Assessed Reason for Visit: Appointment [186] Cmt: HTN Prescriptions as of 08/29/2020 Sig: * ATENOLOL 50 MG TABLET Take one(1) tablet two(2) yasmany* * FUROSEMIDE 40 MG TABLET Take one(1) tablet daily. * LISINOPRIL 20 MG TABLET Take one(1) tablet two(2) yasmany* * GEMFIBROZIL 600 MG TABLET Take one(1) tablet twice waldo* * ASPIRIN 325 MG TABLET Take one(1) tablet daily. * ZOCOR 40 MG TABLET Take one(1) tablet daily at b* * K-DUR 20 MEQ TABLET,EXTENDED * Take one(1) tablet daily. * PRILOSEC 20 MG CAPSULE,DELAYE* Take one(1) tablet daily. * DIGOXIN 250 MCG (0.25 MG) TAB* Take one(1) tablet daily. Problem List As Of Date 08/29/2020 Noted Resolved CHF (Congestive Heart Failure) [I50.9] PAD (Peripheral Artery Disease) [I73.9] Sleep Apnea [G47.30] Special Screening for Malignant Neoplasms, [place]*06/29/2009 Benign Neoplasm of Colon [D12.6] 06/29/2009 Internal Hemorrhoids without Mention of Complic*06/29/2009 Mixed hyperlipidemia [E78.2] 08/31/2018 Cardiomyopathy (HCC) [I42.9] 08/31/2018 Intermittent claudication of both lower extremi*08/31/2018 Essential hypertension [I10] 08/31/2018 Anxiety [F41.9] 08/31/2018 Arthritis [M19.90] 08/31/2018 Atherosclerosis of [place] artery of both lower *08/31/2018 Encounter Status:Closed by JAZMINE HELLER MA on 08/29/20 [facility] Summary Purpose Family History No Family History Records FoundNo Family History Records Found Advance Directives No Advanced Directives Records FoundNo Advanced Directives Records Found Additional Source Comments (unrecognized sect ion and content) No Status Records FoundNo Status Records Found INFORMATION SOURCE (unrecogn ized section and content) DATE CREATED AUTHOR AUTHOR'S ORGANIZ ATION 07/04/2023 [facility] Source Comments (unrecognize d section and content) In the event this informatio n is protected by the Federal Confidentiality of Alcohol and Drug Abuse Patient Records regulations: The Federal rules restrict any use of the information to criminally investigate or prosecute any alcohol or drug abuse patient.[facility] Reason for Visit (unrecogniz ed section and content) Care Teams (unrecognized sec tion and content) FOR RECORDS PERTAINING TO PATIENTS WHO ARE OR HAVE BEEN ENROLLED IN A CHEMICAL DEPENDENCY/SUBSTANCEABUSE PROGRAM, SOME INFORMATION MAY BE OMITTED. This clinical summary was aggregated from multiple sources. Caution should be exercised in using it in the provision of clinical care. This summary normalizes information from multiple sources, and as a consequence, information in this document may materially change the coding, format and clinical context of patient data. In addition, data may be omitted in some cases. CLINICAL DECISIONS SHOULD BE BASED ON THE PRIMARY CLINICAL RECORDS. [facility] [employer] [facility]. provides no warranty or guarantee of the accuracy or completeness of information in this document.
[2023-07-14 19:30] VITALS: BP 127/68; PULSE 86; RESP 18; TEMP 36.5; O2SAT 100; BMI 31.7
[2023-07-14] MEDS: APIXABAN 5 MG TABLET 10 MG PO (19:33)
--- NOTE | 2023-08-01 17:17 | EDS_ITS ---
HPI History of Present Illness Chief Complaint: Lower Extremity Injury Informant: patient and spouse/S.O. Narrative Narrative: Patient is a 67-year-old male with history of PFSH PFSH Medical History Anxiety Arthritis Bilateral pulmonary embolism Cardiology follow-up encounter Cardiomyopathy, dilated Chronic systolic congestive heart failure Depression Diabetes mellitus, new onset Essential hypertension Former smoker Gastric reflux High cholesterol History of pacemaker Implantable cardioverter-defibrillator (ICD) at end of battery life Insulin dependent diabetes mellitus Leg cramps Marijuana use NION (obstructive sleep apnea) Peripheral vascular disease Pulmonary embolism Pure hypercholesterolemia Wears dentures Wears glasses Home Medications HANDICAP PLACARD #1 ea 03/09/20 [Rx Last Taken Unknown] blood sugar diagnostic (Freestyle InsuLinx strips) #10 ea 05/25/21 [Rx Last Taken Unknown] blood-glucose meter #1 ea 05/25/21 [Rx Last Taken Unknown] aspirin 81 mg chewable tablet 81 mg PO DAILY 06/12/21 [History Last Taken Unknown] pen needle, diabetic 29 gauge x 1/2 (1st Tier Unifine Pentips) #100 ea 01/30/22 [Rx Last Taken Unknown] insulin glargine 100 unit/mL (3 mL) subcutaneous pen 10 unit (0.1 mL) subcut QPM #15 mL 08/12/22 [Rx Last Taken Unknown] lisinopril 20 mg tablet See Rx Instructions .Route .COMPLEX #180 tabs 09/09/22 [Rx Last Taken Unknown] amlodipine 10 mg tablet 10 mg PO DAILY #90 tabs 12/02/22 [Rx Last Taken Unknown] metformin 500 mg tablet 500 mg PO BID #180 tabs 12/02/22 [Rx Last Taken Unknown] fenofibrate micronized 130 mg capsule See Rx Instructions .Route .COMPLEX #90 caps 12/20/22 [Rx Last Taken Unknown] furosemide 40 mg tablet 40 mg PO QDAY #90 tabs 12/20/22 [Rx Last Taken Unknown] atenolol 50 mg tablet 50 mg PO BID #180 tabs 03/25/23 [Rx Last Taken Unknown] pravastatin 80 mg tablet 80 mg PO QHS #90 tabs 03/25/23 [Rx Last Taken Unknown] potassium chloride 20 mEq tablet,extended release 20 meq PO QDAY #90 tabs 06/24/23 [Rx Last Taken Unknown] apixaban 5 mg (74 tabs) tablets in a dose pack (Eliquis DVT-PE Treat 30D Start) 5 mg PO BID #74 tabs 07/14/23 [Rx Last Taken Unknown] Allergy/AdvReac Type Severity Reaction Status Date / Time No Known Allergies Allergy Verified 07/21/23 09:06 Family History Father Heart disease CVA (cerebral vascular accident) Mother Hypertension Surgical History H/O colonoscopy History of implantable cardiac defibrillator (ICD) History of tonsillectomy Presence of cardiac defibrillator (11/08/10) Social History Smoking Status: Former smoker Smokeless tobacco user: other alcohol intake: current alcohol intake frequency: a few times a month substance use type: marijuana caffeine: Yes Type: carbonated beverages Number of servings: 2 and coffee Number of servings: 2 MDM MDM Radiography Diagnostic Testing: Clinical Impression(s) from Imaging Studies Venous Duplex 07/14/23 18:38 IMPRESSION: Lower leg not imaged. Otherwise no DVT. Electronically Signed: Brendan Suárez MD at 20:13 EST Reading Location ID and State: [address] [place] [address] Tel , Service support , ADDENDUM: 08/01/23 1708 IMPRESSION: Extensive DVT right leg extending from the common femoral vein through the superficial femoral vein, popliteal, posterior tibial and peroneal veins. 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 Instructions: ED Deep Vein Thrombosis (DVT) Prescriptions: New Brennen DVT-PE Treat 30D Start 5 mg (74 tabs) tablets,dose pack 5 mg PO BID Qty: 74 0RF No Action aspirin 81 mg tablet,chewable 81 mg PO DAILY (DME) blood-glucose meter Kit See Rx Instructions .ROUTE .MEDSUPPLY Qty: 1 0RF Rx Instructions: As directed (DME) Freestyle InsuLinx Strip See Rx Instructions .ROUTE .MEDSUPPLY Qty: 10 0RF Rx Instructions: As directed (DME) HANDICAP PLACARD See Rx Instructions .Route .MEDSUPPLY Qty: 1 0RF Rx Instructions: As directed (DME) pen needle, diabetic [1st Tier Unifine Pentips] 29 gauge x 1/2 needle See Rx Instructions .Route Qty: 100 3RF Rx Instructions: As directed to administer insulin twice daily insulin glargine 100 unit/mL (3 mL) insulin pen 10 unit subcut QPM Qty: 15 5RF lisinopril 20 mg tablet See Rx Instructions .ROUTE .COMPLEX Qty: 180 3RF Dose Instruction: TAKE 1 TABLET BY MOUTH TWICE A DAY Rx Instructions: TAKE 1 TABLET BY MOUTH TWICE A DAY amlodipine 10 mg tablet 10 mg PO DAILY Qty: 90 4RF metformin 500 mg tablet 500 mg PO BID Qty: 180 3RF fenofibrate micronized 130 mg capsule See Rx Instructions .ROUTE .COMPLEX Qty: 90 3RF Dose Instruction: TAKE 1 CAPSULE DAILY Rx Instructions: TAKE 1 CAPSULE DAILY furosemide 40 mg tablet 40 mg PO QDAY Qty: 90 3RF atenolol 50 mg tablet 50 mg PO BID Qty: 180 4RF pravastatin 80 mg tablet 80 mg PO QHS Qty: 90 3RF potassium chloride 20 mEq tablet extended release 20 meq PO QDAY Qty: 90 3RF Primary Care Provider: Sadia Norwood Referrals: Sadia Norwood MD [Primary Care Provider] - 1-2 Weeks Disposition Disposition: Home, Self Care Discharge Date/Time: 07/14/23 19:35
== END 2023-07-14 19:35 | disposition home or self-care (01) ==
PROVIDERS: Emergency Provider Emergency Medicine; PCP Internal Medicine; Visit Provider Emergency Medicine
DX: I80.221 Phlebitis and thrombophlebitis of right popliteal vein (principal); I11.0 Hypertensive heart disease with heart failure; I42.0 Dilated cardiomyopathy; I50.22 Chronic systolic (congestive) heart failure; Z79.4 Long term (current) use of insulin; E10.9 Type 1 diabetes mellitus without complications; Z87.891 Personal history of nicotine dependence; E78.00 Pure hypercholesterolemia, unspecified; G47.33 Obstructive sleep apnea (adult) (pediatric); Z79.82 Long term (current) use of aspirin; Z79.899 Other long term (current) drug therapy; Z79.84 Long term (current) use of oral hypoglycemic drugs; Z95.810 Presence of automatic (implantable) cardiac defibrillator
CPT/HCPCS: 93971; 99283

== ENCOUNTER → 2023-07-22 | Outpatient (CLI) | payer MEDICARE, SELFPAY ==
--- NOTE | 2023-07-22 09:58 | VDLE_ITS ---
Reason For Study: RLE Swelling RIGHT LEFT GSV ankle to mid thigh is compressible. GSV CFV is compressible, spontaneous, phasic, mid thigh to SFJ is dilated and competent, and demonstrates normal NONCOMPRESSIBLE. augmentation. Acute deep vein thrombosis is noted in the EIV. It is dilated and NONCOMPRESSIBLE. Acute deep vein thrombosis is noted in the CFV. It is dilated and NONCOMPRESSIBLE. Acute deep vein thrombosis is noted in the FV. It is dilated and NONCOMPRESSIBLE. Acute deep vein thrombosis is noted in the POP V. It is dilated and NONCOMPRESSIBLE. Acute deep vein thrombosis is noted in the T/P Trunk. It is dilated and NONCOMPRESSIBLE. Acute deep vein thrombosis is noted in the PTV. It is dilated and NONCOMPRESSIBLE. Acute deep vein thrombosis is noted in the Per V. It is dilated and NONCOMPRESSIBLE. Procedure This is a venous duplex using B-mode, color flow and spectral Doppler. Exam performed in department. The exam was diagnostic. A preliminary report was called and/or faxed to Dr. Norwood. VL/Venous Duplex US, Unilateral Interpretation Summary Acute deep vein thrombosis is noted in the right external iliac vein, common fe moral vein, femoral vein, femoral vein, popliteal vein, tibioperoneal trunk vein, posterior tibial vein, peroneal vein. Acute superficial vein thrombosis noted in the right great saphenous vein. Ordering Physician: Sadia Norwood Referring Physician: Sadia Norwood Performed By: Parag Vasquez RVT
== END | disposition home or self-care (01) ==
PROVIDERS: PCP Internal Medicine; Referring Provider Internal Medicine; Visit Provider Internal Medicine
DX: M79.662 Pain in left lower leg (principal)
CPT/HCPCS: 93971

== ENCOUNTER → 2023-08-14 | Outpatient (CLI) | payer MEDICARE, SELFPAY ==
[2023-08-14 09:55] LABS: Absolute Lymphocyte Count 1.29 X10^3/uL (0.83-4.51); Basophil# 0.05 X10^3/uL; Basophil% 0.8 % (0-1); Eosinophil# 0.21 X10^3/uL; Eosinophils% 3.4 % (0-5); Hematocrit 45.3 % (40-54); Lymphocyte # 1.29 X10^3/ul (0.83-4.51); Mean Corp Hgb Conc 33.1 g/dL (32-36); Mean Corpuscular Hgb 31.1 pg (27.0-32.0); Mean Corpuscular Volume 93.8 fL (80-94); Monocyte# 0.51 X10^3/uL; Monocyte% 8.3 % (0-10); NRBC Flagged by Analyzer 0 % (0-5); Neutrophil # 4.02 X10^3/uL (2.7-7.7); Neutrophil % 65.5 % (47-70); Platelet Count 222 K/mm3 (150-450); RBC Distribution Width CV 12.7 % (11.6-14.6); RBC Distribution Width SD 43.7 fl (35.1-43.9); Red Blood Count 4.83 M/mm3 (4.6-6.2); White Blood Count 6.1 K/mm3 (4.4-11.0)
[2023-08-14 10:22] LABS: Vitamin D,25 Hydroxy 34.1 ng/mL
[2023-08-14 11:27] LABS: AST(SGOT) 20 U/L (15-37); Alanine Aminotransfer ALT/SGPT 23 U/L (16-61); Albumin, Serum 3.9 g/dL (3.2-5.0); Alkaline Phosphatase 56 U/L (45-117); Anion Gap 8 (5-15); BUN 23 mg/dL (7-18); BUN/Creat Ratio 21.7 RATIO (10-20); Calcium,Total 9.7 mg/dL (8.5-10.1); Chloride 102 mmol/L (98-107); Cholesterol 159 mg/dL (200); Creatinine, Serum 1.06 mg/dL (0.70-1.30); EST Glomerular Filtration Rate 74 mL/min (>60); Est Glom Filt Rate - Afr Amer 89 mL/min (>60); Globulin 3.9 g/dL (2.2-4.2); Glucose 193 mg/dL (74-106); High Density Lipoprotein 32 mg/dL; PSA,Total - Annual Screen 1.17 ng/mL (0.00-4.00); Potassium 4.2 mmol/L (3.5-5.1); Protein, Total 7.8 g/dL (6.4-8.2); Sodium Level 134 mmol/L (136-145); Thyroid Stim Hormone (TSH) 0.67 uIU/mL (0.358-3.74); Triglycerides 275 mg/dL; Very Low Density Lipoprotein 55 mg/dL (5-40)
== END | disposition home or self-care (01) ==
LOC: LAB 09:24
PROVIDERS: PCP Internal Medicine; Referring Provider Internal Medicine; Visit Provider Internal Medicine
DX: E11.9 Type 2 diabetes mellitus without complications (principal); I11.0 Hypertensive heart disease with heart failure; I50.22 Chronic systolic (congestive) heart failure; I42.0 Dilated cardiomyopathy; E78.1 Pure hyperglyceridemia; Z13.220 Encounter for screening for lipoid disorders; E55.9 Vitamin D deficiency, unspecified; Z12.5 Encounter for screening for malignant neoplasm of prostate
CPT/HCPCS: 36415; 80053; 80061; 82306; 84153; 84443; 85025; G0103

== ENCOUNTER → 2024-04-05 | Outpatient (CLI) | payer MEDICARE, SELFPAY ==
[2024-04-05 08:45] LABS: Absolute Lymphocyte Count 1.64 X10^3/uL (0.83-4.51); Absolute Neutrophil Count 3.9 X10^3/uL (2.0-7.7); Basophil# 0.03 X10^3/uL; Basophil% 0.5 % (0-1); Eosinophil# 0.12 X10^3/uL; Eosinophils% 1.9 % (0-5); Hematocrit 46.3 % (40-54); Hemoglobin 15.8 g/dL (13.0-16.5); Lymphocyte # 1.64 X10^3/ul (0.83-4.51); Lymphocyte % 25.8 % (19-41); Mean Corp Hgb Conc 34.1 g/dL (32-36); Mean Corpuscular Hgb 31.3 pg (27.0-32.0); Mean Corpuscular Volume 91.7 fL (80-94); Monocyte# 0.56 X10^3/uL; Monocyte% 8.8 % (0-10); NRBC Flagged by Analyzer 0 % (0-5); Neutrophil # 3.94 X10^3/uL (2.7-7.7); Neutrophil % 61.9 % (47-70); Platelet Count 221 K/mm3 (150-450); RBC Distribution Width CV 12.2 % (11.6-14.6); RBC Distribution Width SD 40.6 fl (35.1-43.9); Red Blood Count 5.05 M/mm3 (4.6-6.2); White Blood Count 6.4 K/mm3 (4.4-11.0)
[2024-04-05 09:12] LABS: ALB/GLOB Ratio 0.9 RATIO (0.9-2.4); AST(SGOT) 18 U/L (15-37); Alanine Aminotransfer ALT/SGPT 30 U/L (16-61); Albumin, Serum 3.7 g/dL (3.2-5.0); Alkaline Phosphatase 58 U/L (45-117); Anion Gap 6 (5-15); BUN 21 mg/dL (7-18); BUN/Creat Ratio 23.1 RATIO (10-20); Calcium,Total 9.3 mg/dL (8.5-10.1); Chloride 102 mmol/L (98-107); Cholesterol 183 mg/dL (200); Creatinine, Serum 0.91 mg/dL (0.70-1.30); EST Glomerular Filtration Rate 88 mL/min (>60); Est Glom Filt Rate - Afr Amer 106 mL/min (>60); Glucose 274 mg/dL (74-106); High Density Lipoprotein 33 mg/dL; Potassium 4.1 mmol/L (3.5-5.1); Protein, Total 7.7 g/dL (6.4-8.2); Sodium Level 134 mmol/L (136-145); Triglycerides 286 mg/dL; Very Low Density Lipoprotein 57 mg/dL (5-40)
[2024-04-05 09:16] LABS: Vitamin D,25 Hydroxy 27.8 ng/mL
[2024-04-05 11:40] LABS: Hemoglobin A1c 9.2 % (3.8-5.6)
== END | disposition home or self-care (01) ==
LOC: LAB 08:08
PROVIDERS: PCP Internal Medicine; Referring Provider Internal Medicine; Visit Provider Internal Medicine
DX: E11.65 Type 2 diabetes mellitus with hyperglycemia (principal); E78.1 Pure hyperglyceridemia; I10 Essential (primary) hypertension; Z13.220 Encounter for screening for lipoid disorders; R94.30 Abnormal result of cardiovascular function study, unspecified; E78.00 Pure hypercholesterolemia, unspecified; E55.9 Vitamin D deficiency, unspecified; Z95.810 Presence of automatic (implantable) cardiac defibrillator
CPT/HCPCS: 36415; 80053; 80061; 82306; 83036; 85025

== ENCOUNTER → 2024-07-14 | Outpatient (CLI) | payer MEDICARE, SELFPAY ==
[2024-07-14 09:00] LABS: Hemoglobin A1c 7.8 % (3.8-5.6)
[2024-07-14 09:07] LABS: AST(SGOT) 30 U/L (15-37); Alanine Aminotransfer ALT/SGPT 42 U/L (16-61); Albumin, Serum 3.8 g/dL (3.2-5.0); Alkaline Phosphatase 50 U/L (45-117); Anion Gap 8 (5-15); BUN 26 mg/dL (7-18); BUN/Creat Ratio 26.7 RATIO (10-20); Calcium,Total 9.9 mg/dL (8.5-10.1); Chloride 99 mmol/L (98-107); Creatinine, Serum 0.97 mg/dL (0.70-1.30); EST Glomerular Filtration Rate 81 mL/min (>60); Est Glom Filt Rate - Afr Amer 98 mL/min (>60); Globulin 3.8 g/dL (2.2-4.2); Glucose 163 mg/dL (74-106); Protein, Total 7.6 g/dL (6.4-8.2); Sodium Level 134 mmol/L (136-145)
== END | disposition home or self-care (01) ==
LOC: LAB 08:07
PROVIDERS: PCP Internal Medicine; Referring Provider Internal Medicine; Visit Provider Internal Medicine
DX: I11.0 Hypertensive heart disease with heart failure (principal); I50.22 Chronic systolic (congestive) heart failure; E11.65 Type 2 diabetes mellitus with hyperglycemia; Z95.810 Presence of automatic (implantable) cardiac defibrillator
CPT/HCPCS: 36415; 80053; 83036

== ENCOUNTER → 2024-11-22 | Outpatient (CLI) | payer MEDICARE, SELFPAY ==
[2024-11-22 11:45] LABS: Cholesterol 157 mg/dL (<=200); High Density Lipoprotein 34 mg/dL; Low Density Lipoprotein Calc. 71 mg/dL; Triglycerides 262 mg/dL; Very Low Density Lipoprotein 52 mg/dL (5-40); cholesterol:hdl ratio screen 4.69
[2024-11-22 11:54] LABS: ALB/GLOB Ratio 1.5 RATIO (0.9-2.4); AST(SGOT) 29 U/L (<=37); Alanine Aminotransfer ALT/SGPT 36 U/L (<=46); Albumin, Serum 4.4 g/dL (3.4-4.8); Alkaline Phosphatase 49 U/L (40-129); Anion Gap 12 (5-15); BUN 21 mg/dL (4-19); BUN/Creat Ratio 22.2 RATIO (10-20); Chloride 99 mmol/L (98-108); Creatinine, Serum 0.92 mg/dL (0.70-1.20); EST Glomerular Filtration Rate 90 (>60); Glucose 164 mg/dL (70-99); PSA,Total - Annual Screen 0.84 ng/mL (0.02-4.00); Potassium 4.6 mmol/L (3.3-5.1); Protein, Total 7.4 g/dL (5.9-8.4); Sodium Level 136 mmol/L (133-145); Total Bilirubin 0.36 mg/dL (0.00-1.30); Vitamin D,25 Hydroxy 27.3 ng/mL (30-100)
[2024-11-22 12:00] LABS: Hemoglobin A1c 7.5 % (<=5.6)
== END | disposition home or self-care (01) ==
LOC: LAB 08:46
PROVIDERS: PCP Internal Medicine; Visit Provider Internal Medicine
DX: E55.9 Vitamin D deficiency, unspecified (principal); I11.0 Hypertensive heart disease with heart failure; I50.22 Chronic systolic (congestive) heart failure; E11.51 Type 2 diabetes mellitus with diabetic peripheral angiopathy without gangrene; Z79.4 Long term (current) use of insulin; Z12.5 Encounter for screening for malignant neoplasm of prostate; E78.00 Pure hypercholesterolemia, unspecified; Z13.220 Encounter for screening for lipoid disorders
CPT/HCPCS: 36415; 80053; 80061; 82306; 83036; 84153; G0103